=== PATIENT | female | born 1965 | race Caucasian/White ===

== ENCOUNTER 2019-10-20 11:30 | Observation (INO) ==
[2019-10-20 12:18] LABS: Basophils # 0.1 K/mm3 (0-0.2); Basophils % 0.4 % (0.1-2.0); Eosinophils # 0.2 K/mm3 (0.0-0.4); Eosinophils % 1.3 % (0.1-12.0); Hematocrit 29.3 % (37.0-47.0); Hemoglobin 9.2 g/dL (12.2-16.2); Lymphocytes # 2.6 K/mm3 (0.7-4.5); Lymphocytes % 18.7 % (10-50); Mean Corpuscular HGB Conc 31.6 g/dL (31.8-35.4); Mean Corpuscular Volume 86.8 fl (81-99); Mean Platelet Volume 8.1 fl (7.4-10.4); Monocytes # 0.8 K/mm3 (0.1-1.0); Monocytes % 5.7 % (1.7-9.3); Neutrophils # 10.4 K/mm3 (1.8-7.8); Platelet Count 267 K/mm3 (142-424); Red Blood Count 3.37 M/mm3 (4.20-5.40); Red Cell Distribution Width 17.2 % (11.5-17.5); White Blood Count 14.1 K/mm3 (4.8-10.8)
--- NOTE | 2019-10-20 12:25 | Emergency Department Note ---
ED Disposition Clinical Impression: Upper GI bleed Shoulder pain Qualifiers: Chronicity: acute Laterality: bilateral Qualified Code(s): M25.511 - Pain in right shoulder; M25.512 - Pain in left shoulder Disposition: Admitted as Observation Condition on Discharge: Fair Referrals: Jairo Gibson [Primary Care Provider] - - Critical Care Critical Care Time: No Attestation: On 10/20/19, the high probability of a clinically significant, sudden or life threatening deterioration of the following system(s) required my full and direct attention, intervention and personal management. The time I documented below is in addition to time spent performing reported procedures but includes the following listed in this critical care notation. Medical Decision Making - Edwar Inquiry Pt receiving controlled substance: Yes Edwar was queried for this patient: No Reason not queried -: Emergent pt cond-no time Risks and benefits of using a controlled substance: were not discussed with pt by me Vital Signs: 10/20/19 11:47 Pulse Rate [Right] 81 Respiratory Rate 16 Blood Pressure [Right Arm] 106/62 L Blood Pressure Mean [Right Arm] 76 Blood Pressure Source [Right Arm] Automatic Cuff Blood Pressure Position [Right Arm] Sitting 02 Sat by Pulse Oximetry 100 Oxygen Delivery Method Room Air - Lab Data Lab Results 10/20/19 12:06: WBC 14.1 H, RBC 3.37 L, Hgb 9.2 L, Hct 29.3 L, MCV 86.8, MCH 27.4, MCHC 31.6 L, RDW 17.2, Plt Count 267, MPV 8.1, Neut % (Auto) 74.0, Lymph % (Auto) 18.7, [place] % (Auto) 5.7, Eos % (Auto) 1.3, Baso % (Auto) 0.4, Neut # (Auto) 10.4 H, Lymph # (Auto) 2.6, [place] # (Auto) 0.8, Eos # (Auto) 0.2, Baso # (Auto) 0.1 10/20/19 12:06: Sodium 139, Potassium 3.5, Chloride 106, Carbon Dioxide 28, Anion Gap 8.5, BUN 9, Creatinine 0.72, Estimated Creat Clear 86, Estimated GFR 84, Est GFR ( Amer) 102, Glucose 107 H, Calcium 8.6, Total Bilirubin 0.3, AST 26, ALT 27, Alkaline Phosphatase 90, Troponin I < 0.02, Total Protein 7.2, Albumin 2.9 L, Globulin 4.3 H, Albumin/Globulin Ratio 0.7 L, Amylase 21 L, Lipase 62 L 10/20/19 12:35: Stool Occult Blood Positive A 10/20/19 13:30: Urine Color Yellow, Urine Appearance Clear, Urine pH 6.5, Ur Specific [place] 1.015, Urine Protein Negative, Urine Glucose (UA) Negative, Urine Ketones Negative, Urine Blood Negative, Urine Nitrate Negative, Urine Bilirubin Negative, Urine Urobilinogen 0.2, Ur Leukocyte Esterase Negative, Urine RBC 5-10, Urine WBC 3-5, Ur Squamous Epith Cells 5-10, Amorphous Sediment Trace, Urine Mucus 1+ Result diagrams: 10/20/19 12:06 10/20/19 12:06 Orders (Tests/Meds): ED MEDICATIONS Discontinued Medications Generic Name Dose Route Start Last Admin Trade Name Freq PRN Reason Stop Dose Admin Sodium Chloride 1,000 mls @ 999 mls/hr 10/20/19 12:15 10/20/19 12:13 Sod Chlor 0.9% 1000ml Bag IV 10/20/19 13:15 999 mls/hr .Q1H1M JAVIER Administration Ioversol 75 ml 10/20/19 13:11 10/20/19 13:13 Rad-Optiray 350 100ml Vial IV 10/20/19 13:12 75 ml ONCE ONE Administration Protocol Morphine Sulfate 4 mg 10/20/19 12:48 10/20/19 13:27 Morphine 4mg/Ml Syringe IV 10/20/19 12:49 4 mg ONCE ONE Administration Ondansetron HCl 4 mg 10/20/19 12:48 10/20/19 13:26 Zofran 4mg/2ml Vial IV 10/20/19 12:49 4 mg ONCE ONE Administration ORDERS Category Date Time Status Shoulder XR right miminum 2 views [XR shoulder RT min Exams 10/20/19 12:41 Taken 2V] Stat Troponin I Q3H Lab 10/20/19 15:15 Ordered Troponin I Q3H Lab 10/20/19 18:15 Ordered - Radiology Data #1 Image(s): Chest, Shoulder (bilateral) Image Reviewed: Yes I reviewed the patient's radiology image Chest: Minimal atelectasis left base. Right shoulder: Degenerative changes at the AC joint. No acute process. Left shoulder: No significant findings. - CT Data CT Scan: Abdomen, Pelvis Time Received: 13:[address] Reviewed: Yes: I have viewed the radiologist's interpretation Findings Narrative: FINDINGS: LOWER THORAX: Coronary artery calcifications are. There are mild atelectatic changes in the lung bases there is a small nodular opacity noted in the lateral aspect of the right breast. While this could be related to fibroglandular tissue, a small breast nodule is also consideration. Nonemergent mammography and possible ultrasound suggested evaluation. ABDOMEN & PELVIS: Fatty liver. Cholelithiasis. The spleen, pancreas, and right adrenal gland marker below. Left adrenal gland is mildly with low-density changes consistent with an adenoma. There are nonobstructing bilateral renal calculi measuring 3 mm in the mid polar region on right and 3 mm in the upper pole on the left. No hydronephrosis. No ureteral calculi. There is given history of prior appendectomy and hysterectomy. No intestinal obstruction or free air. There are scattered colonic diverticula but no evidence of diverticulitis. No pelvic mass or abnormal fluid collection evident. There are mild degenerative changes in the spine. IMPRESSION: 1. Cholelithiasis with fatty liver. 2. Nonobstructing bilateral renal calculi 3. Diverticulosis of the colon. No evidence of diverticulitis 4. Bibasilar atelectasis. 5. 5 mm nodular opacity right breast. Consider nonemergent mammography and ultrasound for further evaluation. Dictated by: Marquez Horowitz MD 10/20/2019 13:43 Electronically signed by Marquez Horowitz MD in [place] 10/20/2019 13:43 - ECG Data Tracing #1 EKG interpreted by Kishan Prakash MD: Rhythm: sinus Rate: 79 Christopher: normal Ectopy: Unifocal premature ventricular contractions Conduction: QTC [address] Segment Changes: none T Wave Changes: none Q Waves: none No evidence of acute ischemia or injury Baseline artifact and wander present, but I consider the EKG adequate for accu rate interpretation. - Physician Consults Physician Consulted: Minnie Time: 14:05 Reason -: Gastroenterolgy Eval/Care Comment/Response: He is out of town and not available. Nobody is covering. No other gastroenterologists at [facility]. Additional Consult: Anna Time: 14:15 Reason -: Admission Comment/Response: Agrees to admit the patient to the hospital. We discussed the patient's clinical information, including history, exam, laboratory and radiology results and ED course. Per hospital procedure, I will write temporary bridge inpatient orders on the patient. Specific orders requested by the admitting physician: Protonix drip. Serial hemoglobins. General Adult HPI - General Chief complaint: Extremity Injury, Upper Stated complaint: shoulders hurting bleeding from ulcers Time Seen by Provider: 10/20/19 12:24 Mode of Arrival: Ambulatory Limitations: No Limitations Description of Symptoms (Recalled from ER Triage Doc. by RN): Patient come to the ED with complaints of bilateral shoulder pain that started last night. Patient explains that she was discharged from [facility] on wednesday from having bleeding ulcers. Patient reports that she is still having bloody stools as of this morning. - History of Present Illness HPI narrative: Patient complains of bilateral shoulder pain and bloody stool. She says that henrik harper was taken by ambulance to [facility] on Wednesday 4 days ago. She says she has been having abdominal pain for couple of days and then began having vomiting of blood and blood in her stool, both black and red. She had upper endoscopy and says that she was diagnosed with a bleeding ulcer. She was discharged on amoxicillin and Protonix. She went home on Wednesday, 2 days ago. She had not had a bowel movement since discharged until today and noticed that she still was passing black and red blood. She denies current abdominal pain. She says on her way home from the hospital on Wednesday she noticed that her left shoulder was hurting and since then also her right shoulder has begun to her. Both hurt with movement. Left is worse than right. Her primary care doctor is Dr. Maki, she says he works out of [place] in [facility]. She lives in [place]. She says she went to [facility] by ambulance because she did not have a choice of where she went, but d oes not like [facility] and prefers [facility]. She came here by private vehicle today. Review of her paperwork from discharge at [facility] shows that her hemoglobin was 9.4. She says she did not have to receive a blood transfusion. She says that she has called to schedule an appointment with the primer charger, Dr. Hartman, but has not received a return call. - Related Data Home Medications Medication Instructions Recorded Confirmed Amoxicillin [Amoxicillin 500mg Tab] 500 mg PO DAILY 10/20/19 10/20/19 Fluticasone Propionate [Flovent 50 mcg IH DAILY 10/20/19 10/20/19 Diskus] Pantoprazole Sodium [Protonix 40mg 40 mg PO BID 10/20/19 10/20/19 tablet] Ropinirole HCl 0.5 mg PO DAILY 10/20/19 10/20/19 Allergies Allergy/AdvReac Type Severity Reaction Status Date / Time No Known Allergies Allergy Verified 10/20/19 11:56 [facility] History - Hepatitis A Screen Drug use history?: No High risk sexual behaviors?: No History of sexually transmitted infection?: No Currently employed?: No Childcare worker?: No Do you have indoor plumbing?: Yes Do you have electricity?: Yes Attestation statement:: This patient has been screened for Hepatitis A risk factors. I have reviewed the patient's past medical history: Yes - Social History Alcohol Intake: never Occupational Status: disabled ROS Obtained: Yes All systems reviewed & no additional complaints - Constitutional Constitutional: Denies fever(s) - Cardiovascular Cardiovascular: Denies chest pain - Respiratory Respiratory: No dyspnea - Gastrointestinal Gastrointestingal: Reports: bright red blood in stools, black, tarry stools. Denies: abdominal pain - Musculoskeletal Musculoskeletal: Reports as per HPI Physical Exam - General General appearance: alert, in no apparent distress - Head Head exam: atraumatic, normocephalic - Eye Eye exam: Present: normal appearance, EOMI - ENT ENT exam: Present: mucous membranes moist - Neck Neck exam: Present: normal inspection, trachea midline - Chest Chest inspection: Present: normal inspection, symmetric chest wall rise - Respiratory Respiratory exam: Present: normal lung sounds bilaterally. Absent: respiratory distress - Cardiovascular Cardiovascular exam: Present: regular rate, normal rhythm, normal heart sounds - Abdominal Exam Abdominal exam: Present: soft. Absent: distention, tenderness - Rectal Exam comment: Maroon-colored blood/stool present. No masses. - Extremities Exam Extremities exam: Present: normal inspection - Neurological Exam Neurological exam: Present: alert, oriented X3 - Psychiatric Psychiatric exam: Present: normal affect, normal mood - Skin Skin exam: Present: warm, dry
[2019-10-20 12:36] LABS: Alanine Aminotransferase 27 U/L (12-78); Albumin Level 2.9 gm/dL (3.4-5.0); Albumin/Globulin Ratio 0.7 (1.1-1.8); Alkaline Phosphatase 90 U/L (46-116); Amylase 21 U/L (25-115); Anion Gap 8.5 mEq/L (5-15); Aspartate Amino Transferase 26 U/L (15-37); Bilirubin,Total 0.3 mg/dL (0.2-1.0); Blood Urea Nitrogen 9 mg/dL (7-18); Calcium 8.6 mg/dL (8.5-10.1); Carbon Dioxide 28 mmol/L (21.0-32.0); Chloride 106 mmol/L (98-107); Globulin 4.3 gm/dl (1.3-3.2); Glucose 107 mg/dL (74-106); Sodium 139 mmol/L (136-145); Total Protein,Serum 7.2 gm/dL (6.4-8.2)
[2019-10-20 13:37] LABS: Microscopic, Urine URINE MICROSCOPIC (MICROSCOPIC)
[2019-10-20 13:38] LABS: Appearance,Urine CLEAR (Clear); Bilirubin,Urine Negative (Negative); Blood, Urine Negative (Negative); Color,Urine YELLOW (Yellow); Glucose,Urine (UA) Negative (Negative); Ketones,Urine Negative (Negative); Leukocyte Esterase,Urine Negative (Negative); PH,Urine 6.5 (5.0-8.5); Protein,Urine Negative (Negative); Specific Gravity, Urine 1.015 (1.005-1.030); Urobilinogen,Urine 0.2 EU/dl (0.2)
[2019-10-20 13:48] LABS: Amorphous Sediment,Urine Trace /lpf
[2019-10-20 13:49] LABS: Mucus,Urine 1+ /lpf
--- NOTE | 2019-10-20 15:01 | History & Physical Report ---
*Admission Date: 10/20/19 <Pati Farrar 10/20/19 15:26> *Chief complaint: shoulder pain, GI bleed <Pati Farrar 10/20/19 15:26> *History of present illness: Ms. Michelle is a 54-year-old female patient of Dr. Acosta. She states she began having stomach pain on October 13. This continued until October 16. On the morning of October 16, she had an episode of diarrhea with dark black stool. She then had some hematemesis. She presented to [facility] and was admitted. She had an EGD and was diagnosed with a stomach ulcer. She states she was discharged home on 10/18/2019 on Protonix, amoxicillin, and nose spray. She is unsure why she was discharged on the hunter xicillin and nose spray. She had no further vomiting or episodes of diarrhea until this morning. She had another bloody bowel movement this a.m. and began having severe pain in both of her shoulders. She presented to the ER for further evaluation and treatment. X-rays were done of the shoulders. The right shoulder x-ray showed osteoarthritis of the AC joint with some subacromial stenosis and possible calcific tendinitis. The left shoulder x-ray only showed mild hypertrophic changes at the AC joint. Her chest x-ray showed bibasilar atelectasis but nothing acute. She had an abdominal pelvic CT showing cholelithiasis with fatty liver, nonobstructing bilateral renal calculi, diverticulosis of the gland, and a 5 mm nodular opacity in the right breast. She was admitted for a GI bleed and started on a Protonix drip. Her H&H will be monitored. <Pati Farrar - 10/20/19 15:26> [facility] History I have reviewed the patient's past medical history: Yes <Pati Farrar 10/20/19 15:26> Medical History: Reports:: Ulcer Denies:: Diabetes Mellitus Type 2, Hyperlipidemia, Hypertension <Pati Farrar 10/20/19 15:26> *Have you ever received a pneumonia vaccine?: No <Pati Farrar 10/20/19 15:26> *Have you received a flu vaccine this season?: No <Pati Farrar 10/20/19 15:26> Other Surgeries: Yes: Appendectomy, Hysterectomy-Partial <Pati Farrar 10/20/19 15:26> - *Social History Smoking Status: Current every day smoker <Pati Farrar 10/20/19 15:26> # Packs/Day (cigarettes): 2 <Pati Farrar 10/20/19 15:26> Alcohol Intake: never <Pati Farrar 10/20/19 15:26> *Occupational Status:: disabled <Pati Farrar 10/20/19 15:26> *Travel in the last 8 weeks: None <Pati Farrar 10/20/19 15:26> Family Hx:: Cancer, Diabetes, Heart Attack, Hypertension, Stroke <Pati Farrar 10/20/19 15:26> Review of Systems - Constitutional Reports fever(s), Reports weakness, Denies chills <Pati Farrar 10/20/19 15:26> - Eyes Denies blurry vision, Denies double vision <Pati Farrar 10/20/19 15:26> - ENT Denies nasal congestion, Denies sore throat <Pati Farrar 10/20/19 15:26> - *Cardiovascular Reports shortness of breath, Denies chest pain <Pati Farrar 10/20/19 15:26> - *Respiratory Reports cough, Denies shortness of breath <Pati Farrar 10/20/19 15:26> - *Gastrointestinal Reports loose stools, Reports black, tarry stools, Denies abdominal pain, Denies vomiting blood, Denies nausea, Denies vomiting <Pati Farrar 10/20/19 15:26> - *Genitourinary Denies difficulty urinating, Denies painful urination <Pati Farrar 10/20/19 15:26> - *Musculoskeletal Reports joint pain (bilateral shoulders) <Pati Farrar 10/20/19 15:26> - *Neurologic Reports weakness, Denies headache(s), Denies dizziness <Pati Farrar 10/20/19 15:26> Meds Home Medications Medication Instructions Recorded Confirmed Type Amoxicillin [Amoxicillin 500mg Tab] 500 mg PO TID 10/20/19 10/20/19 History Fluticasone Propionate [Flonase 2 spr NS DAILY 10/20/19 10/20/19 History 50mcg nasal spray 16gm] Pantoprazole Sodium [Protonix 40mg 40 mg PO BID 10/20/19 10/20/19 History tablet] Ropinirole HCl 0.5 mg PO HS 10/20/19 10/20/19 History <Asim Castillo - 10/20/19 18:17> Allergies Allergy/AdvReac Type Severity Reaction Status Date / Time No Known Allergies Allergy Verified 10/20/19 11:56 <Asim Castillo - 10/20/19 18:17> Exam Vital signs and Labs for Last 24 Hours: Temp Pulse Resp BP Pulse Ox 97.8 F 87 18 111/57 L 97 10/20/19 16:00 10/20/19 16:00 10/20/19 16:00 10/20/19 16:00 10/20/19 16:53 Laboratory Results - last 24 hr 10/20/19 12:06: WBC 14.1 H, RBC 3.37 L, Hgb 9.2 L, Hct 29.3 L, MCV 86.8, MCH 27.4, MCHC 31.6 L, RDW 17.2, Plt Count 267, MPV 8.1, Neut % (Auto) 74.0, Lymph % (Auto) 18.7, [place] % (Auto) 5.7, Eos % (Auto) 1.3, Baso % (Auto) 0.4, Neut # (Auto) 10.4 H, Lymph # (Auto) 2.6, [place] # (Auto) 0.8, Eos # (Auto) 0.2, Baso # (Auto) 0.1 10/20/19 12:06: Sodium 139, Potassium 3.5, Chloride 106, Carbon Dioxide 28, Anion Gap 8.5, BUN 9, Creatinine 0.72, Estimated Creat Clear 86, Estimated GFR 84, Est GFR ( Amer) 102, Glucose 107 H, Calcium 8.6, Total Bilirubin 0.3, AST 26, ALT 27, Alkaline Phosphatase 90, Troponin I < 0.02, Total Protein 7.2, Albumin 2.9 L, Globulin 4.3 H, Albumin/Globulin Ratio 0.7 L, Amylase 21 L, Lipase 62 L 10/20/19 12:35: Stool Occult Blood Positive A 10/20/19 13:30: Urine Color Yellow, Urine Appearance Clear, Urine pH 6.5, Ur Specific [place] 1.015, Urine Protein Negative, Urine Glucose (UA) Negative, Urine Ketones Negative, Urine Blood Negative, Urine Nitrate Negative, Urine Bilirubin Negative, Urine Urobilinogen 0.2, Ur Leukocyte Esterase Negative, Urine RBC 5-10, Urine WBC 3-5, Ur Squamous Epith Cells 5-10, Amorphous Sediment Trace, Urine Mucus 1+ 10/20/19 15:19: Troponin I < 0.02 <Asim Castillo - 10/20/19 18:17> Pulse Resp BP Pulse Ox 81 16 106/62 L 100 10/20/19 11:47 10/20/19 11:47 10/20/19 11:47 10/20/19 11:47 Laboratory Results - last 24 hr 10/20/19 12:06: WBC 14.1 H, RBC 3.37 L, Hgb 9.2 L, Hct 29.3 L, MCV 86.8, MCH 27.4, MCHC 31.6 L, RDW 17.2, Plt Count 267, MPV 8.1, Neut % (Auto) 74.0, Lymph % (Auto) 18.7, [place] % (Auto) 5.7, Eos % (Auto) 1.3, Baso % (Auto) 0.4, Neut # (Auto) 10.4 H, Lymph # (Auto) 2.6, [place] # (Auto) 0.8, Eos # (Auto) 0.2, Baso # (Auto) 0.1 10/20/19 12:06: Sodium 139, Potassium 3.5, Chloride 106, Carbon Dioxide 28, Anion Gap 8.5, BUN 9, Creatinine 0.72, Estimated Creat Clear 86, Estimated GFR 84, Est GFR ( Amer) 102, Glucose 107 H, Calcium 8.6, Total Bilirubin 0.3, AST 26, ALT 27, Alkaline Phosphatase 90, Troponin I < 0.02, Total Protein 7.2, Albumin 2.9 L, Globulin 4.3 H, Albumin/Globulin Ratio 0.7 L, Amylase 21 L, Lipase 62 L 10/20/19 12:35: Stool Occult Blood Positive A 10/20/19 13:30: Urine Color Yellow, Urine Appearance Clear, Urine pH 6.5, Ur Specific [place] 1.015, Urine Protein Negative, Urine Glucose (UA) Negative, Urine Ketones Negative, Urine Blood Negative, Urine Nitrate Negative, Urine Bilirubin Negative, Urine Urobilinogen 0.2, Ur Leukocyte Esterase Negative, Urine RBC 5-10, Urine WBC 3-5, Ur Squamous Epith Cells 5-10, Amorphous Sediment Trace, Urine Mucus 1+ <Luis ManuelteresitaPati - 10/20/19 15:26> I & O for Last 24 hours: Intake & Output 10/18/19 10/19/19 10/20/19 10/21/19 11:59 11:59 11:59 11:59 Intake Total 360 / 360 Balance 360 / 360 Weight 315 lb 313 lb 5 oz <AnnaAsim Stroud - 10/20/19 18:17> Intake & Output 10/18/19 10/19/19 10/20/19 10/21/19 11:59 11:59 11:59 11:59 Weight 315 lb <CharanPati 10/20/19 15:26> - Constitutional no acute distress <Luis ManuelteresitaPati 10/20/19 15:26> - *Routine HEENT Exam Head: Present: normocephalic <Luis ManuelteresitaPati 10/20/19 15:26> Eye: Present: EOMI, PERRL <Luis ManuelteresitaPati 10/20/19 15:26> ENT: Present: mucous membranes moist <CharanPati 10/20/19 15:26> - *Routine Neck Exam Present: supple. Absent: lymphadenopathy <CharanPati 10/20/19 15:26> - *Routine Respiratory Exam Present: CTA bilaterally <CharanPati 10/20/19 15:26> - *Routine Cardiovascular Exam Present: RRR <CharanPati 10/20/19 15:26> - *Routine Abdominal Exam Present: soft, normoactive bowel sounds. Absent: tenderness <CharanPati 10/20/19 15:26> - *Routine Extremities Exam Present: edema (1+ leg edema bilaterally). Absent: cyanosis, clubbing <Pati Farrar 10/20/19 15:26> - *Routine Skin Exam Present: warm. Absent: rash <Pati Farrar - 10/20/19 15:26> - *Routine Neurological Exam Present: alert, oriented X3 <Pati Farrar 10/20/19 15:26> - Detailed Upper Extremity Exam Shoulder/Upper Arm: Bilateral normal inspection, Bilateral tenderness (over bilateral AC joints), Bilateral decreased ROM <Pati Farrar - 10/20/19 15:26> H&P: Result - Impressions Abd CT 1. Cholelithiasis with fatty liver. 2. Nonobstructing bilateral renal calculi 3. Diverticulosis of the colon. No evidence of diverticulitis 4. Bibasilar atelectasis. 5. 5 mm nodular opacity right breast. Consider nonemergent mammography and ultrasound for further evaluation. CXR - Bibasilar atelectasis otherwise negative X-ray Right Shoulder Osteoarthritic change of the AC joint with bony spurring and subacromial stenosis with possible calcific tendinitis X-ray left shoulder Mild hypertrophic change of the AC joint otherwise negative <Pati Farrar - 10/20/19 15:26> Assessment and Plan (1) Upper GI bleed Current visit: Yes Status: Acute Category: Medical Code(s): K92.2 - Gastrointestinal hemorrhage, unspecified (2) Shoulder pain Current visit: Yes Status: Acute Qualifiers: Chronicity: acute Laterality: bilateral Qualified Code(s): M25.511 - Pain in right shoulder; M25.512 - Pain in left shoulder Category: Medical Code(s): M25.519 - Pain in unspecified shoulder <Pati Farrar - 10/20/19 14:58> (1) Upper GI bleed Current visit: Yes Status: Acute Category: Medical Code(s): K92.2 - Gastrointestinal hemorrhage, unspecified (2) Shoulder pain Current visit: Yes Status: Acute Qualifiers: Chronicity: acute Laterality: bilateral Qualified Code(s): M25.511 - Pain in right shoulder; M25.512 - Pain in left shoulder Category: Medical Code(s): M25.519 - Pain in unspecified shoulder <AnnaAsim Maximus - 10/20/19 18:17> - Assessment and plan all Dx Assessment and Plan for all problems:: Patient seen and examined. Her chief complaint is bilateral shoulder pain which has started since she was discharged from [place] 2 days ago. No other joints are bothering her. She has had no known injuries to the joints. I have reviewed her shoulder x-rays which show only minor arthritic changes not significant enough to account for her pain. She is tender to light palpation all around the shoulder joints bilaterally. In reviewing the side effect profile for Protonix, arthralgia is listed as an adverse reaction. For the time being, we will discontinue her Protonix and place her on IV Pepcid. She has had some relief with the Percocet. I will also give her a dose of Solu-Medrol tonight. In terms of her recent ulcer and GI bleeding, her hemoglobin appears to be stable. We will check serial H&H's tonight. Likely she is experiencing passage of old blood from her recent upper GI bleeding. <Asim Castillo - 10/20/19 18:17> Will admit and start on a protonix drip and check serial H&H's. Will discuss shoulder pain with Dr. Castillo. <Pati Farrar - 10/20/19 15:26>
--- NOTE | 2019-10-20 15:48 | Pharmacy Consult Notes ---
[facility] Pharmacy VTE Monitoring - Patient Demographics Admission date: 10/20/19 Report Date: 10/20/19 Time: 15:55 Allergies/Adverse Reactions: Patient Allergies No Known Allergies Allergy (Verified 10/20/19 11:56) Height: 1.7 m Weight: 142.116 kg Patient Problems: Current Active Problems Upper GI bleed (Acute) Shoulder pain (Acute) - VTE Risk Labs: VTE Related Lab Results Hgb 9.2 g/dL (12.2-16.2) L 10/20/19 12:06 Hct 29.3 % (37.0-47.0) L 10/20/19 12:06 Plt Count 267 K/mm3 (142-424) 10/20/19 12:06 BUN 9 mg/dL (7-18) 10/20/19 12:06 Creatinine 0.72 mg/dL (0.55-1.02) 10/20/19 12:06 Estimated Creat Clear 86 mL/min (50-200) 10/20/19 12:06 - Prophylaxis VTE Prophylaxis Ordered?: Yes Types of VTE Prophylaxis: TEDS Knee High Location of Applied Device: Bilateral Lower Extremeties
[2019-10-20 22:15] LABS: Basophils % 0.2 % (0.1-2.0); Eosinophils % 0.3 % (0.1-12.0); Hemoglobin 8.6 g/dL (12.2-16.2); Lymphocytes # 1.1 K/mm3 (0.7-4.5); Mean Corpuscular HGB Conc 32.1 g/dL (31.8-35.4); Mean Corpuscular Volume 83.8 fl (81-99); Monocytes # 0.3 K/mm3 (0.1-1.0); Monocytes % 2.4 % (1.7-9.3); Neutrophils # 12.1 K/mm3 (1.8-7.8); Neutrophils % 89.1 % (37.0-80.0); Platelet Count 243 K/mm3 (142-424); Red Blood Count 3.21 M/mm3 (4.20-5.40); Red Cell Distribution Width 16.4 % (11.5-17.5); White Blood Count 13.5 K/mm3 (4.8-10.8)
[2019-10-20 22:16] LABS: Hematocrit 26.9 % (37.0-47.0)
[2019-10-20 22:34] LABS: Lymphocytes % 8 % (10-50); Monocytes % 1 % (2-9); Neutrophils % 84 % (42-76); Total Cells Counted 100
[2019-10-20 22:35] LABS: RBC Morphology Normal
[2019-10-21 06:34] LABS: Basophils % 0.1 % (0.1-2.0); Eosinophils % 0.1 % (0.1-12.0); Hematocrit 26.6 % (37.0-47.0); Hemoglobin 8.5 g/dL (12.2-16.2); Lymphocytes # 1.5 K/mm3 (0.7-4.5); Lymphocytes % 10.8 % (10-50); Mean Corpuscular HGB Conc 31.9 g/dL (31.8-35.4); Mean Corpuscular Volume 85.1 fl (81-99); Mean Platelet Volume 8.4 fl (7.4-10.4); Monocytes # 0.6 K/mm3 (0.1-1.0); Monocytes % 3.8 % (1.7-9.3); Neutrophils # 12.2 K/mm3 (1.8-7.8); Neutrophils % 85.3 % (37.0-80.0); Platelet Count 247 K/mm3 (142-424); Red Blood Count 3.12 M/mm3 (4.20-5.40); Red Cell Distribution Width 16.2 % (11.5-17.5); White Blood Count 14.3 K/mm3 (4.8-10.8)
[2019-10-21 07:07] LABS: Hypochromasia 1+; Lymphocytes % 11 % (10-50); Monocytes % 4 % (2-9); Neutrophils % 85 % (42-76); Total Cells Counted 100
--- NOTE | 2019-10-21 08:44 | Progress Note ---
Internal Medicine - PN: Subj *Date: 10/21/19 *Time: 08:25 Interval history: She finally rested some last night after better pain control with the Percocet. Her left shoulder pain has almost completely resolved. She still has significant pain in the right shoulder with decreased range of motion. Denies abdominal pain or nausea. She is tolerating her diet. Exam Vital signs and Labs for Last 24 Hours: Temp Pulse Resp BP Pulse Ox 97.6 F 71 18 107/64 L 98 10/21/19 07:18 10/21/19 07:18 10/21/19 07:18 10/21/19 07:18 10/21/19 07:30 Laboratory Results - last 24 hr 10/20/19 12:06: WBC 14.1 H, RBC 3.37 L, Hgb 9.2 L, Hct 29.3 L, MCV 86.8, MCH 27.4, MCHC 31.6 L, RDW 17.2, Plt Count 267, MPV 8.1, Neut % (Auto) 74.0, Lymph % (Auto) 18.7, [place] % (Auto) 5.7, Eos % (Auto) 1.3, Baso % (Auto) 0.4, Neut # (Auto) 10.4 H, Lymph # (Auto) 2.6, [place] # (Auto) 0.8, Eos # (Auto) 0.2, Baso # (Auto) 0.1 10/20/19 12:06: Sodium 139, Potassium 3.5, Chloride 106, Carbon Dioxide 28, Anion Gap 8.5, BUN 9, Creatinine 0.72, Estimated Creat Clear 86, Estimated GFR 84, Est GFR ( Amer) 102, Glucose 107 H, Calcium 8.6, Total Bilirubin 0.3, AST 26, ALT 27, Alkaline Phosphatase 90, Troponin I < 0.02, Total Protein 7.2, Albumin 2.9 L, Globulin 4.3 H, Albumin/Globulin Ratio 0.7 L, Amylase 21 L, Lipase 62 L 10/20/19 12:06: ESR 121 H 10/20/19 12:06: C-Reactive Protein 6.2 H 10/20/19 12:35: Stool Occult Blood Positive A 10/20/19 13:30: Urine Color Yellow, Urine Appearance Clear, Urine pH 6.5, Ur Specific [place] 1.015, Urine Protein Negative, Urine Glucose (UA) Negative, Urine Ketones Negative, Urine Blood Negative, Urine Nitrate Negative, Urine Bilirubin Negative, Urine Urobilinogen 0.2, Ur Leukocyte Esterase Negative, Urine RBC 5-10, Urine WBC 3-5, Ur Squamous Epith Cells 5-10, Amorphous Sediment Trace, Urine Mucus 1+ 10/20/19 15:19: Troponin I < 0.02 10/20/19 18:13: Troponin I < 0.02 10/20/19 21:08: WBC 13.5 H, RBC 3.21 L, Hgb 8.6 L, Hct 26.9 L, MCV 83.8, MCH 26.9 L, MCHC 32.1, RDW 16.4, Plt Count 243, MPV 8.0, Neut % (Auto) 89.1 H, Lymph % (Auto) 8.0 L, [place] % (Auto) 2.4, Eos % (Auto) 0.3, Baso % (Auto) 0.2, Neut # (Auto) 12.1 H, Lymph # (Auto) 1.1, [place] # (Auto) 0.3, Eos # (Auto) 0.0, Baso # (Auto) 0.0, Total Counted 100, Neutrophils % (Manual) 84 H, Band Neutrophils % 7.0, Lymphocytes % (Manual) 8 L, Monocytes % (Manual) 1 L, Platelet Estimate Normal, RBC Morphology Normal 10/21/19 05:55: WBC 14.3 H, RBC 3.12 L, Hgb 8.5 L, Hct 26.6 L, MCV 85.1, MCH 27.1, MCHC 31.9, RDW 16.2, Plt Count 247, MPV 8.4, Neut % (Auto) 85.3 H, Lymph % (Auto) 10.8, [place] % (Auto) 3.8, Eos % (Auto) 0.1, Baso % (Auto) 0.1, Neut # (Auto) 12.2 H, Lymph # (Auto) 1.5, [place] # (Auto) 0.6, Eos # (Auto) 0.0, Baso # (Auto) 0.0, Total Counted 100, Neutrophils % (Manual) 85 H, Lymphocytes % (Manual) 11, Monocytes % (Manual) 4, Platelet Estimate Normal, Hypochromasia 1+ I & O for Last 24 hours: Intake & Output 10/18/19 10/19/19 10/20/19 10/21/19 11:59 11:59 11:59 11:59 Intake Total 1420 / 1420 Balance 1420 / 1420 Weight 315 lb 318 lb 4 oz Narrative: Is sitting up in bed and appears in no acute distress. Chest with coarse breath sounds. No rales or wheezes. Heart is distant but regular. Abdomen is nondistended with no masses or tenderness. Left shoulder shows minimal AC tenderness. She has full range of motion of the left shoulder. Right shoulder shows no deformity. She has tenderness to palpation over the AC joint and anterior shoulder Assessment and Plan (1) Peptic ulcer disease Current visit: Yes Status: Acute Category: Medical Code(s): K27.9 - Peptic ulcer, site unspecified, unspecified as acute or chronic, without hemorrhage or perforation (2) Blood loss anemia Current visit: Yes Status: Acute Category: Medical Code(s): D50.0 - Iron deficiency anemia secondary to blood loss (chronic) (3) Shoulder pain Current visit: Yes Status: Acute Qualifiers: Chronicity: acute Laterality: bilateral Qualified Code(s): M25.511 - Pain in right shoulder; M25.512 - Pain in left shoulder Category: Medical Code(s): M25.519 - Pain in unspecified shoulder - Assessment and plan all Dx Assessment and Plan for all problems:: She has had a slight drop in her hemoglobin overnight but is hemodynamically stable. Etiology of shoulder pain is still unclear. The left shoulder pain has resolved but the right shoulder pain persists. Sed rate and CRP are elevated consistent with an inflammatory reaction. Literature does list arthralgias as a potential adverse reaction to Protonix. Plan is to repeat her H&H at noon today. If it remains stable, she can likely be discharged later today
[2019-10-21 12:12] LABS: Basophils # 0.1 K/mm3 (0-0.2); Basophils % 0.3 % (0.1-2.0); Eosinophils % 0.2 % (0.1-12.0); Hematocrit 28.9 % (37.0-47.0); Hemoglobin 9.1 g/dL (12.2-16.2); Lymphocytes # 2.3 K/mm3 (0.7-4.5); Lymphocytes % 11.8 % (10-50); Mean Corpuscular HGB Conc 31.5 g/dL (31.8-35.4); Mean Corpuscular Volume 85.5 fl (81-99); Mean Platelet Volume 8.4 fl (7.4-10.4); Monocytes # 1.1 K/mm3 (0.1-1.0); Monocytes % 5.9 % (1.7-9.3); Neutrophils # 15.7 K/mm3 (1.8-7.8); Neutrophils % 81.7 % (37.0-80.0); Platelet Count 320 K/mm3 (142-424); Red Blood Count 3.38 M/mm3 (4.20-5.40); Red Cell Distribution Width 16.1 % (11.5-17.5); White Blood Count 19.2 K/mm3 (4.8-10.8)
[2019-10-21 12:21] LABS: Anion Gap 13.4 mEq/L (5-15); Calcium 8.5 mg/dL (8.5-10.1)
--- NOTE | 2019-10-23 13:19 | Discharge Summary ---
General - General Admission date:: 10/20/19 <Asim Castillo - 11/18/19 08:35> 10/20/19 <GuevaraMarilouMarylin - 10/23/19 13:25> Discharge date: 10/21/19 <WatermanMarylin kong - 10/23/19 13:25> HPI HPI: Ms. Michelle is a 54-year-old female patient of Dr. Acosta. She stated she began having stomach pain on October 13. This continued until October 16. On the morning of October 16, she had an episode of diarrhea with dark black stool. She then had some hematemesis. She presented to [facility] and was admitted. She had an EGD and was diagnosed with a stomach ulcer. She sta rakel she was discharged home on 10/18/2019 on Protonix, amoxicillin, and nose spray. She is unsure why she was discharged on the amoxicillin and nose spray. She had no further vomiting or episodes of diarrhea until the morning of admission. She had another bloody bowel movement as well and began having severe pain in both of her shoulders. She presented to the ER for further evaluation and treatment. X-rays were done of the shoulders. The right shoulder x-ray showed osteoarthritis of the AC joint with some subacromial stenosis and possible calcific tendinitis. The left shoulder x-ray only showed mild hypertrophic changes at the AC joint. Her chest x-ray showed bibasilar atelectasis but nothing acute. She had an abdominal pelvic CT showing cholelithiasis with fatty liver, nonobstructing bilateral renal calculi, diverticulosis of the gland, and a 5 mm nodular opacity in the right breast. She was admitted for a GI bleed and started on a Protonix drip with monitoring of her H&H. <Marylin Waterman - 10/23/19 13:25> Hospital Course Hospital Course: Patient's chief complaint was bilateral shoulder pain which started since discharge from [facility] 2 days prior to the admission to [facility]. No other joints were bothering her. She noted no known injuries to the joints. Review of shoulder x-rays showed only minor arthritic changes not significant enough to account for her pain. She was tender to light palpation all around the shoulder joints bilaterally. In review of the side effect profile for Protonix, arthralgia was listed as an adverse reaction. The Protonix was replaced with IV Pepcid. She was noted to have some relief with the Percocet. She was given a dose of Solu-Medrol. In terms of her recent ulcer and GI bleeding, her hemoglobin remained stable. She was felt to be experiencing passage of old blood from her recent upper GI bleeding accounting for the positive occult blood in the stool. She tolerated her diet well. Sed rate and CRP was noted to be elevated consistent with an inflammatory reaction. On 10/21 she seemed to be better. She was discharged home in stable and satisfactory condition. She was given a small amount of Percocet until follow- up with her PCP, Dr. Gibson, in 3 days. She was to continue with the amoxicillin and omeprazole. <Marylin Waterman - 10/23/19 13:58> Objective Vital signs: Temp Pulse Resp BP Pulse Ox 98.7 F 69 19 107/58 L 96 10/21/19 11:17 10/21/19 11:17 10/21/19 11:17 10/21/19 11:17 10/21/19 11:17 <Asim Castillo - 11/18/19 08:35> Temp Pulse Resp BP Pulse Ox 98.7 F 69 19 107/58 L 96 10/21/19 11:17 10/21/19 11:17 10/21/19 11:17 10/21/19 11:17 10/21/19 11:17 <Marylin Waterman - 10/23/19 13:25> Narrative: Exam Vital signs and Labs for Last 24 Hours: Temp Pulse Resp BP Pulse Ox 97.6 F 71 18 107/64 L 98 10/21/19 07:18 10/21/19 07:18 10/21/19 07:18 10/21/19 07:18 10/21/19 07:30 Laboratory Results - last 24 hr 10/20/19 12:06: WBC 14.1 H, RBC 3.37 L, Hgb 9.2 L, Hct 29.3 L, MCV 86.8, MCH 27.4, MCHC 31.6 L, RDW 17.2, Plt Count 267, MPV 8.1, Neut % (Auto) 74.0, Lymph % (Auto) 18.7, [place] % (Auto) 5.7, Eos % (Auto) 1.3, Baso % (Auto) 0.4, Neut # (Auto) 10.4 H, Lymph # (Auto) 2.6, [place] # (Auto) 0.8, Eos # (Auto) 0.2, Baso # (Auto) 0.1 10/20/19 12:06: Sodium 139, Potassium 3.5, Chloride 106, Carbon Dioxide 28, Anion Gap 8.5, BUN 9, Creatinine 0.72, Estimated Creat Clear 86, Estimated GFR 84, Est GFR ( Amer) 102, Glucose 107 H, Calcium 8.6, Total Bilirubin 0.3, AST 26, ALT 27, Alkaline Phosphatase 90, Troponin I < 0.02, Total Protein 7.2, Albumin 2.9 L, Globulin 4.3 H, Albumin/Globulin Ratio 0.7 L, Amylase 21 L, Lipase 62 L 10/20/19 12:06: ESR 121 H 10/20/19 12:06: C-Reactive Protein 6.2 H 10/20/19 12:35: Stool Occult Blood Positive A 10/20/19 13:30: Urine Color Yellow, Urine Appearance Clear, Urine pH 6.5, Ur Specific [place] 1.015, Urine Protein Negative, Urine Glucose (UA) Negative, Urine Ketones Negative, Urine Blood Negative, Urine Nitrate Negative, Urine Bilirubin Negative, Urine Urobilinogen 0.2, Ur Leukocyte Esterase Negative, Urine RBC 5-10, Urine WBC 3-5, Ur Squamous Epith Cells 5-10, Amorphous Sediment Trace, Urine Mucus 1+ 10/20/19 15:19: Troponin I < 0.02 10/20/19 18:13: Troponin I < 0.02 10/20/19 21:08: WBC 13.5 H, RBC 3.21 L, Hgb 8.6 L, Hct 26.9 L, MCV 83.8, MCH 26.9 L, MCHC 32.1, RDW 16.4, Plt Count 243, MPV 8.0, Neut % (Auto) 89.1 H, Lymph % (Auto) 8.0 L, [place] % (Auto) 2.4, Eos % (Auto) 0.3, Baso % (Auto) 0.2, Neut # (Auto) 12.1 H, Lymph # (Auto) 1.1, [place] # (Auto) 0.3, Eos # (Auto) 0.0, Baso # (Auto) 0.0, Total Counted 100, Neutrophils % (Manual) 84 H, Band Neutrophils % 7.0, Lymphocytes % (Manual) 8 L, Monocytes % (Manual) 1 L, Platelet Estimate Normal, RBC Morphology Normal 10/21/19 05:55: WBC 14.3 H, RBC 3.12 L, Hgb 8.5 L, Hct 26.6 L, MCV 85.1, MCH 27.1, MCHC 31.9, RDW 16.2, Plt Count 247, MPV 8.4, Neut % (Auto) 85.3 H, Lymph % (Auto) 10.8, [place] % (Auto) 3.8, Eos % (Auto) 0.1, Baso % (Auto) 0.1, Neut # (Auto) 12.2 H, Lymph # (Auto) 1.5, [place] # (Auto) 0.6, Eos # (Auto) 0.0, Baso # (Auto) 0.0, Total Counted 100, Neutrophils % (Manual) 85 H, Lymphocytes % (Manual) 11, Monocytes % (Manual) 4, Platelet Estimate Normal, Hypochromasia 1+ I & O for Last 24 hours: Intake & Output 10/18/19 10/19/19 10/20/19 10/21/19 11:59 11:59 11:59 11:59 Intake Total 1420 / 1420 Balance 1420 / 1420 Weight 315 lb 318 lb 4 oz Narrative: Is sitting up in bed and appears in no acute distress. Chest with coarse breath sounds. No rales or wheezes. Heart is distant but regular. Abdomen is nondistended with no masses or tenderness. Left shoulder shows minimal AC tenderness. She has full range of motion of the left shoulder. Right shoulder shows no deformity. She has tenderness to palpation over the AC joint and anterior shoulder <Marylin Waterman - 10/23/19 13:58> Results Completed studies during hospitalization [Text1]: 10/20/2019 CT of abdomen/pelvis IMPRESSION: 1. Cholelithiasis with fatty liver. 2. Nonobstructing bilateral renal calculi 3. Diverticulosis of the colon. No evidence of diverticulitis 4. Bibasilar atelectasis. 5. 5 mm nodular opacity right breast. Consider nonemergent mammography and ultrasound for further evaluation. 10/20/2019 chest x-ray IMPRESSION: Bibasilar atelectasis otherwise negative 10/20/2019 right shoulder x-ray IMPRESSION: Osteoarthritic change of the AC joint with bony spurring and subacromial stenosis with possible calcific tendinitis 10/20/2019 left shoulder x-ray IMPRESSION: Mild hypertrophic change of the AC joint otherwise negative <Marylin Waterman - 10/23/19 13:25> DS: Diagnosis - Discharge Diagnosis (1) Peptic ulcer disease Status: Acute (2) Blood loss anemia Status: Acute (3) Shoulder pain Status: Acute <Asim Castillo - 11/18/19 08:35> (1) Peptic ulcer disease Status: Acute (2) Blood loss anemia Status: Acute (3) Shoulder pain Status: Acute <Marylin Waterman - 10/23/19 13:36> Discharge Plan - Patient Discharge Instructions ACTIVITY: Continue current activity <Marylin Waterman 10/23/19 13:25> DIET: continue same diet <Marylin Waterman 10/23/19 13:25> Patient Instructions: DI for Shoulder Pain, Gastrointestinal Bleeding <Asim Castillo - 11/18/19 08:35> Forms: <Asim Castillo - 11/18/19 08:35> - Follow up Plan Follow up with: Jairo Gibson [Primary Care Provider] - 10/24/19 <Asim Castillo - 11/18/19 08:35> Disposition: Home, Self-Care <Asim Castillo - 11/18/19 08:35> Home Medications: Home Medications Medication Instructions Recorded Confirmed Type Amoxicillin [Amoxicillin 500mg Tab] 500 mg PO TID 10/20/19 10/20/19 History Fluticasone Propionate [Flonase 2 spr NS DAILY 10/20/19 10/20/19 History 50mcg nasal spray 16gm] Ropinirole HCl 0.5 mg PO HS 10/20/19 10/20/19 History Omeprazole [Omeprazole 40mg 40 mg PO BID #60 cap 10/21/19 Rx Capsule] Oxycodone HCl/Acetaminophen 1 tab PO Q6H PRN #20 tab 10/21/19 Rx [Percocet 5/325mg tablet] <Asim Castillo - 11/18/19 08:35> Prescriptions/Medication Reconciliation: New Oxycodone HCl/Acetaminophen [Percocet 5/325mg tablet] 1 tab PO Q6H PRN #20 tab PRN Reason: Moderate To Severe Pain Omeprazole [Omeprazole 40mg Capsule] 40 mg PO BID #60 cap Continued Ropinirole HCl 0.5 mg PO HS Amoxicillin [Amoxicillin 500mg Tab] 500 mg PO TID Fluticasone Propionate [Flonase 50mcg nasal spray 16gm] 2 spr NS DAILY Discontinued Pantoprazole Sodium [Protonix 40mg tablet] 40 mg PO BID <Asim Castillo - 11/18/19 08:35> - Problem Reconciliation Problems Reviewed?: Yes <Asim Castillo - 11/18/19 08:35> Yes <Marylin Waterman - 10/23/19 13:58> - Additional Information Additional Information: Patient seen and examined. Concur with plan for discharge as outlined above. <Asim Castillo - 11/18/19 08:35>
--- NOTE | 2019-10-23 16:57 | Electrocardiograph Report ---
APPROVED REPORT Exam: Resting ECG HR:86 bpm ECG Measurements Heart Rate 86 AXES AL 130 P 46 QRSd 80 QRS 72 QT 362 T49 QTc 433 <Conclusion> Normal sinus rhythm Normal ECG Electronically signed by : Pedro Mares, 10/23/2019 16:56:48
--- NOTE | 2019-10-23 16:58 | Electrocardiograph Report ---
APPROVED REPORT Exam: Resting ECG HR:79 bpm ECG Measurements Heart Rate 79 AXES DE 152 P 41 QRSd 88 QRS 7 QT 434 T13 QTc 497 <Conclusion> Sinus rhythm with frequent premature ventricular complexes Prolonged QT Abnormal ECG Electronically signed by : Pedro Mares, 10/23/2019 16:58:26
== END 2019-10-21 14:56 | disposition home or self-care (01) ==
LOC: ER 11:30 → 2ND 14:21 → INTOOBSV 14:21 → 2ND 15:03
PROVIDERS: ADMIT Family Medicine; ATTEND Family Medicine
CPT/HCPCS: 36415; 71020; 71046; 73030; 74177; 80048; 80053; 81001; 82150; 82272; 83690; 84484; 85007; 85025; 85651; 86140; 93005; 96365; 96367; 96375; 99284; G0328; G0378; J2405; Q9967

== ENCOUNTER → 2020-10-18 14:13 | Outpatient (CLI) | payer MEDICAID, SELFPAY ==
--- NOTE | 2020-10-18 14:13 | CT_ITS ---
PROCEDURE: CT SOFT TISSUE NECK WO CON CLINICAL HISTORY: right parotid mass COMPARISON: No exams were available for comparison TECHNIQUE: Oral Contrast: None IV Contrast: None Axial images obtained with sagittal and coronal reformats. All CT scans at the facility use one or more dose reduction, viz: automated exposure control, ma/kV adjustment per patient size (including targeted exams where dose is matched to indication, i.e. head), or iterative reconstruction technique. FINDINGS: Exam performed without contrast. A marker is placed in the right parotid area denoting the area of palpable concern. Numerous small areas of increased density are present in the right parotid gland which may be due to multiple small vessels with a prominent draining facial vein. Parotid AVM is a consideration. Suggest repeating exam with IV contrast for confirmation. Along the posterior aspect and inferior aspect of the parotid on the right there is a small oval soft tissue density and may be due to a small parotid lymph node or a parotid tumor such is a pleomorphic adenoma or Warthin's tumor. There are 4 small nodular densities along the left parotid gland and could be due to small lymph nodes. The nasopharynx, oropharynx, hypopharynx, and glottic and subglottic region have an unremarkable appearance. There is heterogeneous density of the thyroid gland with some calcifications on the left with possible left thyroid nodule. Lung apices are clear. There is scattered small nodes in the neck. There is mild mucosal thickening of the maxillary sinuses. There are degenerative changes of the cervical spine. IMPRESSION: 1. There is numerous small densities within the right parotid gland with prominence of the facial vein. The densities may be related to multiple prominent vessels. Parotid AVM is a consideration. Recommend repeat exam with IV contrast for confirmation. 2. There is a 9 mm density in the inferior aspect of the right parotid peripherally and could be due to small lymph node versus a small pleomorphic adenoma. Follow-up is suggested 3. Heterogeneous density of the thyroid gland with enlargement of the lower pole on the left with some calcifications at this region. Consider thyroid ultrasound for further evaluation. Dictated by: Marquez Horowitz MD 10/19/2020 09:44 Marquez Horowitz MD in [place] 10/19/2020 09:44
== END ==
PROVIDERS: PCP Family Medicine; Visit Provider Family Medicine
DX: K11.8 Other diseases of salivary glands (principal)
CPT/HCPCS: 70490

== ENCOUNTER → 2021-10-17 06:49 | Outpatient (CLI) | payer MEDICAID, SELFPAY ==
--- NOTE | 2021-10-17 06:50 | CT_ITS ---
PROCEDURE INFORMATION: Exam: CT Abdomen Without Contrast Exam date and time: 10/17/2021 6:50 AM Age: 56 years old Clinical indication: Abdominal pain; Patient HX: Left abd flank pain; Additional info: Left flank pain TECHNIQUE: Imaging protocol: Computed tomography images of the abdomen without contrast. Radiation optimization: All CT scans at this facility use at least one of these dose optimization techniques: automated exposure control; mA and/or kV adjustment per patient size (includes targeted exams where dose is matched to clinical indication); or iterative reconstruction. COMPARISON: CT ABDOMEN PELVIS W CON 10/20/2019 1:06 PM FINDINGS: Lungs: There is a small bulla noted within the medial posterior costophrenic angle of the right lung. There are areas of scarring or atelectasis identified within the lingula. Liver: The liver appears enlarged. There is diminished attenuation noted throughout the substance of the liver, compatible with diffuse hepatocellular disease including hepatic steatosis. There is no evidence of intra hepatic mass. No evidence of intrahepatic biliary dilatation. Gallbladder and bile ducts: There are gallstones present within the lumen of the gallbladder. The gallbladder wall does not appear thickened. No evidence of extrahepatic biliary dilatation. Pancreas: Normal. No ductal dilation. Spleen: Normal. No splenomegaly. Adrenals: There is a 2.1 cm well-circumscribed low-attenuation lesion present within the left adrenal gland. Its appearance is compatible with a small adenoma. The right adrenal gland is felt to be unremarkable. Kidneys and ureters: There are bilateral small nonobstructing nephroliths within each kidney. No evidence of mass. No hydronephrosis. Stomach and bowel: Visualized stomach and bowel are unremarkable. No obstruction. No mucosal thickening. Intraperitoneal space: Unremarkable. No free air. No significant fluid collection. Lymph nodes: Unremarkable. No enlarged lymph nodes. Vasculature: Arterial atheromatous calcifications are noted. No abdominal aortic aneurysm. Bones/joints: There are degenerative changes within the thoracic and lumbar spine. No acute fracture. No dislocation. Soft tissues: Unremarkable. IMPRESSION: 1. Hepatomegaly with changes of diffuse hepatocellular disease including hepatic steatosis. 2. Cholelithiasis. 3. 2.1 cm mass left adrenal gland, compatible with a small adrenal adenoma. 4. Bilateral nonobstructing nephroliths of the kidneys. COMMENTS: Consistent with the [employer]'s Incidental Findings Committee white paper (J Am Nish Radiol 2017): For any incidental adrenal lesion greater than 1 cm but less than 4 cm classified in this report as benign, likely benign, or containing fat (including classification as an adenoma or myelolipoma), no follow-up imaging is recommended per consensus recommendations based on imaging criteria. Further lab evaluation could be pursued if warranted based on clinical findings.
== END ==
PROVIDERS: PCP Family Medicine; Visit Provider Family Medicine
DX: D35.02 Benign neoplasm of left adrenal gland (principal)
CPT/HCPCS: 74150

== ENCOUNTER → 2021-11-05 11:15 | Outpatient (CLI) | payer MEDICAID, SELFPAY | PROVIDERS: Visit Provider Surgery | DX: Z01.812 Encounter for preprocedural laboratory examination (principal); Z11.52 Encounter for screening for COVID-19; L82.1 Other seborrheic keratosis | CPT/HCPCS: C9803; U0003; U0005 ==

== ENCOUNTER 2021-11-07 09:15 | Day surgery (SDC) | payer MEDICAID, SELFPAY ==
[2021-11-03 12:42] VITALS: BMI 49.6
[2021-11-07 09:58] VITALS: BP 126/44; PULSE 62; RESP 18; TEMP 36.3; O2SAT 98
--- NOTE | 2021-11-07 11:36 | [facility].OPNOTE ---
Date of procedure: 11/07/21 Pre-op Diagnosis:: Right arm skin lesions (x2) Note: The lesions are 6 mm and 3 mm respectively Post-op Diagnosis:: Same Procedure performed:: Excision of right arm skin lesions (6 mm and 3 mm) Surgeon:: Micah Valenzuela MD Anesthesia: local Estimated blood loss (mL): 5 Operative findings:: Lesions excised in toto with 1 mm margin Operative note:: After informed consent was obtained the patient was taken to the procedure room. Her right arm was prepped and draped in a sterile fashion. After infiltration local anesthetic an elliptical incision was made around each lesion. Both lesions were excised in toto and passed off for pathologic evaluation. Thermal cautery was utilized to achieve hemostasis. Skin was reapproximated with combination of 4-0 nylon and 3-0 nylon. Dressings were applied and the patient was discharged in stable condition. Condition: stable Disposition: no change Specimens:: Right arm skin lesions Complications:: No immediate
[2021-11-07 11:40] VITALS: BP 109/66; PULSE 66; RESP 16; O2SAT 96
== END 2021-11-07 11:50 | disposition home or self-care (01) ==
LOC: OUTP 09:18
PROVIDERS: PCP Family Medicine; Visit Provider Surgery
PROC: (CPT 11106; principal; 2021-11-07 10:30)
DX: L82.0 Inflamed seborrheic keratosis (principal); F41.9 Anxiety disorder, unspecified; F32.A Depression, unspecified; Z87.19 Personal history of other diseases of the digestive system; Z86.14 Personal history of Methicillin resistant Staphylococcus aureus infection; Z90.49 Acquired absence of other specified parts of digestive tract; Z83.3 Family history of diabetes mellitus; Z82.49 Family history of ischemic heart disease and other diseases of the circulatory system; Z82.3 Family history of stroke; Z80.9 Family history of malignant neoplasm, unspecified
CPT/HCPCS: 11106; 11107

== ENCOUNTER 2022-02-13 19:05 | Emergency (ER) | payer MEDICAID, SELFPAY ==
[2022-02-13 19:21] VITALS: BP 109/46; PULSE 56; O2SAT 94
[2022-02-13 19:26] VITALS: BP 109/46; PULSE 58; RESP 18; TEMP 36.7; O2SAT 99; BMI 49.3
[2022-02-13 19:31] VITALS: BP 92/44; PULSE 54; O2SAT 93
[2022-02-13 19:36] LABS: Microscopic, Urine URINE MICROSCOPIC (MICROSCOPIC)
--- NOTE | 2022-02-13 19:36 | XR_ITS ---
PROCEDURE INFORMATION: Exam: XR Left Hip Exam date and time: 02/13/2022 7:39 PM Age: 56 years old Clinical indication: Hip pain; Left hip; Additional info: Left hip pain no injury TECHNIQUE: Imaging protocol: XR Left hip. Views: 2 or 3 views hip with pelvis when performed. COMPARISON: CT ABDOMEN PELVIS W CON 10/20/2019 1:06 PM FINDINGS: Bones/joints: No acute fracture. Soft tissues: Unremarkable. IMPRESSION: No acute findings.
[2022-02-13 19:53] LABS: Appearance,Urine CLEAR (Clear); Bilirubin,Urine Negative (Negative); Blood, Urine Negative (Negative); Color,Urine YELLOW (Yellow); Glucose,Urine (UA) Negative (Negative); Ketones,Urine TRACE (Negative); Leukocyte Esterase,Urine Negative (Negative); Nitrate,Urine Negative (Negative); Protein,Urine Negative (Negative)
[2022-02-13 19:56] LABS: Squamous Epithelial Cell,Urine 20-50 #/hpf (0-5)
[2022-02-13 20:16] LABS: Basophils # 0.2 K/mm3 (0-0.2); Eosinophils # 0.2 K/mm3 (0.0-0.4); Eosinophils % 1.3 % (0.1-12.0); Hematocrit 50.1 % (37.0-47.0); Hemoglobin 16.7 g/dL (12.2-16.2); Lymphocytes % 13.1 % (10-50); Mean Corpuscular HGB Conc 33.2 g/dL (31.8-35.4); Mean Corpuscular Hemoglobin 28.8 pg (27.0-31.2); Mean Corpuscular Volume 86.7 fl (81-99); Mean Platelet Volume 8.6 fl (7.4-10.4); Monocytes # 0.7 K/mm3 (0.1-1.0); Monocytes % 4.8 % (1.7-9.3); Neutrophils # 12.2 K/mm3 (1.8-7.8); Neutrophils % 79.7 % (37.0-80.0); Platelet Count 284 K/mm3 (142-424); Red Blood Count 5.78 M/mm3 (4.20-5.40); Red Cell Distribution Width 15.4 % (11.5-17.5); White Blood Count 15.3 K/mm3 (4.8-10.8)
[2022-02-13 20:25] LABS: Chloride 105 mmol/L (98-107); Sodium 138 mmol/L (136-145)
[2022-02-13 20:27] LABS: Blood Urea Nitrogen 11 mg/dl (7-17); Creatinine Clearance Estimated 101 mL/min (50-200); Estimated Glomerular Filt Rate 103 ml/min (>60); GFR (African American) 125 ML/MIN (>60)
[2022-02-13 20:28] LABS: Alanine Aminotransferase 30 U/L (12-78); Albumin Level 3.8 g/dl (3.5-5.0); Alkaline Phosphatase 127 U/L (38-126); Aspartate Amino Transferase 39 U/L (14-36); Bilirubin,Total 0.7 mg/dl (0.2-1.3); Calcium 8.2 mg/dl (8.4-10.2); Carbon Dioxide 27 mmol/L (22.0-30.0); Globulin 3.8 g/dL (1.3-3.2); Glucose 101 mg/dl (74-100); Total Protein,Serum 7.6 g/dl (6.3-8.2)
[2022-02-13 20:30] LABS: MANUAL DIFFERENTIAL MANUAL DIFFERENTIAL (MANUAL DIFF)
[2022-02-13 20:49] LABS: Procalcitonin 0.073 ng/mL (0.0-2.0)
[2022-02-13 21:41] LABS: Erythrocyte Sedimentation Rate 13 mm/hr (0-30)
[2022-02-13 21:45] LABS: Lymphocytes % 8 % (10-50); Monocytes % 5 % (2-9); Neutrophils % 84 % (42-76); Nucleated Red Blood Cells 1; Total Cells Counted 100
[2022-02-13 21:46] LABS: Platelet Estimate Normal
--- NOTE | 2022-02-13 21:48 | HMH.EDGENADL ---
ED Disposition Clinical Impression: Lumbar radicular pain, Hip pain, left Disposition: Home, Self-Care Condition on Discharge: Good Instructions: DI for Lumbar Radiculopathy Additional Instructions: use meds and call pcp for follow up Prescriptions: predniSONE [Prednisone 20mg Tab] 20 mg PO BID #10 tab Transmission Status: Pending to [facility]/pharmacy #[id number] Referrals: Mario Gibson MD [Primary Care Provider] - - Critical Care Critical Care Time: No Attestation: On 02/13/22, the high probability of a clinically significant, sudden or life threatening deterioration of the following system(s) required my full and direct attention, intervention and personal management. The time I documented below is in addition to time spent performing reported procedures but includes the following listed in this critical care notation. Medical Decision Making - Medical Records Medical records reviewed: Yes: I reviewed the patient's medical records. - Edwar Inquiry Pt receiving controlled substance: No Vital Signs: 02/13/22 19:21 02/13/22 19:26 02/13/22 19:31 Temperature 98.1 F Temperature Source Oral Pulse Rate 56 L 54 L Pulse Rate [Apical] 58 L Respiratory Rate 18 Blood Pressure 109/46 L 92/44 L Blood Pressure [Right Arm] 109/46 L Blood Pressure Mean [Right Arm] 67 Blood Pressure Source [Right Arm] Automatic Cuff Blood Pressure Position [Right Arm] Sitting 02 Sat by Pulse Oximetry 94 L 99 93 L Oxygen Delivery Method Room Air Room Air Room Air - Lab Data Lab results reviewed: Yes: I reviewed the patient's lab results. Lab Results 02/13/22 19:20: Urine Color Yellow, Urine Appearance Clear, Urine pH 6.0, Ur Specific [place] 1.020, Urine Protein Negative, Urine Glucose (UA) Negative, Urine Ketones Trace, Urine Blood Negative, Urine Nitrate Negative, Urine Bilirubin Negative, Urine Urobilinogen 4.0, Ur Leukocyte Esterase Negative, Ur Squamous Epith Cells 20-50 02/13/22 20:00: WBC 15.3 H, RBC 5.78 H, Hgb 16.7 H, Hct 50.1 H, MCV 86.7, MCH 28.8, MCHC 33.2, RDW 15.4, Plt Count 284, MPV 8.6, Neut % (Auto) 79.7, Lymph % (Auto) 13.1, [place] % (Auto) 4.8, Eos % (Auto) 1.3, Baso % (Auto) 1.0, Neut # (Auto) 12.2 H, Lymph # (Auto) 2.0, [place] # (Auto) 0.7, Eos # (Auto) 0.2, Baso # (Auto) 0.2, Total Counted 100, Neutrophils % (Manual) 84 H, Lymphocytes % (Manual) 8 L, Monocytes % (Manual) 5, Basophils % (Manual) 3.0 H, Nucleated RBCs 1, Platelet Estimate Normal, ESR 13 02/13/22 20:00: Sodium 138, Potassium 4.0, Chloride 105, Carbon Dioxide 27, Anion Gap 10.0, BUN 11, Creatinine 0.60, Estimated Creat Clear 101, Estimated GFR 103, Est GFR ( Amer) 125, Glucose 101 H, Calcium 8.2 L, Total Bilirubin 0.7, AST 39 H, ALT 30, Alkaline Phosphatase 127 H, C-Reactive Protein 31.0 H, Total Protein 7.6, Albumin 3.8, Globulin 3.8 H, Albumin/Globulin Ratio 1.0 L, Procalcitonin 0.073 Result diagrams: 02/13/22 20:00 02/13/22 20:00 Orders (Tests/Meds): ED MEDICATIONS Generic Name Dose Route Start Last Admin Trade Name Freq PRN Reason Stop Dose Admin Sodium Chloride 1,000 mls @ 999 mls/hr 02/13/22 19:45 02/13/22 20:08 Sod Chlor 0.9% 1000ml Bag IV 02/13/22 20:45 Not Given .Q1H1M JAVIER Lactated Ringer's 1,000 mls @ 999 mls/hr 02/13/22 20:15 02/13/22 20:09 Lactated Ringer's 1000 Ml Bag IV 02/13/22 21:15 999 mls/hr .Q1H1M JAVIER Administration Discontinued Medications Generic Name Dose Route Start Last Admin Trade Name Freq PRN Reason Stop Dose Admin Ketorolac Tromethamine 30 mg 02/13/22 19:35 02/13/22 20:08 Ketorolac 30mg/Ml Vial IV 02/13/22 19:36 30 mg ONCE ONE Administration Methylprednisolone Sodium Succinate 125 mg 02/13/22 19:35 02/13/22 20:08 Methylprednisolone Sod Succ 125mg Vial IV 02/13/22 19:36 125 mg ONCE ONE Administration Morphine Sulfate 4 mg 02/13/22 21:55 Morphine 4mg/Ml Syringe IV 02/13/22 21:56 ONCE ONE Ondansetron HCl 4 mg 02/13/22 21:55 Ond
[2022-02-13 22:17] VITALS: BP 92/44; PULSE 55; RESP 18; TEMP 36.8; O2SAT 99
== END 2022-02-13 22:19 | disposition home or self-care (01) ==
PROVIDERS: Emergency Provider Emergency Medicine; PCP Family Medicine
DX: M54.16 Radiculopathy, lumbar region (principal); M25.552 Pain in left hip; G89.29 Other chronic pain; R01.1 Cardiac murmur, unspecified; L98.499 Non-pressure chronic ulcer of skin of other sites with unspecified severity; E66.9 Obesity, unspecified; F32.A Depression, unspecified; F41.9 Anxiety disorder, unspecified; F17.210 Nicotine dependence, cigarettes, uncomplicated; Z79.1 Long term (current) use of non-steroidal anti-inflammatories (NSAID); Z79.899 Other long term (current) drug therapy; Z68.42 Body mass index [BMI] 45.0-49.9, adult; Z82.49 Family history of ischemic heart disease and other diseases of the circulatory system; Z80.9 Family history of malignant neoplasm, unspecified; Z83.3 Family history of diabetes mellitus
CPT/HCPCS: 73502; 80053; 81001; 84145; 85007; 85025; 85651; 86140; 96361; 96365; 96374; 96375; 99285; J2405

== ENCOUNTER 2022-04-24 09:22 | Emergency (ER) | payer MEDICAID, SELFPAY ==
[2022-04-24] VITALS (11 sets, daily range): BP systolic 89–125; BP diastolic 49–73; PULSE 69–84; RESP 16–20; TEMP 37; O2SAT 94–97; BMI 47.9
--- NOTE | 2022-04-24 09:43 | HMH.EDGENADL ---
ED Disposition Clinical Impression: Left leg pain, Left hip pain, Lumbar radicular pain Disposition: Home, Self-Care Condition on Discharge: Good Instructions: DI for Acute Pain -- Adult Prescriptions: Lidocaine [Lidocaine 5% patch] 1 patch TP Q24H PRN #5 patch PRN Reason: Muscle Pain Transmission Status: Pending to [facility]/pharmacy #[id number] Referrals: Mario Gibson MD [Primary Care Provider] - - Critical Care Critical Care Time: No Attestation: On 04/24/22, the high probability of a clinically significant, sudden or life threatening deterioration of the following system(s) required my full and direct attention, intervention and personal management. The time I documented below is in addition to time spent performing reported procedures but includes the following listed in this critical care notation. Medical Decision Making - Edwar Inquiry Pt receiving controlled substance: Yes Edwar was queried for this patient: No Risks and benefits of using a controlled substance: were discussed with pt by me Vital Signs: 04/24/22 09:24 04/24/22 09:30 04/24/22 09:48 Temperature 98.6 F Temperature Source Oral Pulse Rate 83 78 Pulse Rate [Left Radial] 84 Respiratory Rate 18 20 Blood Pressure 121/68 Blood Pressure [Right Arm] 115/73 Blood Pressure Mean 78 Blood Pressure Mean [Right Arm] 87 Blood Pressure Source [Right Arm] Automatic Cuff Blood Pressure Position [Right Arm] Sitting 02 Sat by Pulse Oximetry 95 95 95 Oxygen Delivery Method Room Air 04/24/22 10:18 04/24/22 10:49 04/24/22 11:19 Temperature Temperature Source Pulse Rate 75 79 76 Pulse Rate [Left Radial] Respiratory Rate 16 16 Blood Pressure 125/64 120/68 105/62 L Blood Pressure [Right Arm] Blood Pressure Mean 73 85 76 Blood Pressure Mean [Right Arm] Blood Pressure Source [Right Arm] Blood Pressure Position [Right Arm] 02 Sat by Pulse Oximetry 94 L 95 95 Oxygen Delivery Method 04/24/22 11:48 Temperature Temperature Source Pulse Rate 69 Pulse Rate [Left Radial] Respiratory Rate 16 Blood Pressure 109/62 L Blood Pressure [Right Arm] Blood Pressure Mean 79 Blood Pressure Mean [Right Arm] Blood Pressure Source [Right Arm] Blood Pressure Position [Right Arm] 02 Sat by Pulse Oximetry 96 Oxygen Delivery Method - Lab Data Lab Results 04/24/22 09:55: WBC 14.8 H, RBC 5.30, Hgb 15.6, Hct 46.4, MCV 87.5, MCH 29.4, MCHC 33.6, RDW 15.1, Plt Count 245, MPV 7.7, Neut % (Auto) 78.5, Lymph % (Auto) 13.7, [place] % (Auto) 6.0, Eos % (Auto) 0.5, Baso % (Auto) 1.4, Neut # (Auto) 11.6 H, Lymph # (Auto) 2.0, [place] # (Auto) 0.9, Eos # (Auto) 0.1, Baso # (Auto) 0.2 04/24/22 09:55: D-Dimer 0.80 H 04/24/22 09:55: Sodium 137, Potassium 3.6, Chloride 104, Carbon Dioxide 28, Anion Gap 8.6, BUN 8, Creatinine 0.50 L, Estimated Creat Clear 125, Estimated GFR 127, Est GFR ( Amer) 154, Glucose 175 H, Calcium 8.6, Total Bilirubin 0.6, AST 23, ALT 22, Alkaline Phosphatase 109, Total Protein 7.0, Albumin 3.5, Globulin 3.5 H, Albumin/Globulin Ratio 1.0 L Result diagrams: 04/24/22 09:55 04/24/22 09:55 Orders (Tests/Meds): ED MEDICATIONS Generic Name Dose Route Start Last Admin Trade Name Freq PRN Reason Stop Dose Admin Lidocaine 1 each 04/24/22 09:45 04/24/22 09:58 Lidocaine 5% Transdermal Patch TP 05/24/22 09:44 1 each Q24H JAVIER Administration Morphine Sulfate 4 mg 04/24/22 09:40 04/24/22 09:58 Morphine 10mg/Ml Syringe IV 05/24/22 09:39 4 mg Q6HP PRN Administration Moderate to Severe Pain Discontinued Medications Generic Name Dose Route Start Last Admin Trade Name Freq PRN Reason Stop Dose Admin Acetaminophen 1,000 mg 04/24/22 09:40 04/24/22 09:58 Acetaminophen 500mg Tab PO 04/24/22 09:41 1,000 mg ONCE ONE Administration Ketorolac Tromethamine 15 mg 04/24/22 09:40 04/24/22 09:58 Ketorolac 30mg/Ml Vial IV 04/24/22 09:41 15 mg ONCE ONE Administration
[2022-04-24 10:07] LABS: Basophils # 0.2 K/mm3 (0-0.2); Basophils % 1.4 % (0.1-2.0); Eosinophils # 0.1 K/mm3 (0.0-0.4); Eosinophils % 0.5 % (0.1-12.0); Hematocrit 46.4 % (37.0-47.0); Hemoglobin 15.6 g/dL (12.2-16.2); Lymphocytes % 13.7 % (10-50); Mean Corpuscular HGB Conc 33.6 g/dL (31.8-35.4); Mean Corpuscular Hemoglobin 29.4 pg (27.0-31.2); Mean Corpuscular Volume 87.5 fl (81-99); Mean Platelet Volume 7.7 fl (7.4-10.4); Monocytes # 0.9 K/mm3 (0.1-1.0); Neutrophils # 11.6 K/mm3 (1.8-7.8); Neutrophils % 78.5 % (37.0-80.0); Platelet Count 245 K/mm3 (142-424); Red Cell Distribution Width 15.1 % (11.5-17.5); White Blood Count 14.8 K/mm3 (4.8-10.8)
[2022-04-24 10:16] LABS: Alanine Aminotransferase 22 U/L (12-78); Albumin Level 3.5 g/dl (3.5-5.0); Alkaline Phosphatase 109 U/L (38-126); Anion Gap 8.6 mEq/L (5-15); Aspartate Amino Transferase 23 U/L (14-36); Bilirubin,Total 0.6 mg/dl (0.2-1.3); Blood Urea Nitrogen 8 mg/dl (7-17); Calcium 8.6 mg/dl (8.4-10.2); Carbon Dioxide 28 mmol/L (22.0-30.0); Chloride 104 mmol/L (98-107); Creatinine Clearance Estimated 125 mL/min (50-200); Estimated Glomerular Filt Rate 127 ml/min (>60); GFR (African American) 154 ML/MIN (>60); Globulin 3.5 g/dL (1.3-3.2); Glucose 175 mg/dl (74-100); Potassium 3.6 mmoL/L (3.5-5.1); Sodium 137 mmol/L (136-145)
--- NOTE | 2022-04-24 10:46 | CA_ITS ---
FINAL REPORT CLINICAL HISTORY: LLE PAIN,EDEMA,REDNESS RT ANKLE/FOOT FINDINGS: DUPLEX VENOUS SONOGRAPHY OF THE LEFT LOWER EXTREMITY Multiple transverse and longitudinal scans were performed of the femoropopliteal deep venous system, with augmentation and compression maneuvers. Normal phasic flow was noted in the visualized deep venous system. No intraluminal increased echogenicity is noted to suggest thrombus. There is normal compression and augmentation of the venous structures. No abnormal venous collaterals are seen. IMPRESSION: No evidence of deep venous thrombosis of the left lower extremity. Reviewed, Interpreted and Dictated by Saranya Carmona MD Transcribed by Trisha Sanford Authenticated by Saranya Carmona MD on 04/24/2022 11:37:19 AM [facility]
--- NOTE | 2022-04-24 11:05 | PC.NURSE ---
Radiology in room with Doppler.
--- NOTE | 2022-04-24 11:43 | PC.NURSE ---
aware that venous doppler is negative for pt
--- NOTE | 2022-04-24 12:28 | PC.NURSE ---
pt up to restroom used a chair as a walker
== END 2022-04-24 13:01 | disposition home or self-care (01) ==
PROVIDERS: Emergency Provider Student in an Organized Health Care Education/Training Program; PCP Family Medicine
DX: M25.552 Pain in left hip (principal); M54.16 Radiculopathy, lumbar region; M79.605 Pain in left leg; R26.9 Unspecified abnormalities of gait and mobility; F41.9 Anxiety disorder, unspecified; F32.A Depression, unspecified; Z87.11 Personal history of peptic ulcer disease; Z72.0 Tobacco use; Z80.9 Family history of malignant neoplasm, unspecified; Z82.3 Family history of stroke; Z82.49 Family history of ischemic heart disease and other diseases of the circulatory system
CPT/HCPCS: 80053; 85025; 85378; 93971; 96374; 96375; 99284

== ENCOUNTER → 2023-06-23 23:43 | Outpatient (CLI) | payer MEDICAID, SELFPAY ==
[2023-06-23 18:37] LABS: Alanine Aminotransferase 32 U/L (12-78); Albumin Level 3.6 g/dl (3.5-5.0); Alkaline Phosphatase 122 U/L (38-126); Anion Gap 13.1 mEq/L (5-15); Aspartate Amino Transferase 37 U/L (14-36); Basophils # 0.1 K/mm3 (0-0.2); Basophils % 0.8 % (0.1-2.0); Bilirubin,Total 0.4 mg/dl (0.2-1.3); Blood Urea Nitrogen 10 mg/dl (7-17); Calcium 8.9 mg/dl (8.4-10.2); Carbon Dioxide 27 mmol/L (22.0-30.0); Chloride 107 mmol/L (98-107); Chol/HDL Ratio 5.4 (1-3.5); Cholesterol 178 mg/dl (140-200); Eosinophils # 0.2 K/mm3 (0.0-0.4); Eosinophils % 2.2 % (0.1-12.0); Estimated Glomerular Filt Rate 126 ml/min (>60); GFR (African American) 153 ML/MIN (>60); Globulin 3.6 g/dL (1.3-3.2); Glucose 86 mg/dl (74-100); HDL Cholesterol 33 mg/dl (40-60); Hematocrit 50.6 % (37.0-47.0); Hemoglobin 15.8 g/dL (12.2-16.2); Lymphocytes # 2.4 K/mm3 (0.7-4.5); Mean Corpuscular HGB Conc 31.2 g/dL (31.8-35.4); Mean Corpuscular Hemoglobin 28.3 pg (27.0-31.2); Mean Corpuscular Volume 90.9 fl (81-99); Mean Platelet Volume 10.2 fl (7.4-10.4); Monocytes # 0.9 K/mm3 (0.1-1.0); Monocytes % 7.9 % (1.7-9.3); Neutrophils # 7.3 K/mm3 (1.8-7.8); Neutrophils % 67.1 % (37.0-80.0); Platelet Count 240 K/mm3 (142-424); Potassium 4.1 mmoL/L (3.5-5.1); Red Blood Count 5.56 M/mm3 (4.20-5.40); Red Cell Distribution Width 14.8 % (11.5-17.5); Sodium 143 mmol/L (136-145); Total Protein,Serum 7.2 g/dl (6.3-8.2); Triglycerides 108 mg/dl (30-150); VLDL Cholesterol 22 mg/dL (0-40); White Blood Count 10.9 K/mm3 (4.8-10.8)
[2023-06-23 18:47] LABS: Direct LDL Cholesterol 115.46 mg/dL (100-129)
[2023-06-23 19:05] LABS: Thyroid Stimulating Hormone 0.69 uIU/mL (0.465-4.68)
[2023-06-23 20:13] LABS: Hemoglobin A1C 6.4 % (4.0-6.0)
== END ==
PROVIDERS: PCP Family Medicine; Visit Provider Family Medicine
DX: E11.9 Type 2 diabetes mellitus without complications (principal); Z79.84 Long term (current) use of oral hypoglycemic drugs; Z79.899 Other long term (current) drug therapy
CPT/HCPCS: 80053; 80061; 83036; 84443; 85025

== ENCOUNTER → 2023-07-29 10:43 | Outpatient (CLI) | payer MEDICAID, SELFPAY ==
[2023-07-29 11:54] LABS: Basophils # 0.1 K/mm3 (0-0.2); Basophils % 0.6 % (0.1-2.0); Eosinophils # 0.2 K/mm3 (0.0-0.4); Eosinophils % 1.8 % (0.1-12.0); Hematocrit 50.2 % (37.0-47.0); Hemoglobin 16.4 g/dL (12.2-16.2); Lymphocytes % 26.8 % (10-50); Mean Corpuscular HGB Conc 32.6 g/dL (31.8-35.4); Mean Corpuscular Hemoglobin 29.4 pg (27.0-31.2); Mean Platelet Volume 8.1 fl (7.4-10.4); Monocytes # 0.6 K/mm3 (0.1-1.0); Monocytes % 4.9 % (1.7-9.3); Neutrophils # 7.5 K/mm3 (1.8-7.8); Neutrophils % 65.8 % (37.0-80.0); Platelet Count 211 K/mm3 (142-424); Red Blood Count 5.58 M/mm3 (4.20-5.40); Red Cell Distribution Width 14.4 % (11.5-17.5); White Blood Count 11.4 K/mm3 (4.8-10.8)
[2023-07-29 12:10] LABS: INR 1.04 (0.9-1.1); Prothrombin Time 11.2 seconds (10.1-12.5)
[2023-07-29 13:01] LABS: Alanine Aminotransferase 29 U/L (12-78); Albumin Level 3.6 g/dl (3.5-5.0); Alkaline Phosphatase 99 U/L (38-126); Aspartate Amino Transferase 40 U/L (14-36); Bilirubin,Direct 0.1 mg/dl (0.0-0.4); Bilirubin,Indirect 0.6 mg/dL (0.0-0.9); Bilirubin,Total 0.7 mg/dl (0.2-1.3); Bilirubin,Unconjugated 0.6 mg/dL (0.0-1.1); Blood Urea Nitrogen 9 mg/dl (7-17); Carbon Dioxide 28 mmol/L (22.0-30.0); Chloride 105 mmol/L (98-107); Chol/HDL Ratio 5.6 (1-3.5); Cholesterol 158 mg/dl (140-200); Estimated Glomerular Filt Rate 102 ml/min (>60); GFR (African American) 124 ML/MIN (>60); Glucose 71 mg/dl (74-100); HDL Cholesterol 28 mg/dl (40-60); Sodium 142 mmol/L (136-145); Total Protein,Serum 7.5 g/dl (6.3-8.2); Triglycerides 95 mg/dl (30-150); VLDL Cholesterol 19 mg/dL (0-40)
[2023-07-29 13:09] LABS: NT Pro Brain Natriuretic Pep. 54.4 pg/mL (0-125)
[2023-07-29 13:11] LABS: Direct LDL Cholesterol 108.15 mg/dL (100-129)
[2023-07-29 13:17] LABS: Free T4 (Free Thyroxine) 1.28 ng/dl (0.78-2.19)
[2023-07-29 13:31] LABS: Thyroid Stimulating Hormone 1.41 uIU/mL (0.465-4.68)
== END ==
PROVIDERS: PCP Family Medicine; Visit Provider Internal Medicine
DX: R00.2 Palpitations (principal); R06.00 Dyspnea, unspecified; R07.9 Chest pain, unspecified; R42 Dizziness and giddiness; R60.0 Localized edema; R94.31 Abnormal electrocardiogram [ECG] [EKG]; R79.1 Abnormal coagulation profile
CPT/HCPCS: 36415; 80048; 80061; 80076; 83735; 83880; 84439; 84443; 85025; 85610; 93270

== ENCOUNTER → 2023-08-11 11:04 | Outpatient (CLI) | payer MEDICAID, SELFPAY ==
--- NOTE | 2023-08-11 | CA_ITS ---
APPROVED REPORT Exam: Pharmacologic Technologist: Nena Kumar Ht: 5 ft 7 in Wt: 292 lbs BSA: 2.38 m2 HR: 64 bpm BP: 101/52 mmHg Rhythm: NSR Indications: Chest pain, abnormal ekg, dyspnea Medical History Medications: Lidocaine,,,,, Metformin,,,,, Losartan,,,,, Pantoprazole,,,,, Ibuprofen,,,,, Potassium,,,,, Clobetasol,,,,, SeMaglutide,,,,, Hydrocodone-Acetaminophen,,,,, Furosemide,,,,, Stress Test Details Test: LEXISCAN HR Resting HR: 61 bpm Max Heart Rate (APMHR): 161 bpm Max HR Achieved: 92 bpm Target HR (85% APMHR): 137 bpm % of APMHR: 57 Recovery HR: 79 bpm BP Resting BP: 101.0/52.0 mmHg Max BP: 110.0/51.0 mmHg Recovery BP: 102.0/53.0 mmHg ECG Resting ECG: Sinus arrhythmia Stress ECG: No significant ST changes Arrhythmia: None Clinical Exercise duration: 04:07 min Highest Stage Achieved: Exercise capacity: 1.0 METs Stress ECG Conclusion Symptoms: Mild chest pressure, shortness of air and head discomfort. Arrhythmias/Ectopy: None ST-T Changes: No significant ST changes Conclusion: Unremarkable Lexiscan stress. Myoview images reported separately. Test Summary REST . . . . . . . Resting REST 15:57 . . 61 . 101/ 52 . . Stage 1 . . . . . . . Myoview Injected Stage 1 01:00 . . 81 . . . . Stage 2 01:00 . . 91 . 109/ 46 . . Stage 3 01:00 . . 89 . . . . Stage 4 01:00 . . 87 . 98/ 46 . . Stage 4 01:07 . . 87 . 102/ 52 . Stop exercise at 04:07 RECOVERY 01:00 . . 80 . . . . RECOVERY 02:00 . . 80 . 110/ 51 . . RECOVERY 03:00 . . 77 . 110/ 51 . . RECOVERY 03:18 . . 81 . 102/ 53 . . Electronically signed by : Sona Garcia MD 08/21/2023 19:22:54
--- NOTE | 2023-08-11 11:04 | NM_ITS ---
APPROVED REPORT Exam: Nuclear Stress Test Indication: HTN, DM, HYPERLIPIDEMIA, TOB USE, FM HX, C.P., SOB, PALPITATIONS, FATIGUE, ABN EKG Patient Location: Outpatient Stress Tech: Nena Kumar CO Tech:Emmy Srivastava, ARRT RT(R)(N) Ht: 5 ft 7 in Wt: 292 lbs Bra Size: B HR: 61 bpm BP: 101/52 mmHg BSA: 2.38 m2 TID: 1.24 BMI: 45.7 History: HTN, DM, HYPERLIPIDEMIA, TOB USE, FM HX, C.P., SOB, PALPITATIONS, FATIGUE, ABN EKG Procedure: Patient received 0.4 mg of intravenous Lexiscan, resting heart rate 61 bpm, resting blood pressure 101/52 mmHg, with Lexiscan maximum heart rate achieved was 91 bpm which is % of the maximum predicted heart rate and blood pressure was 109/46 mmHg. With Lexiscan, patient denied any complaint of chest pain. Cardiac Stress and Resting SPECT Images: Cardiac Stress and Resting SPECT images were obtained using technetium 99m Myoview 31.0 mCi stress and 9.85 mCi at rest. Raw imaging demonstrates significant soft tissue overlap with the cardiac borders. This may affect the diagnostic interpretation of the study findings. Resting and stress imaging in both supine and prone positions demonstrate no definite evidence of focal fixed or reversible perfusion defects. There is increased transient ischemic dilatation ratio (TID 1.24), suggestive of possible multivessel disease or balanced ischemia. Gated imaging demonstrates normal global LV systolic function. LVEF is calculated at 58% Conclusion: Soft tissue attenuation is present. No definite evidence of focal fixed or reversible perfusion defects. There is increased transient ischemic dilatation ratio (TID 1.24), suggestive of possible multivessel disease or balanced ischemia. Gated imaging demonstrates normal global LV systolic function. LVEF is calculated at 58% Electronically signed by : Sona Garcia MD 08/21/2023 19:25:24
== END ==
PROVIDERS: PCP Family Medicine; Visit Provider Internal Medicine
DX: R06.00 Dyspnea, unspecified (principal); R07.9 Chest pain, unspecified; R00.2 Palpitations; R42 Dizziness and giddiness; R60.0 Localized edema; R94.31 Abnormal electrocardiogram [ECG] [EKG]
CPT/HCPCS: 78452; 93017; A9502; J2785

== ENCOUNTER 2023-09-08 08:17 | Day surgery (SDC) | payer MEDICAID, SELFPAY ==
[2023-09-08] VITALS (12 sets, daily range): BP systolic 111–156; BP diastolic 62–90; PULSE 66–79; RESP 16–20; TEMP 36.9; O2SAT 91–100; BMI 44.3
--- NOTE | 2023-09-08 07:06 | IR_ITS ---
APPROVED REPORT Patient Location: Outpatient [employer] Assembler: STEVE Watson RT (R) PROCEDURES Left heart catheterization Left ventriculogram Selective coronary gram INDICATION Angina pectoris , Risk factors for coronary disease, Abnormal Myoview, Informed consent was obtained prior to the procedure. COMPLICATIONS NONE Estimated Blood Loss: LESS THAN 10 ML TECHNIQUE One percent lidocaine used to anesthetize the right anterior aspect of the wrist. The right radial artery was accessed via the Seldinger technique. A 6 Micronesian sheath was placed in the right radial artery. 2.5 mg of Verapamil, 800 mcg of nitroglycerin, 1mg Lidocaine and 5000 U Heparin were given through the arterial sheath. The papa catheter was also used to perform left heart catheterization, left ventriculogram and selective coronary angiogram. At the end of the procedure the sheath was removed good hemostasis was achieved using Traclet band, patient was transferred to the postop holding area in stable condition. ANGIOGRAPHIC RESULTS The left main artery Normal The left anterior descending artery Has proximal 10% luminal irregularities with a mid vessel 30% concentric stenosis The circumflex artery Nondominant with 10% diffuse luminal irregularities The right coronary artery Large dominant with diffuse 10 to 20% luminal irregularities The BARBER ventriculogram reveals Hyperdynamic at 75% The left ventricular end-diastolic pressure 10 to 15 mmHg IMPRESSION Mild nonflow limiting coronary disease Hyperdynamic ventricle Normal LVEDP PLAN 1. Medical management with risk factor modification Electronically signed by : Gavin Howe MD 09/08/2023 11:06:25
[2023-09-08 08:57] LABS: Basophils # 0.1 K/mm3 (0-0.2); Basophils % 0.6 % (0.1-2.0); Eosinophils # 0.2 K/mm3 (0.0-0.4); Eosinophils % 0.9 % (0.1-12.0); Hematocrit 47.8 % (37.0-47.0); Hemoglobin 16.3 g/dL (12.2-16.2); Lymphocytes # 2.4 K/mm3 (0.7-4.5); Lymphocytes % 14.2 % (10-50); Mean Corpuscular HGB Conc 34.2 g/dL (31.8-35.4); Mean Corpuscular Hemoglobin 30.7 pg (27.0-31.2); Mean Corpuscular Volume 89.8 fl (81-99); Mean Platelet Volume 8.1 fl (7.4-10.4); Monocytes # 0.9 K/mm3 (0.1-1.0); Monocytes % 5.2 % (1.7-9.3); Neutrophils % 79.1 % (37.0-80.0); Platelet Count 192 K/mm3 (142-424); Red Blood Count 5.32 M/mm3 (4.20-5.40); Red Cell Distribution Width 14.5 % (11.5-17.5); White Blood Count 16.5 K/mm3 (4.8-10.8)
[2023-09-08 08:58] LABS: MANUAL DIFFERENTIAL MANUAL DIFFERENTIAL (MANUAL DIFF)
[2023-09-08 09:11] LABS: Anion Gap 8.9 mEq/L (5-15); Blood Urea Nitrogen 9 mg/dl (7-17); Calcium 8.6 mg/dl (8.4-10.2); Carbon Dioxide 29 mmol/L (22.0-30.0); Chloride 104 mmol/L (98-107); Creatinine Clearance Estimated 98 mL/min (50-200); Estimated Glomerular Filt Rate 102 ml/min (>60); GFR (African American) 124 ML/MIN (>60); Glucose 105 mg/dl (74-100); Potassium 3.9 mmoL/L (3.5-5.1); Sodium 138 mmol/L (136-145)
[2023-09-08 09:20] LABS: Lymphocytes % 22 % (10-50); Monocytes % 5 % (2-9); Neutrophils % 73 % (42-76); Platelet Estimate Normal; RBC Morphology Normal; Total Cells Counted 100
== END 2023-09-08 13:56 | disposition home or self-care (01) ==
PROVIDERS: PCP Family Medicine; Visit Provider Internal Medicine
DX: I25.118 Atherosclerotic heart disease of native coronary artery with other forms of angina pectoris (principal); F17.210 Nicotine dependence, cigarettes, uncomplicated; Z79.899 Other long term (current) drug therapy; Z79.84 Long term (current) use of oral hypoglycemic drugs; E11.9 Type 2 diabetes mellitus without complications; I10 Essential (primary) hypertension; K75.81 Nonalcoholic steatohepatitis (NASH)
CPT/HCPCS: 80048; 85007; 85025; 93458; 99152; C1725; C1769; J1644; Q9967

== ENCOUNTER → 2023-10-05 15:15 | Outpatient (CLI) | payer MEDICAID, SELFPAY ==
--- NOTE | 2023-10-05 15:18 | MM_ITS ---
PROCEDURE INFORMATION: Exam: MG Bilateral Screening 3D Mammography Exam date and time: 10/05/2023 3:18 PM Age: 58 years old Clinical indication: Screening examination; Family history of breast cancer in aunt TECHNIQUE: Imaging protocol: Bilateral Screening tomosynthesis and 2D mammography including computer-aided detection (CAD) when performed. COMPARISON: No relevant prior studies available. FINDINGS: MAMMOGRAPHY: Breast composition: There are scattered areas of fibroglandular density. Mass: None. Architectural distortion: None. Calcifications: No suspicious calcifications. Asymmetric density: None. Skin thickening: None. Axillary adenopathy: None. IMPRESSION: No mammographic evidence of malignancy. Annual screening is recommended unless otherwise clinically indicated. ASSESSMENT: BI-RADS Category 1: Negative
== END ==
PROVIDERS: PCP Family Medicine; Visit Provider Family Medicine
DX: Z12.31 Encounter for screening mammogram for malignant neoplasm of breast (principal)
CPT/HCPCS: 77063; 77067

== ENCOUNTER 2023-12-06 23:18 | Outpatient (CLI) | payer MEDICARE, MEDICAID, SELFPAY ==
[2023-12-06 19:07] LABS: Amphetamine/Metha Screen,Urine Negative ng/ml (<1000); Barbiturates Screen,Urine Negative ng/ml (<200); Benzodiazepines Screen,Urine Negative ng/ml (<200); Cannabinoid Screen,Urine Negative ng/ml (<50); Cocaine Screen,Urine Negative ng/ml (<300); Methadone Screen,Urine Negative ng/ml (<300); Opiate Screen,Urine Positive ng/ml (<300); Phencyclidine Screen,Urine Negative ng/ml (<25)
== END 2023-12-06 23:59 ==
PROVIDERS: PCP Family Medicine; Visit Provider Family Medicine
DX: Z79.899 Other long term (current) drug therapy (principal)
CPT/HCPCS: 80307

== ENCOUNTER 2024-04-03 10:38 | Outpatient (CLI) | payer MEDICARE, MEDICAID, SELFPAY ==
--- NOTE | 2024-04-03 10:46 | XR_ITS ---
FINAL REPORT CLINICAL HISTORY: Low back pain FINDINGS: LEFT HIP 2 views of the left hip are obtained. There is no acute fracture or dislocation. There are mild degenerative changes. Visualized joint spaces are normally aligned. There is no acute soft tissue abnormality. IMPRESSION: No acute bony abnormality. Reviewed, Interpreted and Dictated by Ranjeet Ahumada III, MD Transcribed by Janna King Authenticated and [facility]
--- NOTE | 2024-04-03 10:46 | XR_ITS ---
FINAL REPORT CLINICAL HISTORY: hand pain FINDINGS: RIGHT HAND 2 views were obtained. There is no acute fracture or dislocation. There are mild degenerative changes. Visualized joint spaces are normally aligned. Soft tissues are unremarkable. IMPRESSION: No acute bony abnormality. Reviewed, Interpreted and Dictated by Ranjeet Ahumada III, MD Transcribed by Janna King Authenticated and . [facility]
--- NOTE | 2024-04-03 10:46 | XR_ITS ---
FINAL REPORT CLINICAL HISTORY: evaluation..hand pain FINDINGS: LEFT HAND 2 views were obtained. There is no acute fracture or dislocation. There are mild degenerative changes. Visualized joint spaces are normally aligned. Soft tissues are unremarkable. IMPRESSION: No acute bony abnormality. Reviewed, Interpreted and Dictated by Ranjeet Ahumada III, MD Transcribed by Janna King Authenticated and [facility]
--- NOTE | 2024-04-03 10:46 | XR_ITS ---
FINAL REPORT CLINICAL HISTORY: Low back pain FINDINGS: LUMBAR SPINE AP and lateral views were obtained. There is no acute fracture or malalignment. Vertebrae are normal height. There are mild and moderate degenerative changes. Gallstones are noted. IMPRESSION: No acute bony abnormality. Cholelithiasis. Reviewed, Interpreted and Dictated by Ranjeet Ahumada III, MD Transcribed by Janna King Authenticated and [facility]
== END 2024-04-03 23:59 | disposition home or self-care (01) ==
LOC: RAD 10:44
PROVIDERS: PCP Family Medicine; Visit Provider Family Medicine
DX: M79.605 Pain in left leg (principal); M25.552 Pain in left hip; M54.16 Radiculopathy, lumbar region; L40.50 Arthropathic psoriasis, unspecified; M79.641 Pain in right hand; M79.642 Pain in left hand
CPT/HCPCS: 72100; 73120; 73502

== ENCOUNTER 2024-07-16 15:54 | Emergency (ER) | payer MEDICARE, SELFPAY ==
[2024-07-16] VITALS (9 sets, daily range): BP systolic 107–128; BP diastolic 58–70; PULSE 48–74; RESP 18–20; TEMP 36.6–36.7; O2SAT 91–96; BMI 39.4
--- NOTE | 2024-07-16 16:06 | HMH.EDGENADL ---
Discharge Plan Prescriptions Prescriptions: No Action ibuprofen 200 mg tablet 200 mg PO Q6H PRN (Reason: .) lisinopril 20 mg tablet 20 mg PO DAILY Qty: 90 3RF hydrocodone-acetaminophen 5-325 mg tablet 1 tab PO BID PRN (Reason: pain) Qty: 60 0RF metformin 1,000 mg tablet 1,000 mg PO BID Qty: 180 3RF clobetasol 0.05 % cream 1 applic topical BID Qty: 30 3RF furosemide [Lasix] 40 mg tablet 40 mg PO .prn Rx Instructions: Decrease to MWF only. potassium chloride 20 mEq tablet extended release 20 meq PO .prn Ozempic 2 mg/dose (8 mg/3 mL) pen injector 2 mg SQ WEEKLY Qty: 3 5RF Otezla Starter 10 mg (4)-20 mg (4)-30 mg (47) tablets,dose pack See Rx Instructions PO PER PKG DIR Qty: 55 0RF Rx Instructions: PO PER PKG DIR Otezla 30 mg tablet 30 mg PO BID Qty: 60 10RF pantoprazole 20 mg tablet,delayed release (DR/EC) 20 mg PO DAILY Qty: 90 3RF diltiazem HCl [Cardizem CD] 120 mg Capsule,Extended Release 24hr 120 mg PO DAILY Qty: 30 3RF Referrals Follow up/Referrals: Mario Gibson MD [Primary Care Provider] - See instructions Print Language Print Language: Citizen Of [place] Discharge ED Provider: Baron Denny General Adult HPI General Stated complaint: headache, stage four liver , blood in stool Time Seen by Provider: 07/16/24 15:59 Related Data Home Medications ?Medication ?Instructions ?Recorded ?Confirmed ibuprofen 200 mg tablet 200 mg PO Q6H PRN . 02/01/23 07/12/24 furosemide 40 mg tablet (Lasix) 40 mg PO .prn edema 09/15/23 07/12/24 potassium chloride 20 mEq 20 meq PO .prn 09/15/23 07/12/24 tablet,extended release Previous Rx's ?Medication ?Instructions ?Recorded clobetasol 0.05 % topical cream 1 applic topical BID #30 grams 05/24/23 metformin 1,000 mg tablet 1,000 mg PO BID #180 tabs 05/24/23 diltiazem HCl 120 mg 120 mg PO DAILY #30 caps 09/08/23 capsule,extended release 24 hr (Cardizem CD) apremilast 10 mg (4)-20 mg (4)-30 See Rx Instructions PO PER PKG DIR 02/02/24 mg (47) tablets in a dose pack #55 tabs (Otezla Starter) semaglutide 2 mg/dose (8 mg/3 mL) 2 mg (0.75 mL) SQ WEEKLY #3 mL 02/02/24 subcutaneous pen injector (Ozempic) lisinopril 20 mg tablet 20 mg PO DAILY #90 tabs 02/14/24 apremilast 30 mg tablet (Otezla) 30 mg PO BID #60 tabs 03/08/24 pantoprazole 20 mg tablet,delayed 20 mg PO DAILY #90 tabs 06/02/24 release hydrocodone 5 mg-acetaminophen 325 1 tab PO BID PRN pain #60 tabs 07/12/24 mg tablet Allergies Allergy/AdvReac Type Severity Reaction Status Date / Time No Known Allergies Allergy Verified 07/12/24 11:40 [facility] Disclaimer: The information contained in this section may have been updated after the patient was seen, as this information can be updated by other users. Medical History Medication management CAD (coronary artery disease) Cirrhosis of liver Abnormal result of cardiovascular function study Abnormal electrocardiogram [ECG] [EKG] Surgical History History of partial hysterectomy Hx of appendectomy Family History Other Cancer Coronary artery disease Dementia Diabetes Heart attack Hyperlipidemia Hypertension Social History Smoking Status: Current every day smoker tobacco type: cigarettes packs per day: 2 second hand exposure: No alcohol intake: current alcohol intake frequency: holidays/special occasions only substance use type: denies use current occupational status: disabled Travel in the last 8 weeks: None household members: spouse and children housing: house current occupational exposures/hazards: No caffeine: No ROS Obtained: Yes Systems reviewed as appropriate & no additional complaints except as documented Physical Exam General General appearance: alert and in no apparent distress Head Head exam: atraumatic and normal inspection Eye Eye exam: Present normal appearance, PERRL and EOMI ENT ENT exam: Present normal exam, normal oropharynx and mucous membranes moist Neck Neck exam: Present normal inspection, full ROM and trachea midline; Absent lymphadenopathy Chest Chest inspection: Present normal inspection and symmetric chest wall rise Respiratory Respiratory exam: Present normal lung sounds bilaterally; Absent accessory muscle use Cardiovascular Cardiovascular exam: Present regular rate, normal rhythm, normal heart sounds, +S1 and +S2 Abdominal Exam Abdominal exam: Present soft and normal bowel sounds; Absent tenderness, guarding or rebound Extremities Exam Extremities exam: Present normal inspection and full ROM Neurological Exam Neurological exam: Present alert, oriented X3 and CN II-XII intact Psychiatric Psychiatric exam: Present normal affect and normal mood Skin Skin exam: Present warm, dry and normal color Lymphatic Lymphatic Findings: no adenopathy Medical Decision Making Orders (Tests/Meds): ED MEDICATIONS Generic Name Dose Route Start Last Admin Trade Name Freq PRN Reason Stop Dose Admin Diphenhydramine HCl 25 mg 07/16/24 16:00 Diphenhydramine 50mg/Ml Vial IV 07/16/24 16:01 ONCE ONE Ceftriaxone Sodium 2 gm/ 100 mls @ 200 mls/hr 07/16/24 16:00 Sodium Chloride IV 07/16/24 16:29 ONCE ONE Sodium Chloride 1,000 mls @ 999 mls/hr 07/16/24 16:00 Sod Chlor 0.9% 1000ml Bag IV 07/16/24 17:00 .Q1H1M ONE Magnesium Sulfate 2 gm in 50 mls @ 50 mls/hr 07/16/24 16:00 Magnesium Sulfate 2gm/50ml Premix IV 07/16/24 16:59 ONCE ONE Pantoprazole Sodium 40 mg 07/16/24 16:00 Pantoprazole 40mg Vial IV 07/16/24 16:01 ONCE ONE Prochlorperazine Edisylate 10 mg 07/16/24 16:00 Prochlorperazine 10mg/2ml Vial IV 07/16/24 16:01 ONCE ONE Sodium Chloride 10 ml 07/16/24 16:00 Sodium Chloride 0.9% 10ml Vial IV 08/15/24 15:59 NEEDED PRN dilute protonix ORDERS Category Date Time Status Ammonia Stat Lab 07/16/24 16:00 Ordered CBC w/Auto Diff [Complete Blood Count Auto Diff] Stat Lab 07/16/24 16:00 Ordered CMP [Comprehensive Metabolic Panel] Stat Lab 07/16/24 16:00 Ordered Lactic Acid Stat Lab 07/16/24 16:00 Ordered Lipase Stat Lab 07/16/24 16:00 Ordered Magnesium Stat Lab 07/16/24 16:00 Ordered PT INR [Prothrombin Time INR] Stat Lab 07/16/24 16:00 Ordered PTT [Activated Partial Thrombo Time] Stat Lab 07/16/24 16:00 Ordered UA [Urinalysis and Microscopic] Stat Lab 07/16/24 16:00 Ordered Medical Decision Narrative: In summary patient is a [age, sex] who presents to the emergency department for evaluation of [complaint]. Patient is [hemodynamically stable/unstable] upon arrival, [febrile/afebrile]. [Unremarkable physical exam, nonfocal exam versus focal remarkable exam]. Differential diagnosis includes [DDx]. Initial workup will be conducted with [hematologic labs, imaging, respiratory swab, describe workup]. Initial interventions include [crystalloid bolus, medications, p.o. challenge, etc.] initial workup reviewed by me [hematologic labs are remarkable for... Imaging remarkable for... Urinalysis remarkable for]. Upon repeat evaluation [patient had acceptable resolution of symptoms, had persistent pain for which additional interventions were conducted (describe interventions), tolerated p.o., was ambulatory, etc.]. Given this [patient is appropriate for discharge at this time and will be discharged with a prescription for... The case was discussed with hospital medicine regarding management and they will admit the patient their service for continued evaluation at this time... Etc.] Places where you can increase complexity: I informally interpreted the patient's chest x-ray or CT read and is remarkable for... Documenting what the surveillance system monitor shows with rate and rhythm Consideration of test but deferring. Ex: I considered chest x-ray on this patient however given that they have no oxygen requirement and are clear to auscultation all lung barron will be deferred. Social determinants of health: Given that patient is undomiciled increases complexity. Given that patient has polysubstance abuse compounds all aspects of care
[2024-07-16 16:12] LABS: Microscopic, Urine URINE MICROSCOPIC (MICROSCOPIC)
[2024-07-16 16:13] LABS: Appearance,Urine CLEAR (Clear); Bilirubin,Urine Negative (Negative); Blood, Urine Negative (Negative); Color,Urine YELLOW (Yellow); Glucose,Urine (UA) Negative (Negative); Ketones,Urine Negative (Negative); Leukocyte Esterase,Urine Negative (Negative); Nitrate,Urine Negative (Negative); PH,Urine 6.5 (5.0-8.5); Protein,Urine Negative (Negative); Specific Gravity, Urine <= 1.005 (1.005-1.030); Urobilinogen,Urine 0.2 EU/dl (0.2)
--- NOTE | 2024-07-16 16:16 | ECG_ITS ---
APPROVED REPORT Exam: Resting ECG HR:58 bpm ECG Measurements Heart Rate 58 AXES IN 161 P 58 QRSd 84 QRS 41 QT 450 T 36 QTc 447 Conclusion Sinus bradycardia Electronically signed by : AYAD BARBER, 07/16/2024 23:26:59
--- NOTE | 2024-07-16 16:19 | CT_ITS ---
PROCEDURE INFORMATION: Exam: CTA Abdomen and Pelvis With Contrast Exam date and time: 07/16/2024 5:41 PM Age: 59 years old Clinical indication: Abdominal pain; Epigastric; Additional info: Rectal bleeding bright red, epigastric abd pain TECHNIQUE: Imaging protocol: Computed tomographic angiography of the abdomen and pelvis with contrast. Exam focused on the arteries. 3D rendering (Not supervised by radiologist): MIP and/or 3D reconstructed images were created by the technologist. Radiation optimization: All CT scans at this facility use at least one of these dose optimization techniques: automated exposure control; mA and/or kV adjustment per patient size (includes targeted exams where dose is matched to clinical indication); or iterative reconstruction. Contrast material: ISO 370; Contrast volume: 80 ml; Contrast route: INTRAVENOUS (IV); COMPARISON: CT ABDOMEN WO CON 10/17/2021 6:59 AM FINDINGS: Aorta: No aortic aneurysm. No aortic dissection. Celiac trunk and mesenteric arteries: No occlusion or significant stenosis. Renal arteries: No occlusion or significant stenosis. Right iliac arteries: No occlusion or significant stenosis. Left iliac arteries: No occlusion or significant stenosis. Liver: The liver appears within normal limits. Gallbladder and biliary ducts: There are a few gallstones identified. Subcentimeter. Otherwise gallbladder normal. Pancreas: The pancreas is normal. Spleen: The spleen is normal. Adrenal glands: Left adrenal adenoma noted measures 1.2 cm. Kidneys and ureters: Mild cortical scar within the left kidney upper pole. Otherwise kidneys unremarkable. Stomach and bowel: Unremarkable. No obstruction. No mucosal thickening. Appendix: No evidence of appendicitis. Intraperitoneal space: Unremarkable. No free air. No significant fluid collection. Lymph nodes: Unremarkable. No enlarged lymph nodes. Urinary bladder: The bladder appears within normal limits. No wall thickening. Reproductive: There has been a hysterectomy. Bones/joints: No acute fracture. Soft tissues: The visualize subcutaneous soft tissues and abdominal wall and flank wall appear unremarkable. IMPRESSION: No CT evidence for active GI bleed.
--- NOTE | 2024-07-16 16:19 | CT_ITS ---
PROCEDURE INFORMATION: Exam: CTA Neck With Contrast Exam date and time: 07/16/2024 5:36 PM Age: 59 years old Clinical indication: Dizziness and giddiness and headache; Additional info: Acute MARTÍNEZ and dizziness TECHNIQUE: Imaging protocol: Computed tomographic angiography of the neck with contrast. Exam focused on the cervical segments of the vasculature. 3D rendering (Not supervised by radiologist): MIP and/or 3D reconstructed images were created by the technologist. Radiation optimization: All CT scans at this facility use at least one of these dose optimization techniques: automated exposure control; mA and/or kV adjustment per patient size (includes targeted exams where dose is matched to clinical indication); or iterative reconstruction. Contrast material: ISO 370; Contrast volume: 80 ml; Contrast route: INTRAVENOUS (IV); COMPARISON: CT SOFT TISSUE NECK WO CON 10/18/2020 2:24 PM FINDINGS: Right common carotid artery: No stenosis. No dissection or occlusion. Right internal carotid artery: Mild stenosis of the proximal cervical segment. No dissection or occlusion. Right external carotid artery: No occlusion or stenosis of the origin. Left common carotid artery: Mild atherosclerotic narrowing near the origin and at the carotid bulb without flow-limiting stenosis. No dissection or occlusion. Left internal carotid artery: Mild stenosis of the proximal cervical segment. No dissection or occlusion. Left external carotid artery: No occlusion or stenosis of the origin. Right vertebral artery: No stenosis. No dissection or occlusion. Left vertebral artery: No stenosis. No dissection or occlusion. Soft tissues: Normal. No significant soft tissue swelling. Bones/joints: No acute fracture. Cervical spondylosis. IMPRESSION: Mild bilateral internal carotid artery proximal cervical segment stenosis. REFERENCES: NASCET CRITERIA. The degree of stenosis in the cervical segment of the internal carotid artery is based on NASCET criteria. Normal is no stenosis. Mild is less than 50% stenosis. Moderate is 50-69% stenosis. Severe is 70% to 99% stenosis. Total occlusion is no detectable patent lumen.
--- NOTE | 2024-07-16 16:19 | CT_ITS ---
PROCEDURE INFORMATION: Exam: CT Head Without Contrast Exam date and time: 07/16/2024 5:36 PM Age: 59 years old Clinical indication: Dizziness; Additional info: Acute MARTÍNEZ and dizziness TECHNIQUE: Imaging protocol: Computed tomography of the head without contrast. Radiation optimization: All CT scans at this facility use at least one of these dose optimization techniques: automated exposure control; mA and/or kV adjustment per patient size (includes targeted exams where dose is matched to clinical indication); or iterative reconstruction. COMPARISON: CT ANGIO HEAD 07/16/2024 5:36 PM FINDINGS: Brain: No acute intracranial hemorrhage, midline shift or mass effect. Mild diffuse brain parenchymal volume loss. Maintained butler-white matter differentiation. Cerebral ventricles: No ventriculomegaly. Paranasal sinuses: [id number] mucosal thickening most prevalent within the maxillary and right posterior sphenoid sinuses. Bubbly opacities within a right posterior sphenoid air cell may suggest acute sinusitis. Mastoid air cells: Visualized mastoid air cells are well aerated. Bones: Unremarkable. No acute fracture. Soft tissues: Unremarkable. IMPRESSION: 1. No acute intracranial findings. 2. Paranasal sinus disease.
--- NOTE | 2024-07-16 16:19 | CT_ITS ---
PROCEDURE INFORMATION: Exam: CTA Head With Contrast, Arteriography Exam date and time: 07/16/2024 5:36 PM Age: 59 years old Clinical indication: Headache; Additional info: Acute MARTÍNEZ and dizziness TECHNIQUE: Imaging protocol: Computed tomographic angiography of the head with contrast. Exam focused on the arteries. 3D rendering (Not supervised by radiologist): MIP and/or 3D reconstructed images were created by the technologist. Radiation optimization: All CT scans at this facility use at least one of these dose optimization techniques: automated exposure control; mA and/or kV adjustment per patient size (includes targeted exams where dose is matched to clinical indication); or iterative reconstruction. Contrast material: ISO 370; Contrast volume: 80 ml; Contrast route: INTRAVENOUS (IV); COMPARISON: CT HEAD/BRAIN WO CON 07/16/2024 5:36 PM FINDINGS: ANTERIOR CIRCULATION: Right internal carotid artery: Minimal atherosclerotic narrowing of the intracranial segment without flow-limiting stenosis. No aneurysm. Right middle cerebral artery: No occlusion or significant stenosis. No aneurysm. Right anterior cerebral artery: No occlusion or significant stenosis. No aneurysm. Left internal carotid artery: Macro intracranial mild Left middle cerebral artery: No occlusion or significant stenosis. No aneurysm. Left anterior cerebral artery: No occlusion or significant stenosis. No aneurysm. POSTERIOR CIRCULATION: Right vertebral artery: No occlusion or significant stenosis. No aneurysm. Left vertebral artery: No occlusion or significant stenosis. No aneurysm. Basilar artery: No occlusion or significant stenosis. No aneurysm. Right posterior cerebral artery: No occlusion or significant stenosis. No aneurysm. Left posterior cerebral artery: No occlusion or significant stenosis. No aneurysm. Brain: No definite mass, mass effect, or midline shift. Cerebral ventricles: No ventriculomegaly. Bones/joints: Unremarkable. No acute fracture. Soft tissues: Unremarkable. IMPRESSION: No large vessel stenosis or occlusion.
--- NOTE | 2024-07-16 16:26 | ED_ITS ---
Discharge Plan Disposition Patient Disposition: Home, Self-Care Prescriptions Prescriptions: No Action ibuprofen 200 mg tablet 200 mg PO Q6H PRN (Reason: .) lisinopril 20 mg tablet 20 mg PO DAILY Qty: 90 3RF hydrocodone-acetaminophen 5-325 mg tablet 1 tab PO BID PRN (Reason: pain) Qty: 60 0RF metformin 1,000 mg tablet 1,000 mg PO BID Qty: 180 3RF clobetasol 0.05 % cream 1 applic topical BID Qty: 30 3RF furosemide [Lasix] 40 mg tablet 40 mg PO .prn Rx Instructions: Decrease to MWF only. potassium chloride 20 mEq tablet extended release 20 meq PO .prn Ozempic 2 mg/dose (8 mg/3 mL) pen injector 2 mg SQ WEEKLY Qty: 3 5RF Otezla Starter 10 mg (4)-20 mg (4)-30 mg (47) tablets,dose pack See Rx Instructions PO PER PKG DIR Qty: 55 0RF Rx Instructions: PO PER PKG DIR Otezla 30 mg tablet 30 mg PO BID Qty: 60 10RF pantoprazole 20 mg tablet,delayed release (DR/EC) 20 mg PO DAILY Qty: 90 3RF diltiazem HCl [Cardizem CD] 120 mg Capsule,Extended Release 24hr 120 mg PO DAILY Qty: 30 3RF Referrals Follow up/Referrals: Mario Gibson MD [Primary Care Provider] - See instructions Activity Restrictions/Add. Instructions Additional Instructions/Restrictions: Call your family doctor to establish care for this visit to the emergency department and schedule follow-up within 48 hours to ensure improvement. Also talk to them about GI referral and/or general surgery referral for colonoscopy. If you have any worsening of your condition or any other concerning signs or symptoms, return to the emergency department or your primary care doctor for further evaluation. Take Tylenol 1000 mg every 6 hours (4 times daily) and ibuprofen 400 mg every 6 hours (4 times daily) as needed with food and water to prevent GI upset and kidney damage. Clinical Impressions Clinical Impression: Headache, Rectal bleeding Print Language Print Language: Peruvian Discharge ED Provider: Baron Denny General Adult [facility] General Chief complaint: Dizziness Stated complaint: headache, stage four liver , blood in stool Time Seen by Provider: 07/16/24 15:59 Mode of Arrival: Ambulatory Source of Information: Patient Limitations: No Limitations Description of Symptoms (Recalled from ER Triage Doc. by RN): c/o sitting at her table when suddenly she felt dizzy, lightheaded and MARTÍNEZ. History of Present Illness HPI narrative: Please note that above description of symptoms, in this electronic medical record under categorization of recalled from ER triage doctor by RN are reflective of an initial nursing assessment, however, is not reflective of my full history and physical exam that was personally taken and clarified. Consequentially, this preceding description of symptoms, which may include the patient's categorized chief complaint in the EMR, do not reflect my personal clinical impression, and the ultimate description of history of present illness and patient stated complaints should be deferred to this section of the note. Unless stated otherwise or congruent with this section of the note, additional signs, symptoms, or incongruence should be interpreted as inaccurate with my clinical impression. Related Data Home Medications ?Medication ?Instructions ?Recorded ?Confirmed ibuprofen 200 mg tablet 200 mg PO Q6H PRN . 02/01/23 07/12/24 furosemide 40 mg tablet (Lasix) 40 mg PO .prn edema 09/15/23 07/12/24 potassium chloride 20 mEq 20 meq PO .prn 09/15/23 07/12/24 tablet,extended release Previous Rx's ?Medication ?Instructions ?Recorded clobetasol 0.05 % topical cream 1 applic topical BID #30 grams 05/24/23 metformin 1,000 mg tablet 1,000 mg PO BID #180 tabs 05/24/23 diltiazem HCl 120 mg 120 mg PO DAILY #30 caps 09/08/23 capsule,extended release 24 hr (Cardizem CD) apremilast 10 mg (4)-20 mg (4)-30 See Rx Instructions PO PER PKG DIR 02/02/24 mg (47) tablets in a dose pack #55 tabs (Otezla Starter) semaglutide 2 mg/dose (8 mg/3 mL) 2 mg (0.75 mL) SQ WEEKLY #3 mL 02/02/24 subcutaneous pen injector (Ozempic) lisinopril 20 mg tablet 20 mg PO DAILY #90 tabs 02/14/24 apremilast 30 mg tablet (Otezla) 30 mg PO BID #60 tabs 03/08/24 pantoprazole 20 mg tablet,delayed 20 mg PO DAILY #90 tabs 06/02/24 release hydrocodone 5 mg-acetaminophen 325 1 tab PO BID PRN pain #60 tabs 07/12/24 mg tablet Allergies Allergy/AdvReac Type Severity Reaction Status Date / Time No Known Allergies Allergy Verified 07/12/24 11:40 [facility] Disclaimer: The information contained in this section may have been updated after the patient was seen, as this information can be updated by other users. Medical History Medication management CAD (coronary artery disease) Cirrhosis of liver Abnormal result of cardiovascular function study Abnormal electrocardiogram [ECG] [EKG] Surgical History History of partial hysterectomy Hx of appendectomy Family History Other Cancer Coronary artery disease Dementia Diabetes Heart attack Hyperlipidemia Hypertension Social History Smoking Status: Current every day smoker tobacco type: cigarettes packs per day: 2 second hand exposure: No alcohol intake: current alcohol intake frequency: holidays/special occasions only substance use type: denies use current occupational status: disabled Travel in the last 8 weeks: None household members: spouse and children housing: house current occupational exposures/hazards: No caffeine: No ROS Obtained: Yes All systems reviewed & no additional complaints except as documented Physical Exam General General appearance: alert, in no apparent distress and obese Head Head exam: atraumatic and normocephalic Eye Eye exam: Present normal appearance, PERRL, EOMI and other (Photophobic); Absent scleral icterus, conjunctival redness, jaundice or nystagmus ENT ENT exam: Present mucous membranes moist Neck Neck exam: Present normal inspection, full ROM and trachea midline; Absent meningismus Respiratory Respiratory exam: Present normal lung sounds bilaterally; Absent respiratory distress, wheezes, stridor, accessory muscle use or prolonged expiratory phase Cardiovascular Cardiovascular exam: Present regular rate, normal rhythm and other (Pulses equal symmetric in upper and lower extremities) Abdominal Exam Abdominal exam: Present soft; Absent distention, tenderness or pulsatile mass Extremities Exam Extremities exam: Present full ROM; Absent edema Neurological Exam Neurological exam: Present alert, oriented X3 and CN II-XII intact; Absent motor sensory deficit Skin Skin exam: Present warm and dry; Absent diaphoresis or erythema Medical Decision Making Medical Records Medical records reviewed: Yes I reviewed the patient's medical records. Edwar Inquiry Pt receiving controlled substance: No Edwar was queried for this patient: No Vital Signs: 07/16/24 15:56 07/16/24 16:11 07/16/24 16:41 Temperature 98.0 F Temperature Source Oral Pulse Rate 62 61 Pulse Rate [Left Radial] 68 Respiratory Rate 18 Blood Pressure 109/69 L Blood Pressure [Right Arm] 125/70 Blood Pressure Mean [Right Arm] 88 Blood Pressure Source Blood Pressure Source [Right Arm] Automatic Cuff Blood Pressure Position Blood Pressure Position [Right Arm] Sitting 02 Sat by Pulse Oximetry 96 96 95 Oxygen Delivery Method Room Air 07/16/24 17:00 07/16/24 17:54 07/16/24 18:00 Temperature Temperature Source Pulse Rate 48 L 57 L 61 Pulse Rate [Left Radial] Respiratory Rate Blood Pressure 107/58 L 118/69 118/68 Blood Pressure [Right Arm] Blood Pressure Mean [Right Arm] Blood Pressure Source Blood Pressure Source [Right Arm] Blood Pressure Position Blood Pressure Position [Right Arm] 02 Sat by Pulse Oximetry 91 L 96 95 Oxygen Delivery Method 07/16/24 18:30 07/16/24 19:24 Temperature Temperature Source Pulse Rate 56 L 61 Pulse Rate [Left Radial] Respiratory Rate 20 Blood Pressure 123/65 128/65 Blood Pressure [Right Arm] Blood Pressure Mean [Right Arm] Blood Pressure Source Automatic Cuff Blood Pressure Source [Right Arm] Blood Pressure Position Supine Blood Pressure Position [Right Arm] 02 Sat by Pulse Oximetry 94 L 95 Oxygen Delivery Method Room Air Room Air Lab Data Lab Results 07/16/24 16:07: Urine Color Yellow, Urine Appearance Clear, Urine pH 6.5, Ur Specific [place] <= 1.005, Urine Protein Negative, Urine Glucose (UA) Negative, Urine Ketones Negative, Urine Blood Negative, Urine Nitrate Negative, Urine Bilirubin Negative, Urine Urobilinogen 0.2, Ur Leukocyte Esterase Negative, Urine RBC None, Urine WBC None, Ur Squamous Epith Cells 3-5 07/16/24 16:25: WBC 10.4, RBC 5.39, Hgb 15.7, Hct 49.7 H, MCV 92.1, MCH 29.2, M CHC 31.7 L, RDW 14.7, Plt Count 219, MPV 8.0, Neut % (Auto) 53.9, Lymph % (Auto) 37.1, Mill[place] % (Auto) 5.9, Eos % (Auto) 1.9, Baso % (Auto) 1.2, Neut # (Auto) 5.6, Lymph # (Auto) 3.9, Millard # (Auto) 0.6, Eos # (Auto) 0.2, Baso # (Auto) 0.1, PT 11.0, INR 0.98, APTT 27.1, Sodium 139, Potassium 4.1, Chloride 108 H, Carbon Dioxide 29, Anion Gap 6.1, BUN 11, Creatinine 0.70, Estimated Creat Clear 154, Estimated GFR 85, Est GFR ( Amer) 103, Glucose 69 L, Lactate 0.8, Calcium 8.7, Magnesium 2.1, Total Bilirubin 0.6, AST 23, ALT 15, Alkaline Phosphatase 98, Ammonia < 9 L, Troponin I < 0.01, NT-Pro-B Natriuret Pep 103, Total Protein 7.2, Albumin 3.7, Globulin 3.5 H, Albumin/Globulin Ratio 1.1, Lipase 52 07/16/24 19:55: Troponin I < 0.01 07/16/24 16:25 07/16/24 16:25 Orders (Tests/Meds): ED MEDICATIONS Generic Name Dose Route Start Last Admin Trade Name Freq PRN Reason Stop Dose Admin Sodium Chloride 10 ml 07/16/24 16:00 Sodium Chloride 0.9% 10ml Vial IV 08/15/24 15:59 NEEDED PRN dilute protonix Sodium Chloride 10 ml 07/16/24 17:41 07/16/24 17:42 Sodium Chloride 0.9% 10ml Syr (Rad Only) IV 08/15/24 17:40 10 ml NEEDED PRN Administration Maintain IV Site Discontinued Medications Generic Name Dose Route Start Last Admin Trade Name Freq PRN Reason Stop Dose Admin Acetaminophen 1,000 mg 07/16/24 16:24 07/16/24 16:34 Acetaminophen 500mg Tab PO 07/16/24 16:25 1,000 mg ONCE ONE Administration Diphenhydramine HCl 25 mg 07/16/24 16:00 07/16/24 16:33 Diphenhydramine 50mg/Ml Vial IV 07/16/24 16:01 25 mg ONCE ONE Administration Ceftriaxone Sodium 2 gm/ 100 mls @ 200 mls/hr 07/16/24 16:00 07/16/24 16:33 Sodium Chloride IV 07/16/24 16:29 200 mls/hr ONCE ONE Administration Sodium Chloride 1,000 mls @ 999 mls/hr 07/16/24 16:00 07/16/24 16:34 Sod Chlor 0.9% 1000ml Bag IV 07/16/24 17:00 999 mls/hr .Q1H1M ONE Administration Magnesium Sulfate 2 gm in 50 mls @ 50 mls/hr 07/16/24 16:00 07/16/24 16:31 Magnesium Sulfate 2gm/50ml Premix IV 07/16/24 16:59 50 mls/hr ONCE ONE Administration Iopamidol 160 ml 07/16/24 17:41 07/16/24 17:42 Iopamidol-370 (76%);100ml Bottle IV 07/16/24 17:42 160 ml ONCE ONE Administration Ketorolac Tromethamine 15 mg 07/16/24 16:24 07/16/24 16:33 Ketorolac 30mg/Ml Vial IV 07/16/24 16:25 15 mg ONCE ONE Administration Pantoprazole Sodium 40 mg 07/16/24 16:00 07/16/24 16:33 Pantoprazole 40mg Vial IV 07/16/24 16:01 40 mg ONCE ONE Administration Prochlorperazine Edisylate 10 mg 07/16/24 16:00 07/16/24 16:33 Prochlorperazine 10mg/2ml Vial IV 07/16/24 16:01 10 mg ONCE ONE Administration Sodium Chloride 100 ml 07/16/24 17:41 07/16/24 17:42 0.9 % Sodium Chloride 50 Ml Vial IV 07/16/24 17:42 100 ml ONCE ONE Administration ORDERS Category Date Time Status CT angio abdomen pelvis Stat Cat Scan 07/16/24 16:[address] angio head Stat Cat Scan 07/16/24 16:[address] angio neck Stat Cat Scan 07/16/24 16:[address] head/brain wo con Stat Cat Scan 07/16/24 16:19 Completed Ammonia Stat Lab 07/16/24 16:25 Completed CBC w/Auto Diff [Complete Blood Count Auto Diff] Stat Lab 07/16/24 16:25 Completed CMP [Comprehensive Metabolic Panel] Stat Lab 07/16/24 16:25 Completed Lactic Acid Stat Lab 07/16/24 16:25 Completed Lipase Stat Lab 07/16/24 16:25 Completed Magnesium Stat Lab 07/16/24 16:25 Completed NT Pro Brain Natriuretic Pep. Stat Lab 07/16/24 16:25 Completed PT INR [Prothrombin Time INR] Stat Lab 07/16/24 16:25 Completed PTT [Activated Partial Thrombo Time] Stat Lab 07/16/24 16:25 Completed Trop I [Troponin I] Stat Lab 07/16/24 16:25 Completed Troponin I Q3H Lab 07/16/24 19:55 Completed Troponin I Q3H Lab 07/16/24 22:30 Ordered UA [Urinalysis and Microscopic] Stat Lab 07/16/24 16:07 Completed HEART Score History (anamnesis): Slightly suspicious ECG: Normal Age: 45-65 years Risk factors: Atherosclerosis history Troponin: </= normal limit HEART Score: 3 Medical Decision Narrative: 59-year-old female history of hypertension, hyperlipidemia, diabetes, [place] cirrhosis, peptic ulcer disease presenting with multiple complaints. Patient states that she was sitting at lunch just before this when she had an acute onset headache and started feeling dizzy. No nausea or vomiting. Patient states that she has been photophobic since that time. Did not syncopized. Pain was severe in intensity at onset, but unsure if it was maximally intense at onset or if it is worse now. Does not radiate. Made worse by lights, made better with closing eyes. Has not taken any meds for this. Denies any trauma, confusion, neurologic deficits, weakness, history of headaches, vision changes, or any other concerns. History was obtained via conversation with patient and son. On arrival, patient hemodynamically stable, alert, oriented x4, appropriate, GCS 15, moving all extremities spontaneously, pupils equal and reactive to light. Full physical exam performed and significant for uncomfortable appearing woman who is in no acute distress. Has a towel over her eyes. Neurologic exam intact including cranial nerves, cerebellar, motor and sensory exams. She has no evidence of nystagmus, but does state that she is currently feeling mildly dizzy/lightheaded. Not made worse with changes in head position or changes in body position. Cardiac exam within normal limits, no murmurs, gallops, rubs, pulses are equal and symmetric in upper and lower extremities, lungs are clear to auscultation bilaterally. Belly soft, nondistended, unremarkable. Differential includes intracranial hemorrhage, sentinel bleed, aneurysm, migraine headache, complex migraine, tension headache, among others. Patient placed on continuous cardiac monitoring and continuous pulse ox with initial blood pressure 125/70, heart rate 68, saturation 96% on room air. Independent interpretation of EKG shows sinus bradycardia 58 beats minute with no ST or T wave changes concerning for acute ischemia. MS 161, QRS 84, QTc 447. Patient was given acetaminophen, Toradol, Compazine, Benadryl, magnesium, fluid bolus, Protonix, Rocephin 2 g for symptomatic management and correction of underlying abnormalities. Patient was placed in observation beginning at 4 PM in order to rule out evolving [place] with delta troponins, give migraine cocktail monitor for improvement and determine need for admission versus home-going. The patient was provided serial exams, monitoring, p.o. challenge while awaiting results. On reevaluation, patient without headache, feeling much better, tired, but upon being woken up, not dizzy, no current symptoms. Workup independently interpreted and significant for nonactionable CBC, chemistry, ammonia, troponin, or any other abnormalities that are actionable. On independent interpretation of imaging, no acute intracranial hemorrhage. CTA of the head neck no acute intracranial thrombosis or embolism, no obvious aneurysm. CTA of the abdomen and pelvis demonstrated no acute evidence of GI bleed. See radiology read for full review of final results. Heart score 3. At this time, I feel patient is appropriate for discharge. Total observation time 3.5 hours. On reevaluation, patient still without symptoms. Given patient presentation, workup, history, this most likely represents acute migraine headache. Less likely cardiac primary given negative workup, less likely to be CVA or intracranial bleed given negative workup in terms of imaging as well and negative NIHSS. Because patient at baseline without signs or symptoms of clinical decompensation, deemed appropriate for discharge. Results were relayed to patient who voiced understanding and were agreeable to outpatient management and follow up. I discussed my clinical impression with patient and answered all questions. At this time, the evidence for any other entities in the differential is insufficient to warrant any further testing or ED observation. This was explained as well. Advisory was given that persistent or worsening symptoms require further evaluation. I confirmed the understanding of this discussion. Service Secretary disclaimer Much of this encounter note is an electronic online content editor spoken language to printed text. Electronic online content editor of the spoken language may permit errors. Although I have reviewed the note, some errors may still exist. Critical Care Critical Care Time Critical Care Time: No
[2024-07-16] MEDS: MAGNESIUM SULFATE IN WATER 2 GM/50 ML PIGGYBACK IV (16:31)
[2024-07-16] MEDS: PANTOPRAZOLE 40MG VIAL 40 MG IV (16:33)
[2024-07-16] MEDS: PROCHLORPERAZINE 10MG/2ML VIAL 10 MG IV (16:33)
[2024-07-16] MEDS: CEFTRIAXONE SODIUM 2 GM in 0.9 % SODIUM CHLORIDE 100 ML IV (16:33)
[2024-07-16] MEDS: diphenhydrAMINE 50MG/ML VIAL 25 MG IV (16:33)
[2024-07-16] MEDS: KETOROLAC 30MG/ML VIAL 15 MG IV (16:33)
[2024-07-16] MEDS: ACETAMINOPHEN 500MG TAB 1000 MG PO (16:34)
[2024-07-16] MEDS: 0.9 % SODIUM CHLORIDE 1000ML 1,000 ML 999 ML IV (16:34)
[2024-07-16 16:51] LABS: Albumin Level 3.7 g/dl (3.5-5.0); Chloride 108 mmol/L (98-107)
[2024-07-16 16:52] LABS: Potassium 4.1 mmoL/L (3.5-5.1); Sodium 139 mmol/L (136-145)
[2024-07-16 16:53] LABS: Activated Partial Thrombo Time 27.1 seconds (22.8-30.6); INR 0.98 (0.9-1.1)
[2024-07-16 16:54] LABS: Alanine Aminotransferase 15 U/L (12-78); Albumin/Globulin Ratio 1.1 (1.1-1.8); Alkaline Phosphatase 98 U/L (38-126); Anion Gap 6.1 mEq/L (5-15); Aspartate Amino Transferase 23 U/L (14-36); Bilirubin,Total 0.6 mg/dl (0.2-1.3); Blood Urea Nitrogen 11 mg/dl (7-17); Carbon Dioxide 29 mmol/L (22.0-30.0); Creatinine Clearance Estimated 154 mL/min (50-200); Estimated Glomerular Filt Rate 85 ml/min (>60); GFR (African American) 103 ML/MIN (>60); Globulin 3.5 g/dL (1.3-3.2); Total Protein,Serum 7.2 g/dl (6.3-8.2)
[2024-07-16 16:55] LABS: Calcium 8.7 mg/dl (8.4-10.2); Glucose 69 mg/dl (74-100); Lactic Acid 0.8 mmol/L (0.7-2.1); Lipase 52 U/L (23-300); Magnesium 2.1 mg/dl (1.6-2.3)
[2024-07-16 16:56] LABS: Ammonia < 9 umol/L (9-30)
[2024-07-16 17:04] LABS: NT Pro Brain Natriuretic Pep. 103 pg/mL (0-125)
[2024-07-16 17:08] LABS: Troponin I < 0.01 ng/ml (0.00-0.034)
--- NOTE | 2024-07-16 17:17 | PC.NURSE ---
calling [facility] at this time for transfer back to the [facility].
[2024-07-16 17:22] LABS: Basophils # 0.1 K/mm3 (0-0.2); Basophils % 1.2 % (0.1-2.0); Eosinophils # 0.2 K/mm3 (0.0-0.4); Eosinophils % 1.9 % (0.1-12.0); Hematocrit 49.7 % (37.0-47.0); Hemoglobin 15.7 g/dL (12.2-16.2); Lymphocytes # 3.9 K/mm3 (0.7-4.5); Lymphocytes % 37.1 % (10-50); Mean Corpuscular HGB Conc 31.7 g/dL (31.8-35.4); Mean Corpuscular Hemoglobin 29.2 pg (27.0-31.2); Mean Corpuscular Volume 92.1 fl (81-99); Monocytes # 0.6 K/mm3 (0.1-1.0); Monocytes % 5.9 % (1.7-9.3); Neutrophils # 5.6 K/mm3 (1.8-7.8); Neutrophils % 53.9 % (37.0-80.0); Platelet Count 219 K/mm3 (142-424); Red Blood Count 5.39 M/mm3 (4.20-5.40); Red Cell Distribution Width 14.7 % (11.5-17.5); White Blood Count 10.4 K/mm3 (4.8-10.8)
--- NOTE | 2024-07-16 17:28 | PC.NURSE ---
Pt gone to RAD via stretcher
[2024-07-16] MEDS: IOPAMIDOL-370 (76%);100ML BOTTLE 160 ML IV (17:42)
[2024-07-16] MEDS: 0.9 % SODIUM CHLORIDE 50 ML VIAL 100 ML IV (17:42)
[2024-07-16] MEDS: SODIUM CHLORIDE 0.9% 10ML SYR (RAD ONLY) 10 ML IV (17:42)
--- NOTE | 2024-07-16 17:46 | PC.NURSE ---
Pt returned from RAD
--- NOTE | 2024-07-16 17:55 | PC.NURSE ---
Rounded on pt. Warm blanket provided. No other needs voiced. Call light remains within reach.
--- NOTE | 2024-07-16 19:22 | PC.NURSE ---
pt assisted to bathroom
--- NOTE | 2024-07-16 19:25 | PC.NURSE ---
Pt. up to bathroom to void. Ambulated to bathroom and back to room.
--- NOTE | 2024-07-16 19:56 | PC.NURSE ---
Second Trop. level drawn and sent to lab.
[2024-07-16 20:26] LABS: Troponin I < 0.01 ng/ml (0.00-0.034)
== END 2024-07-16 20:35 | disposition home or self-care (01) ==
PROVIDERS: Emergency Provider Emergency Medicine; PCP Family Medicine
DX: K62.5 Hemorrhage of anus and rectum (principal); R51.9 Headache, unspecified; R42 Dizziness and giddiness; E11.9 Type 2 diabetes mellitus without complications; I10 Essential (primary) hypertension; E78.5 Hyperlipidemia, unspecified; K74.60 Unspecified cirrhosis of liver; K27.9 Peptic ulcer, site unspecified, unspecified as acute or chronic, without hemorrhage or perforation; R00.1 Bradycardia, unspecified; Z79.84 Long term (current) use of oral hypoglycemic drugs; Z79.85 Long-term (current) use of injectable non-insulin antidiabetic drugs
CPT/HCPCS: 70450; 70496; 70498; 74174; 80053; 81001; 82140; 83605; 83690; 83735; 83880; 84484; 85025; 85610; 85730; 93005; 96365; 96375; 99285; J0696; J0780; J1200; J1885; J3475; J7030; Q9967

== ENCOUNTER 2025-02-21 07:50 | Outpatient (CLI) | payer MEDICARE, SELFPAY ==
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
[2025-02-21 08:19] LABS: Blood Urea Nitrogen 12 mg/dl (7-17); Estimated Glomerular Filt Rate 85 ml/min (>60); GFR (African American) 103 ML/MIN (>60)
[2025-02-21] MEDS: SODIUM CHLORIDE 0.9% 10ML SYR (RAD ONLY) 10 ML IV (08:56)
[2025-02-21] MEDS: GADOTERIDOL INJ 20ML SYRINGE 20 ML IV (08:57)
[2025-02-21] MEDS: GADOTERIDOL INJ 10ML SYRINGE 6 ML IV (08:57)
== END 2025-02-21 23:59 | disposition home or self-care (01) ==
LOC: RAD 07:52
PROVIDERS: PCP Family Medicine; Visit Provider Family Medicine
DX: M54.16 Radiculopathy, lumbar region (principal); M79.605 Pain in left leg; M25.552 Pain in left hip; M54.9 Dorsalgia, unspecified; G89.29 Other chronic pain
CPT/HCPCS: 36415; 72158; 82565; 84520; A9576

== ENCOUNTER 2025-04-18 09:38 | Outpatient (CLI) | payer MEDICARE, MEDICAID, SELFPAY ==
[2025-04-18 18:08] LABS: Basophils # 0.1 K/mm3 (0-0.2); Basophils % 0.8 % (0.1-2.0); Eosinophils # 0.2 Kmm3 (0.0-0.4); Eosinophils % 1.8 % (0.1-12.0); Hematocrit 47.8 % (37.0-47.0); Hemoglobin 15.3 g/dL (12.2-16.2); Immature Granulocytes # 0.03 10^3uL; Immature Granulocytes % 0.3 %; Lymphocytes # 2.6 K/mm3 (0.7-4.5); Lymphocytes % 24.2 % (10-50); Mean Corpuscular Hemoglobin 28.4 pg (27.0-31.2); Mean Corpuscular Volume 88.8 fl (81-99); Mean Platelet Volume 10.4 fl (7.4-10.4); Monocytes # 0.7 K/mm3 (0.1-1.0); Monocytes % 6.8 % (1.7-9.3); Neutrophils # 7.1 K/mm3 (1.8-7.8); Neutrophils % 66.1 % (37.0-80.0); Nucleated Red Blood Cells # 0 10^3/uL; Nucleated Red Blood Cells % 0 %; Platelet Count 198 K/mm3 (142-424); Red Blood Count 5.38 M/mm3 (4.20-5.40); Red Cell Distribution Width 14.6 % (11.5-17.5); Red Cell Distribution Width-SD 47.6 fL; White Blood Count 10.7 K/mm3 (4.8-10.8)
[2025-04-18 19:13] LABS: Alanine Aminotransferase 19 U/L (12-78); Albumin Level 3.7 g/dl (3.5-5.0); Albumin/Globulin Ratio 1.2 (1.1-1.8); Alkaline Phosphatase 110 U/L (38-126); Anion Gap 8.8 mEq/L (5-15); Aspartate Amino Transferase 21 U/L (14-36); Bilirubin,Total 0.5 mg/dl (0.2-1.3); Blood Urea Nitrogen 11 mg/dl (7-17); Calcium 8.7 mg/dl (8.4-10.2); Carbon Dioxide 25 mmol/L (22.0-30.0); Chloride 109 mmol/L (98-107); Chol/HDL Ratio 4.1 (1-3.5); Cholesterol 156 mg/dl (140-200); Estimated Glomerular Filt Rate 126 ml/min (>60); GFR (African American) 152 ML/MIN (>60); Globulin 3.2 g/dL (1.3-3.2); Glucose 80 mg/dl (74-100); HDL Cholesterol 38 mg/dl (40-60); Potassium 3.8 mmoL/L (3.5-5.1); Sodium 139 mmol/L (136-145); Total Protein,Serum 6.9 g/dl (6.3-8.2); Triglycerides 78 mg/dl (30-150); VLDL Cholesterol 16 mg/dL (0-40)
[2025-04-18 19:42] LABS: Thyroid Stimulating Hormone 0.75 uIU/mL (0.465-4.68)
[2025-04-18 20:04] LABS: HIV Combo NEGATIVE (Negative)
[2025-04-18 20:11] LABS: Hepatitis C Ab Qual. W/ RFX NEGATIVE (Negative)
== END 2025-04-18 23:59 | disposition home or self-care (01) ==
LOC: LAB.DROPOF 04-20 09:40
PROVIDERS: PCP Family Medicine; Visit Provider Family Medicine
DX: E11.9 Type 2 diabetes mellitus without complications (principal)
CPT/HCPCS: 80053; 80061; 84443; 85025; 86803; 87389

== ENCOUNTER 2025-06-26 06:50 | Outpatient (CLI) | payer MEDICARE, MEDICAID, SELFPAY ==
--- OUTSIDE RECORDS SUMMARY | 2025-06-26 06:53 | XMS_ITS | Clinical Summary ---
Author Organization [facility] Address [address] [place] [address] Phone Care Team Providers Care Bolter Helper Name Role Phone Mario Gibson MD Primary Care Provider [phone] Allergies No known active allergies Medications No known medications Active Problems No known active problems Social History Tobacco Use Types Packs/Day Years Used Date Smoking Tobacco: Every Day Cigarettes 2 33 Smokeless Tobacco: Never Tobacco Cessation:Ready to Q uit: No Alcohol Use Standard Drinks/Week Comments Not Asked 0 (1 standard drink = 0.6 oz pur e alcohol) Comments Unknown Sex and Gender Information Value Date Recorded Sex Assigned at Not on file Legal Sex Female 7:24 AM EDT Gender Identity Not on file Sexual Orientation Not on file Obstetrics History Last Filed Vital Signs Vital Sign Reading Time Taken Comments Blood Pressure 130/80 12/18/2013 9:33 AM EST Pulse 72 12/18/2013 9:33 AM EST Temperature 37.1 C (98.7 F) 12/18/2013 9:33 AM EST Respiratory Rate 12 12/18/2013 9:33 AM EST Oxygen Saturation - - Inhaled Oxygen Concentration - - Weight 139.7 kg (308 lb) 12/18/2013 9:33 AM EST Height 172.7 cm (5' 8 ) 12/18/2013 9:33 AM EST Body Mass Index 46.83 12/18/2013 9:33 AM EST Plan of Treatment Health Maintenance Due Date Last Done Comments Annual Wellness Exam 1967 Hepatitis C Screening 1982 DTaP/TDaP/Td (1 - Tdap) 1983 Cologuard 2009 FIT 2009 Sigmoidoscopy 2009 Virtual Colonography 2009 Pneumococcal Vaccine 50+ (1 of 1 - PCV) 2014 Zoster (1 of 2) 2014 Colon Cancer Screening 06/25/2019 Colonoscopy 06/25/2019 06/25/2014 COVID-19 Vaccine ( - 2023-2 5 season) 2024 Influenza Vaccine (#1) 2025 Hepatitis B Vaccine Aged Out No longe r eligible based on patient's age to complete this topic Meningococcal B Vaccine Aged Out No l onger eligible based on patient's age to complete this topic Care Teams Bolter Helper Relationship Specialty Start Date End Date Mario Gibson MD PCP - General Family Medicine 12/06/13
--- OUTSIDE RECORDS SUMMARY | 2025-06-26 06:53 | XMS_ITS | Data Portability ---
Author Organization [place] - [facility] Address [address] [place] [address] Care Team Providers Care Energy Conservation Director Name Role Phone MARIO NUÑEZ Primary Care Provider Assessment Encounter Date Assessment Date Assessment LastModified by Organization Details LastModified Time 01/22/2017 01/22/2017 crackles noted at right base coarse rhinchi ant l=r cxr=underaera rakel at left base levaquin [id number] tussionex [id number] 60cc rtc prn sneus Not available 01/22/2017 12:11:02 11/17/2018 11/17/2018 discussed results in office today. discussed importance of setting weight loss goal with high fiber, low carb, low calorie diet. f/u 1 year. [email or web address] Not available 12/07/2018 21:22:31 Plan of Treatment Reminders Order Date Submit Date Provider Last Modified By Organization Details Last Modified Time Details Appointments None recorded. Lab glucose, fingerstick , blood 2017 018 [facility], [address] [place], [address], 8 16:51:40 glucose, fingerstick , blood 2016 017 [email or web address] [facility], [address] [place], [address], 7 16:58:01 lipid panel, serum 2016 017 KELLEY [facility], [address], [address], [place], [address], 7 07:37:12 rapid flu (A+B) 2016 017 sneus [facility], [address] [place], [address], 7 13:27:00 Referral None recorded. Procedures None recorded. Surgeries None recorded. Imaging XR, chest, 2 view 2016 017 sneus Not available 7 13:27:00 Medication Orders Depo-Medrol 80 mg/mL suspension for injection 2016 017 [email or web address] Not available 7 09:46:56 ceftriaxone 1 gram solution for injection 2016 017 [email or web address] Not available 7 09:47:00 Patient TargetsNo targets recorded. Patient Instructions Encounter Date Encounter Id Patient Instructions Last Modified By Organization Details Last Modified Time 10/20/2017 [id number] smoking cessatio n counseling, greater than 3 minutes up to 10 minutes* [email or web address] Not available 10/27/2017 08:34:11 Quitting Tobacco : Care Instructions Not available 10/20/2017 16:58:01 A healthy lifestyle: care instructions Not available 10/20/2017 16:58:01 11/17/2018 [id number] A healthy lifestyle: care instructions [email or web address] Not available 12/07/2018 21:20:57 cholesterol assessment* SARAH Not available 11/28/2018 16:51:23 Reason for Referral None Reported. Results Created Date Observation Date Name Description Value Unit Range Abnormal Flag Note LastModifiedBy Organization Detail LastModifiedTime 10/20/20 17 10/20/2017 gluco se, finge rstic k, blood Blood Glucose: mg/dl 100 Not Available [facility] [address] [place], [address], 10/20/2017 09:43:40 01/22/20 17 01/22/2017 rapid flu (A+B) Flu negati ve Not Available [facility] [address] [place], [address], 01/22/2017 11:56:55 01/22/20 17 01/22/2017 rapid flu (A+B) Type Both A & B Not Available [facility] [address] [place], [address], 01/22/2017 11:56:55 10/20/20 17 10/21/2017 lipid panel , serum cholesterol, total 143 mg/dL 100-19 9 Not Available [facility] ([facility]) [address] [place], [address], 10/21/2017 07:37:12 10/20/20 17 10/21/2017 lipid panel , serum triglyceride s 50 mg/dL 0-149 Not Available [facility] ([facility]) [address] [place], [address], 10/21/2017 07:37:12 10/20/20 17 10/21/2017 lipid panel , serum HDL cholesterol 37 mg/dL >39 below low normal Not Available [facility] ([facility]) [address] [place], [address], 10/21/2017 07:37:12 10/20/20 17 10/21/2017 lipid panel , serum VLDL cholesterol london 10 mg/dL 5-40 Not Available [facility] ([facility]) [address] [place], [address], 10/21/2017 07:37:12 10/20/20 17 10/21/2017 lipid panel , serum LDL cholesterol calc 96 mg/dL 0-99 Not Available [facility] ([facility]) [address] [place], [address], 10/21/2017 07:37:12 10/20/20 17 10/21/2017 lipid panel , serum 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 Not Available [facility] ([facility]) [address] [place], [address], 10/21/2017 07:37:12 11/28/20 18 11/28/2018 bill stero l asses sment * Cholesterol, HDL 031 Not Available [address] [place], [address], 11/17/2018 20:05:11 11/28/20 18 11/28/2018 bill stero l asses sment * Cholesterol, LDL 95 Not Available [address] [place], [address], 11/17/2018 20:05:11 11/28/20 18 11/28/2018 bill stero l asses sment * Cholesterol, Total 140 Not Available [address] [place], [address], 11/17/2018 20:05:11 11/28/20 18 11/28/2018 bill stero l asses sment * Triglyceride s 64 Not Available [address] [place], [address], 11/17/2018 20:05:11 11/28/20 18 11/28/2018 gluco se, finge rstic k, blood Blood Glucose: mg/dl 102 Not Available [address] [place], [address], 11/17/2018 20:04:22 11/28/20 18 11/28/2018 gluco se, finge rstic k, blood Reference Range (60-100) normal Not Available [address] [place], [address], 11/17/2018 20:04:22 01/22/20 17 01/22/2017 XR, chest , 2 view No observ ation record ed. sneus Not Available 2016 11:02:40 Result Notes None recorded. Problems No Known Problems Procedures Surgical History Date Name Laterality Status Provider Name and Address Organization Details Recorded Time Partial hysterectomy completed Marylin HAYNES - [facility] 01/22/2017 11:40:47 Appendectomy completed Marylin HAYNES - [facility] 01/22/2017 11:40:54 Imaging Results None recorded. Procedure Notes None recorded. Medical Equipment None Reported. Allergies No known drug allergies Medications Name Sig Start Date Stop Date Status Note LastModified by Organization Details LastModified Time Carafate 1 gram tablet take 1 tablet (1 gram) by oral route 4 times per day on an empty stomach 1 hour before meals and at bedtime for 30 days 09/13 completed Carafate 1 gram oral tablet;R ecorded Status: Recorded on: 05/14/20 14 10:20AM; Disconti nued Status: Disconti nued on: 09/13/20 15 9:51AM;U ser: neuss;Es t. Completi on: 11/10/20 14;Indic ation: Gastric Ulcer - (09.5319 00) Not Available Not Available Not Available Lotrisone 1 %-0.05 % topical cream apply bid to elbow 11/30 completed lotrison e cream;Re corded Status: Recorded on: 05/26/20 12 3:24PM;D iscontin ued Status: Disconti nued on: 11/30/19 14 11:55AM; User: glenn batesEstJessica Completshayy on: 06/05/20 12;Indic ation: - (-5);Marlen nted: 05/26/20 12 Not Available Not Available Not Available Tamiflu 75 mg capsule Take 1 capsule every day by oral route. 10/20 completed Not Available Not Available Not Available omeprazol e 40 mg capsule,d elayed release take 1 capsule by oral route daily 09/13 completed omeprazo le 40 mg oral capsule, delayed release( /JEAN CARLOS);R ecorded Status: Recorded on: 07/04/20 14 12:24PM; Disconti nued Status: Disconti nued on: 09/13/20 15 9:51AM;U ser: neuss;Es t. Completi on: 08/03/20 14;Indic ation: Gastric Ulcer - (6696 ) Not Available Not Available Not Available Depo-Medr ol 80 mg/mL suspensio n for injection Take 1.5 mL by injectio n route. 10/20 completed Not Available Not Available Not Available ceftriaxo ne 1 gram solution for injection Take 1 g by injectio n route. 10/20 completed Not Available Not Available Not Available fluoxetin e 10 mg capsule qam 11/04 completed fluoxeti ne 10 mg oral capsule; Recorded Status: Recorded on: 09/13/20 15 10:01AM; Disconti nued Status: Disconti nued on: 11/04/20 15 2:20PM;U ser: neuss;In dication : Major Depressi ve Disorder - (780) Not Available Not Available Not Available Bentyl 10 mg capsule take 1 capsule (10 mg) by oral route 3 times per day for 21 days 08/27 completed Bentyl 10 mg oral capsule; Recorded Status: Recorded on: 11/30/19 14 1:23PM;D iscontin ued Status: Disconti nued on: 08/27/20 15 3:31PM;U ser: grayn;Es t. Completi on: 12/21/19 14;Indic ation: Irritabl e Bowel Syndrome - (56);Prin rakel: 11/30/19 14 Not Available Not Available Not Available hydrochlo rothiazid e 25 mg tablet take 1 tablet (25 mg) by oral route once daily 10/20 completed hydrochl orothiaz kadie 25 mg oral tablet;R ecorded Status: Recorded on: 02/28/20 16 10:30AM; User: neuss;Es t. Completi on: 08/26/20 16;Indic ation: Edema - (2862 ) Not Available Not Available Not Available levofloxa alli 500 mg tablet take 1 tablet by oral route daily for 10 days 09/13 completed levoflox acin 500 mg oral tablet;R ecorded Status: Recorded on: 07/12/20 15 3:26PM;D iscontin ued Status: Disconti nued on: 09/13/20 15 9:51AM;U ser: neuss;Es t. Completi on: 07/22/20 15;Indic ation: Complica rakel [employer] e Infectio n - (12.6869 32) Not Available Not Available Not Available fluoxetin e 20 mg capsule qam 12/04 completed fluoxeti ne 20 mg oral capsule; Prescrib e Status: Prescrib ed on: 11/04/20 15 2:21PM;U ser: neuss;Es t. Completi on: 12/04/19 16;Indic ation: Major Depressi ve Disorder - (05.2962 00);Phar Nery fied: 11/04/20 15 2:21PM Not Available Not Available Not Available Bactrim DS 800 mg-160 mg tablet take 1 tablet by oral route every 12 hours for 5 days 05/14 completed Bactrim DS 800-160 mg oral tablet;R ecorded Status: Recorded on: 11/30/19 14 1:23PM;D iscontin ued Status: Disconti nued on: 05/14/20 14 9:33AM;U ser: grayn;Es t. Completi on: 12/05/19 14;Indic ation: Bacteria l Urinary Tract Infectio n - (10.5990 04);Prin rakel: 11/30/19 14 Not Available Not Available Not Available hydrochlo rothiazid e qd 02/27 completed hctz 25;Recor ded Status: Recorded on: 02/28/20 16 9:44AM;D iscontin ued Status: Disconti nued on: 02/28/20 16 10:30AM; User: neuss;Es t. Completi on: 08/26/20 16;Indic ation: - (-5) Not Available Not Available Not Available Parafon Forte DSC one tid 11/30 completed parafon dsc 500 mg;Recor ded Status: Recorded on: 11/08/20 13 9:27PM;D iscontin ued Status: Disconti nued on: 11/30/19 14 11:55AM; User: anabel Est. Completi on: 11/18/20 13;Indic ation: pain - (-5) Not Available Not Available Not Available Septra DS 1 bid 11/30 completed septra ds;Recor ded Status: Recorded on: 06/02/20 12 1:19PM;D iscontin ued Status: Disconti nued on: 11/30/19 14 11:55AM; User: lita;Jody st. Completi on: 06/12/20 12;Print ed: 06/02/20 12 Not Available Not Available Not Available Mobic one daqily 11/30 completed mobic 15 mg.;Zeus rded Status: Recorded on: 11/08/20 13 9:27PM;D iscontin ued Status: Disconti nued on: 11/30/19 14 11:55AM; User: anabel EstJessica Completi on: 11/28/20 13;Indic ation: pain - (-5) Not Available Not Available Not Available Vitals Date Recorded Body weight Body temperature Heart rate Oxygen saturation Oxygen saturation in Arterial blood by Pulse oximetry Body height Body mass index (BMI) Respiratory rate Systolic And Diastolic Provider Name and Address Organization Details Last Updated DateTime 7 460190. 79 g 98.3 [degF] 60 /min 97 % 97 % 170.18 cm 41.2 kg/m2 18 /min 112/60 mm[Hg] Marylin Ramos [place] - [facility] 7 11:36:00 Date Recorded Body height Body mass index (BMI) Body weight Body temperature Respiratory rate Heart rate Oxygen saturation Oxygen saturation in Arterial blood by Pulse oximetry Systolic And Diastolic Provider Name and Address Organization Details Last Updated DateTime 7 170.18 cm 45.7 kg/m2 634881. 97 g 97.9 [degF] 18 /min 68 /min 96 % 96 % 120/70 mm[Hg] Shahida Kaylah [place] - [facility] 7 09:46:48 Date Recorded Body weight Body mass index (BMI) Body height Body temperature Heart rate Oxygen saturation Oxygen saturation in Arterial blood by Pulse oximetry Systolic And Diastolic Provider Name and Address Organization Details Last Updated DateTime 8 422068. 93 g 46.5 kg/m2 170.18 cm 98.3 [degF] 80 /min 95 % 95 % 128/78 mm[Hg] Lino Hooker [place] - [facility] 8 09:36:01 Social History Question Answer Notes LastModified by Organizat ion Details LastModified Time Tobacco Smoking Status Former Smoker Not Available [facility] 09/13/2020 03:13:30 What Type Of Diet Are You Following? REGULAR [id number] Information not available 09/13/2020 Which Illicit Or Recreational Drugs Have You Used? Never [id number] Information not available 09/13/2020 Hard Of Hearing Or Deaf In One Or Both Ears? No [email or web address] Information not available 01/22/2017 Legally Blind In One Or Both Eyes? No [email or web address] Information no t available 01/22/2017 Live Alone Or With Others? With Others [email or web address] Information not available 10/20/2017 What Was The Date Of Your Most Recent Tobacco Screening? 11/17/2018 [id number] Information not available 09/13/2020 What Is Your Relationship Status? [id number] Information not available 09/13/2020 Smoke Alarm In Home Yes [email or web address] Information not available 01/22/2017 Sex: Unknown Functional Status Question Answer Note LastModified by Organization D etails LastModified Time Are you currently employed? No [id number] Information not available 09/13/2020 Are you able to care for yourself independently? Yes [id number] Information not available 09/13/2020 What is your occupation? [employer] [email or web address] Information not available 10/20/2017 What is your exercise level? None [id number] Information not available 09/13/2020 Mental Status None recorded. Family History Relationship Description Onset Age of this Age Resolved Age Notes LastModified by Organization Details LastModified Time Mother Alzheimer's disease [email or web address] Not available 2016 11:38:25 Mother Diabetes mellitus [email or web address] Not available 2016 11:38:43 Mother Hypertensive disorder [email or web address] Not available 2016 11:39:00 Mother Coronary artery bypass graft [email or web address] Not available 11:39:21 Maternal Grandmother Diabetes mellitus [email or web address] Not available 2016 11:38:43 Father Hypertensive disorder Not available 2016 11:39:00 Father Myocardial infarction [email or web address] Not available 01/22 11:39:43 Maternal Uncle Parkinson's disease [email or web address] Not available 2016 11:39:33 Medical History No medical history recorded. Gynecological History Statement/Question Response Menses Monthly N Date of Last Pap Smear Most Recent Mammogram Obstetrics History GPAL:G 0 P 0 0 0 0 Immunizations Vaccine Type Date Status Note Provider Name and Address Organization Details Recorded Time Influenza, split virus, quadrivalent, preservative 10/20/20 17 cancelled patient objection Not Available [facility] 12/16/2019 03:54:47 Past Encounters Encounter ID Performer Location Encounter Start Date Encounter Closed Date Diagnosis/Indication Diagnosis SNOMED-CT Code Diagnosis ICD10 Code Diagnosis Note [id number] [facility] [address] [place] [address] 05/26/2012 00:00:00 [id number] [facility] [address] [place] [address] 11/30/2013 00:00:00 [id number] [facility] [address] [place] [address] 05/14/2014 00:00:00 [id number] [facility] [address] [place] [address] 01/30/2015 00:00:00 [id number] [facility] [address] [place] [address] 07/12/2015 00:00:00 [id number] [facility] [address] [place] [address] 07/19/2015 00:00:00 [id number] [facility] [address] [place] [address] 08/27/2015 00:00:00 [id number] [facility] [address] [place] [address] 09/13/2015 00:00:00 [id number] [facility] [address] [place] [address] 11/11/2015 00:00:00 [id number] [facility] [address] [place] [address] 02/28/2016 00:00:00 [id number] Mario Nuñez MD [address] [place] [address] 01/22/2017 10:46:23 01/22/2017 13:05:11 Cough 25155532 R05 Influenza- like illness 51744724 B34.9 Acute uppe r respiratory infection 03920250 J06.9 [id number] Emily Alejo [address] [place] [address] 10/20/2017 09:28:55 10/20/2017 11:09:53 General examination of patient 461373012 Z00.00 Active or passive immunization 643596566 Z23 Nicotine dependence 5629 4008 F17.200 Body mass index 40+ - severely obese 285134846 Z68.42 Hyperlipid emia screening 695619897 Z13.682 [id number] Katherine Rangel [address] [place] [address] 11/17/2018 09:23:48 11/17/2018 13:51:15 General examination of patient 341815724 Z00.00 Exercises education, guidance, and counseling 014082069 Z71.82 Dietary ma nagement surveillance 464309519 Z71.3 Body mass index 40+ - severely obese 491145502 Z68.42 Hyperlipid emia screening 425159199 Z13.220 Health Concerns Section Related Observation LastModified by Organization Detai ls LastModified Time None Recorded Concern Status LastModified by Organization Details LastModified Time None Recorded Advance Directives Directive None Recorded Payers Insurance Date Sequence Insurance Name Policy Number Policy Fiore Covered Member ID Fiore Member ID Guarantor Name 11/26/2018 1 [employer] [id number] Ruth Michelle [id number] Ruth Michelle 11/17/2018 1 [facility] [id number] Ruth Michelle [id number] Ruth Michelle OBGyn Episode No OBEpisode recorded.
--- OUTSIDE RECORDS SUMMARY | 2025-06-26 06:53 | XMS_ITS | Data Portability ---
Author Organization [place] - [facility], [facility] Address [address] [place] [address] Care Team Providers Care Flight Attendant Name Role Phone FREDTONIE Restrepo Primary Care Provider Assessment No assessment recorded. Plan of Treatment Reminders Order Date Submit Date Provider Last Modified By Organization Details Last Modified Time Details Appointments OV EST 10 2024 10:30A M Haja Hartman MD Not available Not available Not available Lab afp (alpha-fe toprotein ) tumor marker, serum or plasma [address] (Registration ), [address], [place], [address], 04/17/2025 12:40:34 PT/INR 2024 025 [facility] (Registration ), [place], [address], 04/04/2025 10:59:54 CBC w/ auto diff 2024 025 [facility] (Registration ), [place], [address], 04/04/2025 10:48:11 hepatic function panel, serum 2024 025 [facility] (Registration ), [place], [address], 04/11/2025 04:11:28 BMP, serum or plasma 2024 025 [email or web address] [facility] (Registration ), [address], [place], [address], 04/17/2025 12:40:54 afp (alpha-fe toprotein ) tumor marker, serum or plasma 2023 024 [email or web address] [facility] (Registration ), [address], [place], [address], 08/03/2024 08:37:01 CMP, serum or plasma 2023 024 [facility] (Registration ), [address], [place], [address], 07/28/2024 05:29:30 PT/INR [email or web address] [place] [address] (Registration ), [address], [place], [address], 08/10/2024 14:33:48 afp (alpha-fe toprotein ) tumor marker, serum or plasma 2023 [email or web address] [place] [address] (Registration ), [address], [place], [address], 02/21/2024 15:52:22 CMP, serum or plasma 2023 024 [facility] (Registration ), [address], [place], [address], 01/16/2024 10:37:17 afp (alpha-fe toprotein ) tumor marker, serum or plasma 2023 [email or web address] [place] [address] (Registration ), [address], [place], [address], 02/21/2024 15:52:22 PT/INR 2023 024 SARAH [facility] (Registration ), [address], [place], [address], 01/14/2024 15:38:18 CBC 2023 024 [email or web address] [facility] (Registration ), [address], [place], [address], 02/21/2024 15:52:22 afp (alpha-fe toprotein ) tumor marker, serum or plasma 2022 023 [email or web address] [facility] (Registration ), [address], [place], [address], 07/08/2023 14:00:57 Referral speech therapy referral 2023 024 [email or web address] [facility], [address] [place] [address] , Located On The Lower Level Of [facility], [place], [address], 11/17/2024 10:42:00 Procedures colonosco py procedure (PROC) - PHYSICIAN ORDERS 1. Ensure patient is NPO and bowel prep complete. 0.9% normal saline @kvo preferabl y in right arm; IV patent to gravity. 3. Verify consent. Colonosco py with possible biopsy with possible polypecto my. 4. On-Call to Endoscopy . 5. If prep not clear, give large volume enema and report results. 6. Draw pt/inr if patient on Coumadin Hold 2023 024 [email or web address] [facility]), [address], [place], [address], 08/10/2024 14:33:36 esophagog astroduod enoscopy with biopsy (PROC) - PHYSICIAN ORDERS 1. Ensure patient is NPO. 0.9% normal saline @kvo preferabl y in right arm; IV patent to gravity. 3. verify consent. EGD with possible biopsy with possible dilation. 4. On-Call to Endoscopy . 5. Draw pt/inr if patient on Coumadin Hold 2023 024 [email or web address] [facility] (Outpatient Surgery), [address], [place], [address], 02/21/2024 15:36:51 esophagog astroduod enoscopy with biopsy (PROC) - PHYSICIAN ORDERS 1. Ensure patient is NPO. 0.9% normal saline @kvo preferabl y in right arm; IV patent to gravity. 3. verify consent. EGD with possible biopsy with possible dilation. 4. On-Call to Endoscopy . 5. Draw pt/inr if patient on Coumadin Hold 2022 023 ryland [facility] (Outpatient Surgery), [address], [place], [address], 08/09/2023 11:52:52 Surgeries None recorded. Imaging US, liver 2024 025 SARAH [facility] (Centralized Scheduling), [address], [place], [address], 04/06/2025 12:55:39 US, liver 2023 024 [facility]AH [facility] (Centralized Scheduling), [address], [place], [address], 07/19/2024 10:46:12 US, liver 2023 024 SARAH [facility] (Centralized Scheduling), [address], [place], [address], 01/21/2024 10:13:06 US, liver 2022 023 SARAH [facility] (Centralized Scheduling), [address], [place], [address], 07/20/2023 14:16:19 Medication Orders Golytely 236 gram-22.7 4 gram-6.74 gram-5.86 gram oral solution 2023 024 [email or web address], [address], [address], [place], [address], 04/04/2025 09:43:37 Patient TargetsNo targets recorded. Patient Instructions Encounter Date Encounter Id Patient Instructions Last Modified By Organization Details Last Modified Time 07/10/2024 [id number] The indications, technique, alternatives, and potential risks and complications of planned procedure were discussed with the patient including, but not limited to bleeding, perforation, missed lesions, and anesthesia complications. The patient understands and wishes to proceed and has given informed consent. Written information provided to the patient. [email or web address] Not available 07/10/2024 13:22:30 Reason for Referral Referring Physician: Haja Hartman, Gastroenterology, Encounter Date: 07/10/2024 Results Created Date Observation Date Name Description Value Unit Range Abnormal Flag Note LastModifiedBy Organization Detail LastModifiedTime 06/29/2006/29/2023 GAMMA GLUTA MYL TRANS PEPTI DASE note SEE NOTE Order ing Provi thais: Froilan luque MD Not Available [address] , [place], [address], 06/29/2023 11:53:28 06/29/20 23 06/29/2023 GAMMA GLUTA MYL TRANS PEPTI DASE gamma glutamyl transpeptida se 50 U/L 5-55 normal Not Available [address] , [place], [address], 06/29/2023 11:53:28 06/29/20 23 06/29/2023 GAMMA GLUTA MYL TRANS PEPTI DASE performing lab SEE NOTE ML - [facility] [address] [address] Not Available [address] , [place], [address], 06/29/2023 11:53:28 07/06/20 23 07/06/2023 ALPHA FETOP ROTEI N TUMOR MARKE R note See Note Order ing Provi thais: Froilan luque MD Not Available [address] , [place], [address], 07/07/2023 09:15:29 07/06/20 23 07/06/2023 ALPHA FETOP ROTEI N TUMOR MARKE R alpha fetoprotein tumor marker 3.3 NG/mL 0.0-9. 2 Keo Diagn ostic s Elect keo milum inesc ence Immun oassa y (ECLI A) . Value s obtai kalli with diffe rent assay metho ds or kits canno t be used inter storey eably . Resul ts canno t be inter prete d as absol [place] evide nce of the prese nce or absen ce of jeanine botello se. . This test is not inter preta ble in pregn ant femal es. Perfo rmed At: CB, [facility] [address] [place], [address] [place] [address] Kaye santamaria, PhD, Phone : [phone] Not Available [address] , [place], [address], 07/07/2023 09:15:29 07/06/20 23 07/06/2023 ALPHA FETOP ROTEI N TUMOR MARKE R performing lab see note LC2 - LAB[facility] RP CLIEN T# [id number] [place] [address] Not Available [address] , [place], [address], 07/07/2023 09:15:29 01/14/20 24 01/14/2024 CBC W/AUT O DIFFE RENTI AL note See Note Order ing Provi thais: Froilan luque MD Not Available [address] , [place], [address], 01/14/2024 15:28:41 01/14/20 24 01/14/2024 CBC W/AUT O DIFFE RENTI AL white blood cell 10.9 10e3/ uL 4.5-13 .0 normal Not Available [address], [place], [address], 01/14/2024 15:28:41 01/14/20 24 01/14/2024 CBC W/AUT O DIFFE RENTI AL red blood cell 5.45 10e6/ uL 3.80-5 .10 high Not Available [address], [place], [address], 01/14/2024 15:28:41 01/14/20 24 01/14/2024 CBC W/AUT O DIFFE RENTI AL hemoglobin 15.8 g/dL 11.5-1 5.3 high Not Available [address], [place], [address], 01/14/2024 15:28:41 01/14/20 24 01/14/2024 CBC W/AUT O DIFFE RENTI AL hematocrit 46.4 % 34.0-4 6.0 high Not Available [place] [address], [place], [address], 01/14/2024 15:28:41 01/14/20 24 01/14/2024 CBC W/AUT O DIFFE RENTI AL mean cell volume 85 fL 78.0-9 8.0 normal Not Available [place] [address], [place], [address], 01/14/2024 15:28:41 01/14/20 24 01/14/2024 CBC W/AUT O DIFFE RENTI AL mean cell HGB 29.0 pg 25.0-3 5.0 normal Not Available [address], [place], [address], 01/14/2024 15:28:41 01/14/20 24 01/14/2024 CBC W/AUT O DIFFE RENTI AL mean cell HGB concentratio n 34.1 g/dL 31.0-3 6.0 normal Not Available [address], [place], [address], 01/14/2024 15:28:41 01/14/20 24 01/14/2024 CBC W/AUT O DIFFE RENTI AL red cell distribution width 14.1 % 11.0-1 5.0 normal Not Available [address] Shawn[address] [place], [place], [address], 01/14/2024 15:28:41 01/14/20 24 01/14/2024 CBC W/AUT O DIFFE RENTI AL platelet count 225 10e3/ uL 150-40 0 normal Not Available [address] [place], [place], [address], 01/14/2024 15:28:41 01/14/20 24 01/14/2024 CBC W/AUT O DIFFE RENTI AL immature granulocyte % 0 0-1 normal Not Available [address] [place], [place], [address], 01/14/2024 15:28:41 01/14/20 24 01/14/2024 CBC W/AUT O DIFFE RENTI AL neutrophil % 60 % 35-75 normal Not Available [place] [address], [place], [address], 01/14/2024 15:28:41 01/14/20 24 01/14/2024 CBC W/AUT O DIFFE RENTI AL lymphocyte % 31 % 10-50 normal Not Available [address], [place], [address], 01/14/2024 15:28:41 01/14/20 24 01/14/2024 CBC W/AUT O DIFFE RENTI AL monocyte % 6 % 0-15 normal Not Available [address] [place], [place], [address], 01/14/2024 15:28:41 01/14/20 24 01/14/2024 CBC W/AUT O DIFFE RENTI AL eosinophil % 2 % 0-5 normal Not Available [address], [place], [address], 01/14/2024 15:28:41 01/14/20 24 01/14/2024 CBC W/AUT O DIFFE RENTI AL basophil % 1 % 0-5 normal Not Available [place] [address], [place], [address], 01/14/2024 15:28:41 01/14/20 24 01/14/2024 CBC W/AUT O DIFFE RENTI AL immature granulocyte # 0.04 x1000 /uL 0-0.05 normal Not Available [address], [place], [address], 01/14/2024 15:28:41 01/14/20 24 01/14/2024 CBC W/AUT O DIFFE RENTI AL neutrophil # 6.57 x1000 /uL 1.50-8 .00 normal Not Available [place] [address], [place], [address], 01/14/2024 15:28:41 01/14/20 24 01/14/2024 CBC W/AUT O DIFFE RENTI AL lymphocyte # 3.34 x1000 /uL 1.20-5 .20 normal Not Available [address], [place], [address], 01/14/2024 15:28:41 01/14/20 24 01/14/2024 CBC W/AUT O DIFFE RENTI AL monocyte # 0.66 x1000 /uL 0.40-0 .90 normal Not Available [address], [place], [address], 01/14/2024 15:28:41 01/14/20 24 01/14/2024 CBC W/AUT O DIFFE RENTI AL eosinophil # 0.21 x1000 /uL 0.00-0 .50 normal Not Available [address], [place], [address], 01/14/2024 15:28:41 01/14/20 24 01/14/2024 CBC W/AUT O DIFFE RENTI AL basophil # 0.07 x1000 /uL 0.00-0 .30 normal Not Available [address], [place], [address], 01/14/2024 15:28:41 01/14/20 24 01/14/2024 CBC W/AUT O DIFFE RENTI AL NRBC automated 0.0 /100_ WBC Not Available [address], [place], [address], 01/14/2024 15:28:41 01/14/20 24 01/14/2024 CBC W/AUT O DIFFE RENTI AL performing lab see note - [facility] R [address] [place] [address] DRIVE [facility] [address] Not Available [address], [place], [address], 01/14/2024 15:28:41 01/14/20 24 01/14/2024 PROTH ROMBI N TIME note SEE NOTE Order ing Provi thais: Froilan luque MD Not Available [address] [place], [place], [address], 01/14/2024 15:38:18 01/14/20 24 01/14/2024 PROTH ROMBI N TIME prothrombin time patient 11.1 secon ds 9.4-11 .6 normal Not Available [address] [address], [place], [address], 01/14/2024 15:38:18 01/14/20 24 01/14/2024 HOUSTON Moody TIME internationa l normal ratio 1.0 0.9-1. 1 normal Recom bryanna d Thera peuti c Guide lines : INR Proph ylaxi s/krishna atmen t of Venou s Throm bosis , Pulmo nary Embol ism ..... ..... ..... ..... 2.0-3 .0 Preve ntion of Syste josé miguel Embol ism ..... ..... . 2.0-3 .0 Tissu e Heart Valve , Valvu lar Heart Disea se. 2.0-3 .0 Atria l Fibri llati on ..... ..... ..... ..... ... 2.0-3 .0 Bilea flet mecha nical valve in aorti c posit ion 2.0-3 .0 Acute myoca rdial infar ction (to preve nt Syste josé miguel Embol ism). ..... ..... ..... ..... 2.5-3 .5 Mecha nical prost hetic valve s (high risk) ... 2.5-3 .5 Certa in patie nts with throm bosis and the antip hosph olipi d syndr ome ..... ..... ... >2.0- 3.0 Not Available [address] , [place], [address], 01/14/2024 15:38:18 01/14/20 24 01/14/2024 HOUSTON Moody TIME performing lab SEE NOTE CIPRIANO - [facility] MED [facility] R [address] [facility] [address] Not Available [address] [address], [place], [address], 01/14/2024 15:38:18 01/14/20 24 01/14/2024 COMP METAB OLIC PANEL note SEE NOTE Order ing Provi thais: Froilan luque MD Not Available [address] [address], [place], [address], 01/16/2024 10:37:17 01/14/20 24 01/14/2024 COMP METAB OLIC PANEL sodium 142 mmol/ L 136-14 5 normal Not Available [address] [address], [place], [address], 01/16/2024 10:37:17 01/14/20 24 01/14/2024 COMP METAB OLIC PANEL potassium 3.9 mmol/ L 3.5-5. 1 normal Not Available [address] [address], [place], [address], 01/16/2024 10:37:17 01/14/20 24 01/14/2024 COMP METAB OLIC PANEL chloride 106 mmol/ L 98-107 normal Not Available [address], [place], [address], 01/16/2024 10:37:17 01/14/20 24 01/14/2024 COMP METAB OLIC PANEL carbon dioxide 25 mmol/ L 24-33 normal Not Available [address], [place], [address], 01/16/2024 10:37:17 01/14/20 24 01/14/2024 COMP METAB OLIC PANEL anion gap 14.9 mmol/ L 10-20 normal Not Available [address] [address], [place], [address], 01/16/2024 10:37:17 01/14/20 24 01/14/2024 COMP METAB OLIC PANEL glucose 83 mg/dL 70-99 normal Not Available [address] [address], [place], [address], 01/16/2024 10:37:17 01/14/20 24 01/14/2024 COMP METAB OLIC PANEL blood urea nitrogen 10 mg/dL 7-18 normal Not Available [address] , [place], [address], 01/16/2024 10:37:17 01/14/20 24 01/14/2024 COMP METAB OLIC PANEL creatinine 0.73 mg/dL 0.55-1 .02 normal Not Available [address] [place], [address], 01/16/2024 10:37:17 01/14/20 24 01/14/2024 COMP METAB OLIC PANEL GFR (estimated) 95 mL/mi n >60 normal [IM ARIEL NT]: The 2020 CKD-E PI equat ion is now the recom bryanna d stand osmany. This versi on does not inclu de race, as do the 2008 and 2011 CKD-E PI creat inine and creat inine -cyst atin C equat ions. Plelucinda e note that the eGFR now repor rakel is gener ated by the new 2020 CKD-E PI equat ion, which decre ases the eGFR for black s by up to 10% and incre ases the eGFR for non-b lacks by up to 10% in steve rison to the old equat ion. To steve re a legac y eGFR to a curre nt value , a 2008 CKD-E PI calcu lator is easil y searc hable on the inter net. Calcu lated GFR: This calcu lated GFR is advoc ated by the Natio nal Kidne y Found ation to be used as an indic ator of Chron ic Kidne y Disea se (CKD) . 5 Stage s of Chron ic Kidne y Disea se. Stage 1 90 mL/mi n or more Healt hy kidne ys or Kidne y damag e with terry l or high GFR detai ls Stage 2 60 to 89 mL/mi n Kidne y damag e and mild decre ase in GFR detai ls Stage 3 30 to 59 mL/mi n Moder ate decre ase in GFR detai ls Stage 4 15 to 29 mL/mi n Sever e decre ase in GFR detai ls Stage 5 Less than 15 mL/mi n On dialy sis or Kidne y failu re Patie nt's clini london statu s must be consi dered for the care of your patie nt. Not Available [address] , [place], [address], 01/16/2024 10:37:17 01/14/20 24 01/14/2024 COMP METAB OLIC PANEL BUN/creatini ne ratio 13 12-20 normal Not Available [address] , [place], [address], 01/16/2024 10:37:17 01/14/20 24 01/14/2024 COMP METAB OLIC PANEL total protein 7.3 g/dL 6.4-8. 2 normal Not Available [address] , [place], [address], 01/16/2024 10:37:17 01/14/20 24 01/14/2024 COMP METAB OLIC PANEL albumin 3.0 g/dL 3.4-5. 0 low Not Available [address] [address], [place], [address], 01/16/2024 10:37:17 01/14/20 24 01/14/2024 COMP METAB OLIC PANEL globulin 4.3 g/dL 1.5-4. 0 high Not Available [address] [place], [address], 01/16/2024 10:37:17 01/14/20 24 01/14/2024 COMP METAB OLIC PANEL albumin/glob ulin ratio 0.7 0.5-2. 0 normal Not Available [address] [place], [address], 01/16/2024 10:37:17 01/14/20 24 01/14/2024 COMP METAB OLIC PANEL calcium 8.5 mg/dL 8.5-10 .1 normal Not Available [address] , [place], [address], 01/16/2024 10:37:17 01/14/20 24 01/14/2024 COMP METAB OLIC PANEL osmolality serum calculated 280 mOsm/ kg 272-28 8 normal Not Available [address] , [place], [address], 01/16/2024 10:37:17 01/14/20 24 01/14/2024 COMP METAB OLIC PANEL bilirubin total 0.5 mg/dL 0.2-1. 0 normal Use of this assay is not recom bryanna d for patie nts under going treat ment with Eltro mbopa g due to the poten tial for false ly eleva rakel resul ts. Not Available [address] , [place], [address], 01/16/2024 10:37:17 01/14/20 24 01/14/2024 COMP METAB OLIC PANEL SGOT/AST 15 U/L 15-37 normal Not Available [address], [place], [address], 01/16/2024 10:37:17 01/14/20 24 01/14/2024 COMP METAB OLIC PANEL SGPT/ALT 22 U/L 14-59 normal Not Available [address] , [place], [address], 01/16/2024 10:37:17 01/14/20 24 01/14/2024 COMP METAB OLIC PANEL alkaline phosphatase total 110 U/L 46-116 normal Not Available [address] , [place], [address], 01/16/2024 10:37:17 01/14/20 24 01/14/2024 COMP METAB OLIC PANEL performing lab SEE NOTE ML - [facility] [address] [place] [address] Not Available [address] , [place], [address], 01/16/2024 10:37:17 01/14/20 24 01/14/2024 ALPHA FETOP ROTEI N TUMOR MARKE R note See Note Order ing Provi thais: Froilan luque MD Not Available [address] , [place], [address], 01/16/2024 10:37:18 01/14/20 24 01/14/2024 ALPHA FETOP ROTEI N TUMOR MARKE R alpha fetoprotein tumor marker 3.3 NG/mL 0.0-9. 2 Keo Diagn ostic s Elect keo milum inesc ence Immun oassa y (ECLI A) . Value s obtai kalli with diffe rent assay metho ds or kits canno t be used inter storey eably . Resul ts canno t be inter prete d as absol [place] evide nce of the prese nce or absen ce of jeanine botello se. . This test is not inter preta ble in pregn ant femal es. Perfo rmed At: CB, [facility] [address] [facility], [place], [address] Darien santamaria, PhD, Phone : [phone] Not Available [address] , [place], [address], 01/16/2024 10:37:18 01/14/20 24 01/14/2024 ALPHA FETOP ROTEI N TUMOR MARKE R performing lab see note LC2 - [facility] CLIEN T# [id number] [place] [address] Not Available [address] , [place], [address], 01/16/2024 10:37:18 01/18/20 24 01/18/2024 GLUCO SE POINT OF CARE note See Note Order ing Provi thais: Froilan luque MD Not Available [address] , [place], [address], 01/18/2024 12:22:21 01/18/20 24 01/18/2024 GLUCO SE POINT OF CARE glucose point of care 79 mg/dL 70-99 normal Not Available [address] , [place], [address], 01/18/2024 12:22:21 01/18/20 24 01/18/2024 GLUCO SE POINT OF CARE performing lab see note [place] [address] [place] [address] Not Available [address] , [place], [address], 01/18/2024 12:22:21 01/18/20 24 01/18/2024 GLUCO SE POINT OF CARE note See Note Order ing Provi thais: Froilan luque MD Not Available [address] , [place], [address], 01/18/2024 13:03:31 01/18/20 24 01/18/2024 GLUCO SE POINT OF CARE glucose point of care 62 mg/dL 70-99 low Not Available [address] , [place], [address], 01/18/2024 13:03:31 01/18/20 24 01/18/2024 GLUCO SE POINT OF CARE performing lab see note [place] [address] [place] [address] Not Available [address] , [place], [address], 01/18/2024 13:03:31 01/18/20 24 01/18/2024 GLUCO SE POINT OF CARE note See Note Order ing Provi thais: Froilan luque MD Not Available [address] , [place], [address], 01/18/2024 13:09:13 01/18/20 24 01/18/2024 GLUCO SE POINT OF CARE glucose point of care 90 mg/dL 70-99 normal Not Available [address] , [place], [address], 01/18/2024 13:09:13 01/18/20 24 01/18/2024 GLUCO SE POINT OF CARE performing lab see note MWPO - [address] [facility] [address] Not Available [address] [place], [address], 01/18/2024 13:09:13 07/10/20 24 07/10/2024 COMP METAB OLIC PANEL note SEE NOTE Order ing Provi thais: Froilan luque MD Not Available [address] , [place], [address], 07/28/2024 05:29:30 07/10/20 24 07/10/2024 COMP METAB OLIC PANEL sodium 142 mmol/ L 136-14 5 normal Not Available [address] [place], [address], 07/28/2024 05:29:30 07/10/20 24 07/10/2024 COMP METAB OLIC PANEL potassium 4.3 mmol/ L 3.5-5. 1 normal Not Available [address] [place], [address], 07/28/2024 05:29:30 07/10/20 24 07/10/2024 COMP METAB OLIC PANEL chloride 105 mmol/ L 98-107 normal Not Available [address] [place], [address], 07/28/2024 05:29:30 07/10/20 24 07/10/2024 COMP METAB OLIC PANEL carbon dioxide 29 mmol/ L 24-33 normal Not Available [address] , [place], [address], 07/28/2024 05:29:30 07/10/20 24 07/10/2024 COMP METAB OLIC PANEL anion gap 12.3 mmol/ L 10-20 normal Not Available [address] , [place], [address], 07/28/2024 05:29:30 07/10/20 24 07/10/2024 COMP METAB OLIC PANEL glucose 88 mg/dL 70-99 normal Not Available [address] , [place], [address], 07/28/2024 05:29:30 07/10/20 24 07/10/2024 COMP METAB OLIC PANEL blood urea nitrogen 16 mg/dL 7-18 normal Not Available [address] , [place], [address], 07/28/2024 05:29:30 07/10/20 24 07/10/2024 COMP METAB OLIC PANEL creatinine 0.78 mg/dL 0.55-1 .02 normal Not Available [address] , [place], [address], 07/28/2024 05:29:30 07/10/20 24 07/10/2024 COMP METAB OLIC PANEL GFR (estimated) 87 mL/mi n >60 normal [IM ARIEL NT]: The 2020 CKD-E PI equat ion is now the recom bryanna d stand osmany. This versi on does not inclu de race, as do the 2008 and 2011 CKD-E PI creat inine and creat inine -cyst atin C equat ions. Pleas e note that the eGFR now repor rakel is gener ated by the new 2020 CKD-E PI equat ion, which decre ases the eGFR for black s by up to 10% and incre ases the eGFR for non-b lacks by up to 10% in steve rison to the old equat ion. To steve re a legac y eGFR to a curre nt value , a 2008 CKD-E PI calcu lator is easil y searc hable on the inter net. Calcu lated GFR: This calcu lated GFR is advoc ated by the Natio nal Kidne y Found ation to be used as an indic ator of Chron ic Kidne y Disea se (CKD) . 5 Stage s of Chron ic Kidne y Disea se. Stage 1 90 mL/mi n or more Healt hy kidne ys or Kidne y damag e with terry l or high GFR detai ls Stage 2 60 to 89 mL/mi n Kidne y damag e and mild decre ase in GFR detai ls Stage 3 30 to 59 mL/mi n Moder ate decre ase in GFR detai ls Stage 4 15 to 29 mL/mi n Sever e decre ase in GFR detai ls Stage 5 Less than 15 mL/mi n On dialy sis or Kidne y failu re Patie nt's clini london statu s must be consi dered for the care of your patie nt. Not Available [address] [place], [address], 07/28/2024 05:29:30 07/10/20 24 07/10/2024 COMP METAB OLIC PANEL BUN/creatini ne ratio 20 12-20 normal Not Available [address] [place], [address], 07/28/2024 05:29:30 07/10/20 24 07/10/2024 COMP METAB OLIC PANEL total protein 6.8 g/dL 6.4-8. 2 normal Not Available [address] [place], [address], 07/28/2024 05:29:30 07/10/20 24 07/10/2024 COMP METAB OLIC PANEL albumin 3.1 g/dL 3.4-5. 0 low Not Available [address] , [place], [address], 07/28/2024 05:29:30 07/10/20 24 07/10/2024 COMP METAB OLIC PANEL globulin 3.7 g/dL 1.5-4. 0 normal Not Available [address] , [place], [address], 07/28/2024 05:29:30 07/10/20 24 07/10/2024 COMP METAB OLIC PANEL albumin/glob ulin ratio 0.8 0.5-2. 0 normal Not Available [address] , [place], [address], 07/28/2024 05:29:30 07/10/20 24 07/10/2024 COMP METAB OLIC PANEL calcium 8.6 mg/dL 8.5-10 .1 normal Not Available [address] , [place], [address], 07/28/2024 05:29:30 07/10/20 24 07/10/2024 COMP METAB OLIC PANEL osmolality serum calculated 282 mOsm/ kg 272-28 8 normal Not Available [address] , [place], [address], 07/28/2024 05:29:30 07/10/20 24 07/10/2024 COMP METAB OLIC PANEL bilirubin total 0.5 mg/dL 0.2-1. 0 normal Use of this assay is not recom bryanna d for patie nts under going treat ment with Eltro mbopa g due to the poten tial for false ly eleva rakel resul ts. Not Available [address] [place], [address], 07/28/2024 05:29:30 07/10/20 24 07/10/2024 COMP METAB OLIC PANEL SGOT/AST 14 U/L 15-37 low Not Available [address] , [place], [address], 07/28/2024 05:29:30 07/10/20 24 07/10/2024 COMP METAB OLIC PANEL SGPT/ALT 17 U/L 14-59 normal Not Available [address] , [place], [address], 07/28/2024 05:29:30 07/10/20 24 07/10/2024 COMP METAB OLIC PANEL alkaline phosphatase total 111 U/L 46-116 normal Not Available [address] , [place], [address], 07/28/2024 05:29:30 07/10/20 24 07/10/2024 COMP METAB OLIC PANEL performing lab SEE NOTE - [address] [facility] [address] Not Available [address] , [place], [address], 07/28/2024 05:29:30 07/10/20 24 07/10/2024 ALPHA FETOP ROTEI N TUMOR MARKE R note See Note Order ing Provi thais: Froilan luque MD Not Available [address] , [place], [address], 07/28/2024 05:29:30 07/10/20 24 07/10/2024 ALPHA FETOP ROTEI N TUMOR MARKE R alpha fetoprotein tumor marker 3.1 PREVI OUS RESUL T: 3.3ng /mL ON 2023 AGE MALE FEMAL E 0-7 DAYS 0.0-7 5265. 8 0.0-7 5265. 8 8-30 DAYS 0.0-3 2556. 4 0.0-3 2556. 4 1 MONTH 0.0-1 747.8 0.0-1 600.3 2 MONTH S 0.0-3 91.1 0.0-5 50.0 3 MONTH S 0.0-2 25.8 0.0-3 39.9 4 MONTH S 0.0-2 30.6 0.0-2 30.6 5 MONTH S 0.0-1 18.0 0.0-2 34.0 6 MONTH S 0.0-9 7.2 0.0-9 7.2 7-11 MONTH S 0.0-6 0.3 0.0-6 0.3 1 YEAR 0.0-2 1.4 0.0-2 1.4 2 YEARS 0.0-9 .4 0.0-1 0.1 3-4 YEARS 0.0-5 .5 0.0-5 .5 5 YEARS 0.0-3 .6 0.0-4 .2 6-12 YEARS 0.0-3 .9 0.0-3 .9 13-17 YEARS 0.0-4 .3 0.0-4 .3 18-30 YEARS 0.0-5 .7 0.0-4 .7 31-50 YEARS 0.0-6 .9 0.0-6 .4 51-80 YEARS 0.0-8 .4 0.0-9 .2 >80 YEARS 0.0-6 .4 0.0-8 .7 KEO DIAGN OSTIC S ELECT KEO MILUM INESC ENCE IMMUN ASSAY (ECLI A) VALUE S OBTAI KALLI WITH DIFFE RENT ASSAY METHO DS OR KITS CANNO T BE USED INTER STOREY EABLY . RESUL TS CANNO T BE INTER PRETE D ABSOL CAPITAN GRANDE BAND EVIDE NCE OF THE PRESE NCE OR ABSEN CE OF JEANINE MARKSA SE. THIS TEST IS NOT INTER PRETA BLE IN PREGN ANT FEMAL ES. Not Available [address] , [place], [address], 07/28/2024 05:29:30 07/10/20 24 07/10/2024 ALPHA FETOP ROTEI N TUMOR MARKE R performing lab see note LC2 - LABCO RP CLIEN T# [id number] Lelia HAYNES [address] Not Available [address] , [place], [address], 07/28/2024 05:29:30 08/09/20 24 08/09/2024 GLUCO SE POINT OF CARE note See Note Order ing Provi thais: Froilan luque MD Not Available [address] , [place], [address], 08/09/2024 08:16:45 08/09/20 24 08/09/2024 GLUCO SE POINT OF CARE glucose point of care 85 mg/dL 70-99 normal Not Available [address] , [place], [address], 08/09/2024 08:16:45 08/09/20 24 08/09/2024 GLUCO SE POINT OF CARE performing lab see note [facility] [address] [place] [address] Not Available [address] , [place], [address], 08/09/2024 08:16:45 08/09/20 24 08/09/2024 GLUCO SE POINT OF CARE note See Note Order ing Provi thais: Froilan luque MD Not Available [address] , [place], [address], 08/09/2024 10:49:27 08/09/20 24 08/09/2024 GLUCO SE POINT OF CARE glucose point of care 81 mg/dL 70-99 normal Not Available [address] [place], [address], 08/09/2024 10:49:27 08/09/20 24 08/09/2024 GLUCO SE POINT OF CARE performing lab see note [facility] [address] [place] [address] Not Available [address] , [place], [address], 08/09/2024 10:49:27 04/04/2004/04/2025 CBC W/AUT O DIFFE RENTI AL note SEE NOTE Order ing Provi thais: Froilan luque MD Not Available [address] , [place], [address], 04/04/2025 10:48:11 04/04/20 25 04/04/2025 CBC W/AUT O DIFFE RENTI AL white blood cell 11.3 10e3/ uL 4.5-13 .0 normal Not Available [address] , [place], [address], 04/04/2025 10:48:11 04/04/20 25 04/04/2025 CBC W/AUT O DIFFE RENTI AL red blood cell 5.35 10e6/ uL 3.80-5 .10 high Not Available [address] , [place], [address], 04/04/2025 10:48:11 04/04/20 25 04/04/2025 CBC W/AUT O DIFFE RENTI AL hemoglobin 15.4 g/dL 11.5-1 5.3 high Not Available [address] , [place], [address], 04/04/2025 10:48:11 04/04/20 25 04/04/2025 CBC W/AUT O DIFFE RENTI AL hematocrit 45.5 % 34.0-4 6.0 normal Not Available [address] Shawna Foster, [place], [address], 04/04/2025 10:48:11 04/04/20 25 04/04/2025 CBC W/AUT O DIFFE RENTI AL mean cell volume 85 fL 78.0-9 8.0 normal Not Available [address] Shawna Foster, [place], [address], 04/04/2025 10:48:11 04/04/20 25 04/04/2025 CBC W/AUT O DIFFE RENTI AL mean cell HGB 28.8 pg 25.0-3 5.0 normal Not Available [address] Shawn[place] Foster, [place], [address], 04/04/2025 10:48:11 04/04/20 25 04/04/2025 CBC W/AUT O DIFFE RENTI AL mean cell HGB concentratio n 33.8 g/dL 31.0-3 6.0 normal Not Available [address] Shawna Foster, [place], [address], 04/04/2025 10:48:11 04/04/20 25 04/04/2025 CBC W/AUT O DIFFE RENTI AL red cell distribution width 14.4 % 11.0-1 5.0 normal Not Available [address] Shawn[place] Foster, [place], [address], 04/04/2025 10:48:11 04/04/20 25 04/04/2025 CBC W/AUT O DIFFE RENTI AL platelet count 180 10e3/ uL 150-40 0 normal Not Available [address] Shawna Foster, [place], [address], 04/04/2025 10:48:11 04/04/20 25 04/04/2025 CBC W/AUT O DIFFE RENTI AL immature granulocyte % 1 0-1 normal Not Available [address] Shawn[place] Foster, [place], [address], 04/04/2025 10:48:11 04/04/20 25 04/04/2025 CBC W/AUT O DIFFE RENTI AL neutrophil % 62 % 35-75 normal Not Available [address] Shawn[place] Foster, [place], [address], 04/04/2025 10:48:11 04/04/20 25 04/04/2025 CBC W/AUT O DIFFE RENTI AL lymphocyte % 29 % 10-50 normal Not Available [address] [place] Foster, [place], [address], 04/04/2025 10:48:11 04/04/20 25 04/04/2025 CBC W/AUT O DIFFE RENTI AL monocyte % 7 % 0-15 normal Not Available [address] [place] Foster, [place], [address], 04/04/2025 10:48:11 04/04/20 25 04/04/2025 CBC W/AUT O DIFFE RENTI AL eosinophil % 2 % 0-5 normal Not Available [address] [place] Foster, [place], [address], 04/04/2025 10:48:11 04/04/20 25 04/04/2025 CBC W/AUT O DIFFE RENTI AL basophil % 1 % 0-5 normal Not Available [address] [place] Foster, [place], [address], 04/04/2025 10:48:11 04/04/20 25 04/04/2025 CBC W/AUT O DIFFE RENTI AL immature granulocyte # 0.06 x1000 /uL 0-0.05 high Not Available [address] Shawn[place] Foster, [place], [address], 04/04/2025 10:48:11 04/04/2004/04/2025 CBC W/AUT O DIFFE RENTI AL neutrophil # 6.99 x1000 /uL 1.50-8 .00 normal Not Available [address] Shawna Foster, [place], [address], 04/04/2025 10:48:11 04/04/20 25 04/04/2025 CBC W/AUT O DIFFE RENTI AL lymphocyte # 3.24 x1000 /uL 1.20-5 .20 normal Not Available [address] Shawn[place] Foster, [place], [address], 04/04/2025 10:48:11 04/04/20 25 04/04/2025 CBC W/AUT O DIFFE RENTI AL monocyte # 0.74 x1000 /uL 0.40-0 .90 normal Not Available [address] , [place], [address], 04/04/2025 10:48:11 04/04/2004/04/2025 CBC W/AUT O DIFFE RENTI AL eosinophil # 0.17 x1000 /uL 0.00-0 .50 normal Not Available [address] , [place], [address], 04/04/2025 10:48:11 04/04/20 25 04/04/2025 CBC W/AUT O DIFFE RENTI AL basophil # 0.06 x1000 /uL 0.00-0 .30 normal Not Available [address] Shawn[place] Foster, [place], [address], 04/04/2025 10:48:11 04/04/20 25 04/04/2025 CBC W/AUT O DIFFE RENTI AL NRBC automated 0.0 /100_ WBC Not Available [address] Shawn[place] Foster, [place], [address], 04/04/2025 10:48:11 04/04/20 25 04/04/2025 CBC W/AUT O DIFFE RENTI AL performing lab SEE NOTE ML - [facility] R [address] [place] [address] DRIVE [facility] [address] Not Available [address] Shawna Foster, [place], [address], 04/04/2025 10:48:11 04/04/20 25 04/04/2025 PROTH ROMBI N TIME note SEE NOTE Order ing Provi thais: Froilan luque MD Not Available [address] , [place], [address], 04/04/2025 10:59:54 04/04/20 25 04/04/2025 PROTH ROMBI N TIME prothrombin time patient 11.0 secon ds 9.9-12 .1 normal Not Available [address] , [place], [address], 04/04/2025 10:59:54 04/04/20 25 04/04/2025 PROTH ROMBI N TIME internationa l normal ratio 1.0 0.9-1. 1 normal Recom bryanna d Thera peuti c Guide lines : INR Proph ylaxi s/krishna atmen t of Venou s Throm bosis , Pulmo nary Embol ism ..... ..... ..... ..... 2.0-3 .0 Preve ntion of Syste josé miguel Embol ism ..... ..... . 2.0-3 .0 Tissu e Heart Valve , Valvu lar Heart Disea se. 2.0-3 .0 Atria l Fibri llati on ..... ..... ..... ..... ... 2.0-3 .0 Bilea flet mecha nical valve in aorti c posit ion 2.0-3 .0 Acute myoca rdial infar ction (to preve nt Syste josé miguel Embol ism). ..... ..... ..... ..... 2.5-3 .5 Mecha nical prost hetic valve s (high risk) ... 2.5-3 .5 Certa in patie nts with throm bosis and the antip hosph olipi d syndr ome ..... ..... ... >2.0- 3.0 Not Available [address] , [place], [address], 04/04/2025 10:59:54 04/04/20 25 04/04/2025 [place] Moody TIME performing lab SEE NOTE - [facility] [address] [facility] [address] Not Available [address] , [place], [address], 04/04/2025 10:59:54 04/04/20 25 04/04/2025 COMP METAB OLIC PANEL note See Note Order ing Provi thais: Froilan luque MD Not Available [address] , [place], [address], 04/05/2025 14:11:59 04/04/20 25 04/04/2025 COMP METAB OLIC PANEL sodium 141 mmol/ L 136-14 5 normal Not Available [address] , [place], [address], 04/05/2025 14:11:59 04/04/20 25 04/04/2025 COMP METAB OLIC PANEL potassium 4.2 mmol/ L 3.5-5. 1 normal Not Available [address] , [place], [address], 04/05/2025 14:11:59 04/04/20 25 04/04/2025 COMP METAB OLIC PANEL chloride 105 mmol/ L 98-107 normal Not Available [address] , [place], [address], 04/05/2025 14:11:59 04/04/20 25 04/04/2025 COMP METAB OLIC PANEL carbon dioxide 28 mmol/ L 24-33 normal Not Available [address] , [place], [address], 04/05/2025 14:11:59 04/04/20 25 04/04/2025 COMP METAB OLIC PANEL anion gap 12.2 mmol/ L 10-20 normal Not Available [address] , [place], [address], 04/05/2025 14:11:59 04/04/20 25 04/04/2025 COMP METAB OLIC PANEL glucose 104 mg/dL 70-99 high Not Available [address] , [place], [address], 04/05/2025 14:11:59 04/04/20 25 04/04/2025 COMP METAB OLIC PANEL blood urea nitrogen 9 mg/dL 7-18 normal Not Available [address] [place], [address], 04/05/2025 14:11:59 04/04/20 25 04/04/2025 COMP METAB OLIC PANEL creatinine 0.72 mg/dL 0.55-1 .02 normal Not Available [address] , [place], [address], 04/05/2025 14:11:59 04/04/20 25 04/04/2025 COMP METAB OLIC PANEL GFR (estimated) 96 mL/mi n >60 normal [IM AIREL NT]: The 2020 CKD-E PI equat ion is now the recom bryanna d stand osmany. This versi on does not inclu de race, as do the 2008 and 2011 CKD-E PI creat inine and creat inine -cyst atin C equat ions. Pleas e note that the eGFR now repor rakel is gener ated by the new 2020 CKD-E PI equat ion, which decre ases the eGFR for black s by up to 10% and incre ases the eGFR for non-b lacks by up to 10% in steve rison to the old equat ion. To steve re a legac y eGFR to a curre nt value , a 2009 CKD-E PI calcu lator is easil y searc hable on the inter net. Calcu lated GFR: This calcu lated GFR is advoc ated by the [place] [employer] at[employer] to be used as an indic ator of Chron ic Kidne y Disea se (CKD) . 5 Stage s of Chron ic Kidne y Disea se. Stage 1 90 mL/mi n or more Healt hy kidne ys or Kidne y damag e with terry l or high GFR detai ls Stage 2 60 to 89 mL/mi n Kidne y damag e and mild decre ase in GFR detai ls Stage 3 30 to 59 mL/mi n Moder ate decre ase in GFR detai ls Stage 4 15 to 29 mL/mi n Sever e decre ase in GFR detai ls Stage 5 Less than 15 mL/mi n On dialy sis or Kidne y failu re Patie nt's clini london statu s must be consi dered for the care of your patie nt. Not Available [address] , [place], [address], 04/05/2025 14:11:59 04/04/20 25 04/04/2025 COMP METAB OLIC PANEL BUN/creatini ne ratio 12 12-20 normal Not Available [address] , [place], [address], 04/05/2025 14:11:59 04/04/20 25 04/04/2025 COMP METAB OLIC PANEL total protein 7.1 g/dL 6.4-8. 2 normal Not Available [address] , [place], [address], 04/05/2025 14:11:59 04/04/20 25 04/04/2025 COMP METAB OLIC PANEL albumin 3.2 g/dL 3.4-5. 0 low Not Available [address] , [place], [address], 04/05/2025 14:11:59 04/04/20 25 04/04/2025 COMP METAB OLIC PANEL globulin 3.9 g/dL 1.5-4. 0 normal Not Available [address] , [place], [address], 04/05/2025 14:11:59 04/04/20 25 04/04/2025 COMP METAB OLIC PANEL albumin/glob ulin ratio 0.8 0.5-2. 0 normal Not Available [address] , [place], [address], 04/05/2025 14:11:59 04/04/20 25 04/04/2025 COMP METAB OLIC PANEL calcium 8.8 mg/dL 8.5-10 .1 normal Not Available [address] , [place], [address], 04/05/2025 14:11:59 04/04/20 25 04/04/2025 COMP METAB OLIC PANEL osmolality serum calculated 279 mOsm/ kg 272-28 8 normal Not Available [address] , [place], [address], 04/05/2025 14:11:59 04/04/20 25 04/04/2025 COMP METAB OLIC PANEL bilirubin total 0.4 mg/dL 0.2-1. 0 normal Use of this assay is not recom bryanna d for patie nts under going treat ment with Eltro mbopa g due to the poten tial for false ly eleva rakel resul ts. Not Available [address] , [place], [address], 04/05/2025 14:11:59 04/04/20 25 04/04/2025 COMP METAB OLIC PANEL SGOT/AST 15 U/L 15-37 normal Not Available [address] , [place], [address], 04/05/2025 14:11:59 04/04/20 25 04/04/2025 COMP METAB OLIC PANEL SGPT/ALT 22 U/L 14-59 normal Not Available [address] , [place], [address], 04/05/2025 14:11:59 04/04/20 25 04/04/2025 COMP METAB OLIC PANEL alkaline phosphatase total 118 U/L 46-116 high Not Available [address] , [place], [address], 04/05/2025 14:11:59 04/04/20 25 04/04/2025 COMP METAB OLIC PANEL performing lab see note ML [facility] [address] [facility] [address] Not Available [address] , [place], [address], 04/05/2025 14:11:59 04/04/20 25 04/04/2025 BILIR UBIN DIREC T note SEE NOTE Order ing Provi thais: Froilan luque MD Not Available [address] , [place], [address], 04/05/2025 14:11:59 04/04/20 25 04/04/2025 BILIR UBIN DIREC T bilirubin direct 0.1 mg/dL 0.0-0. 3 normal Not Available [address] , [place], [address], 04/05/2025 14:11:59 04/04/20 25 04/04/2025 BILIR UBIN DIREC T performing lab SEE NOTE ML - [facility] [address] [place] [address] Not Available [address] , [place], [address], 04/05/2025 14:11:59 04/04/20 25 04/04/2025 ALPHA FETOP ROTEI N TUMOR MARKE R note SEE NOTE Order ing Provi thais: Froilan luque MD Not Available [address] , [place], [address], 04/05/2025 14:12:00 04/04/20 25 04/04/2025 ALPHA FETOP ROTEI N TUMOR MARKE R alpha fetoprotein tumor marker 3.2 NG/mL 0.0-9. 2 Keo Diagn ostic s Elect keo milum inesc ence Immun oassa y (ECLI A) . Value s obtai kalli with diffe rent assay metho ds or kits canno t be used inter storey eably . Resul ts canno t be inter prete d as absol [place] evide nce of the prese nce or absen ce of jeanine botello se. . This test is not inter preta ble in pregn ant femal es. Perfo rmed At: CB, [facility], [place] [address] [place], [address] [facility] rich santamaria, PhD, Phone : [phone] Not Available [address] , [place], [address], 04/05/2025 14:12:00 04/04/20 25 04/04/2025 ALPHA FETOP ROTEI N TUMOR MARKE R performing lab SEE NOTE LC2 - LAB[facility] RP CLIEN T# [id number] [place] [address] Not Available [address] , [place], [address], 04/05/2025 14:12:00 07/20/20 23 07/20/2023 US, liver [facility] Medica l Ce Name: EMILIANO MICHELLE [facility] [employer] Phys: Minnie [address], [place] [address] : 1964 Age: 58 Sex: F Acct: [id number] Loc: G.US PHONE #: Exam Date: 2022 Status : REG CLI FAX #: Rad# [id number] Unit# [id number] Admit Date: 2022 EXAMS: CPT CODE: [id number] [place] LIVER [id number] CLINIC AL INFORM ATION: Nonalc oholic cirrho sis COMPAR BRITTNY: Ultras ound right upper quadra nt 2021 FINDIN GS: Pancre as partia lly visual ized. It is unrema rkable Liver echoge nicity is elevat ed and coarse kalli. Liver enlarg ed to 22 cm long axis. No focal liver lesion s or eviden ce of intrah epatic biliar y duct dilata tion. Hepato pedal portal vein flow. The common bile duct measur es 0.5 cm. There are multip le stones and sludge within the gallbl adder lumen. No wall thicke sara or free fluid. Right kidney promin ent in size at 15 cm long axis. Suspec t probab le nonobs tructi ng stone in the lower pole. IMPRES AUNG: 1. Hepato megaly to 22 cm with coarse sara and elevat ion of the echote xture compat ible with the given histor y of nonalc oholic cirrho sis and/or steato sis 2. Cholel ithias is withou t eviden ce of cholec ystiti s 3. Nonobs tructi ng stone lower pole right kidney COMMUN ICATIO N: Per this writte n report This report is genera rakel using voice recogn ition comput er softwa re. Inadve rtent errors may have occurr ed while dictat ing report . Common sense approa ch is apprec iated and do not hesita te to call for clarif icatio n when necess chay. PAGE 1 Signed Report (TERRELL NUED) [facility] Ce Name: EMILIANO MICHELLE [facility] Phys: Minnie GOOD, [place] [address] : 1964 Age: 58 Sex: F Acct: [id number] Loc: G. PHONE #: Exam Date: 08/22/ 2023 Status : REG CLI FAX #: Rad# [id number] Unit# [id number] Admit Date: 2022 EXAMS: CPT CODE: [id number] [place] LIVER [id number] Electr onical ly Signed by Lorelei Moody on 2022 at 1354 Report ed and signed by: VINCE Moody M.D. CC: Tonie Gibson MD; [place] Hartman Dictat ed Date/T mimi: 2022 (4354) Techno logist : LINDSA Y HINA Transc ribed Date/T mimi: 2022 (4854) Transc riptio nist: DR.HAR ELROY Matos onic Signat ure Date/T mimi: 2022 (0684) Printe d Date/T mimi: 2022 (9735) BATCH NO: N/A PAGE 2 Signed Report CC'ed Logic: Orderi ng Provid er: MINNIE ZHANG Attend ing Provid er: MINNIE ZHANG Referr ing Provid er: MINNIE ZHANG Consul ting Provid er: JOAQUIN SCHILLING [email or web address] [place], [address], 07/21/2023 13:11:18 01/21/20 24 01/21/2024 US, liver [facility] Ce Name: RAFAELJody EMILIANO [address] [place], [place] [address]a [facility] Phys: Minnie GOOD, [place] [address] : 1964 Age: 58 Sex: F Acct: [id number] Loc: G.US PHONE #: Exam Date: 2023 Status : REG CLI FAX #: [phone] Rad# [id number] Unit# [id number] Admit Date: 2023 EXAMS: CPT CODE: [id number] [place] LIVER [id number] CLINIC AL INFORM ATION: PIZANO COMPAR BRITTNY: 8/22/2 023 FINDIN GS: Pancre as: Partia lly obscur ed by bowel gas. Visual ized pancre as unrema rkable Liver: Liver echoge nicity coarse kalli and elevat ed. Liver enlarg ed at 19 cm long axis. No focal hepati c lesion s or biliar y ductal dilata tion. Hepato pedal portal vein flow. Portal vein mildly enlarg ed at 1.6 cm. Gallbl adder: Cholel ithias is withou t wall thicke sara or perich olecys tic inflam mation Common bile duct : 0.6 cm Right kidney : Normal size and morpho logy. No hydron ephros is. Additi onal findin gs: None. IMPRES AUNG: 1. Hepato megaly with coarse sara and elevat ion of the liver echote xture compat ible with the given histor y of [place]. Mild portal vein enlarg ement with hepato pedal flow. 2. Cholel ithias is. This report is genera rakel using voice recogn ition comput er softwa re. Inadve rtent errors may have occurr ed while dictat ing report . Common sense approa ch is apprec iated and do not hesita te to call for clarif icatio n when necess chay. Electr onical ly Signed by Lorelei Moody on 2023 at 1009 Report ed and signed by: VINCE Moody M.D. PAGE 1 Signed Report (TERRELL NUED) [facility] Ce Name: EMILIANO MICHELLE [facility] [employer] [facility] Phys: Minnie GOOD, [place] [address] : 1964 Age: 58 Sex: F Acct: [id number] Loc: G.US PHONE #: Exam Date: 2023 Status : REG CLI FAX #: Rad# [id number] Unit# [id number] Admit Date: 2023 EXAMS: CPT CODE: [id number] [place] LIVER [id number] CC: Tonie Gibson MD; [place] Hartman Dictat ed Date/T mimi: 2023 (1009) Techno logist : Mayra BARRY Transc ribed Date/T mimi: 2023 (1009) Transc riptio nist: DR.HAR ELROY vegaic Signat ure Date/T mimi: 2023 (1009) Printe d Date/T mimi: 2023 (1012) BATCH NO: N/A PAGE 2 Signed Report CC'ed Logic: Orderi ng Provid er: MINNIE ZHANG Attend ing Provid er: MINNIE ZHANG Referr ing Provid er: MINNIE ZHANG Consul ting Provid er: JOAQUIN cooper [address] [place], [address], 01/24/2024 12:17:09 07/19/20 24 07/19/2024 US, liver [facility] Ce Name: EMILIANO MICHELLE [facility] [employer] [facility] Phys: Minnie GOOD, [place] [address] : 1964 Age: 59 Sex: F Acct: [id number] Loc: G.US PHONE #: Exam Date: 2023 Status : REG CLI FAX #: Rad# [id number] Unit# [id number] Admit Date: 2023 EXAMS: CPT CODE: [id number] LIVER [id number] RIGHT UPPER QUADRA NT ULTRAS OUND, 024: CLINIC AL HISTOR Y:PIZANO and cirrho sis COMPAR BRITTNY: None. FINDIN GS: LIVER: The liver demons trates increa sed, coarse kalli echoge nicity and a nodula r contou r, compat ible with cirrho sis. The liver is enlarg ed measur ing 20 cm cranio caudad . There is no focal hepati c mass. There is a vague subcap sular area of decrea sed echoge nicity within the latera l left hepati c lobe, likely repres enting fatty sparin g. The main portal vein measur es 1.7 cm and demons trates hepato petal flow. BILIAR Y TREE: No biliar y dilata tion. The common duct measur es 6 mm. GALLBL ADDER: There are severa l shadow ing stones within the gallbl adder. No gallbl adder wall thicke sara or perich olecys tic fluid. The patien t did not demons trate a sonogr aphic Ojeda sign. PANCRE : The distal pancre atic body and tail cannot be visual ized due to overly ing bowel gas. The visual ized pancre as is within normal limits . RIGHT KIDNEY : 13.4 cm in length . No hydron ephros is. No mass or shadow ing calcul us. FLUID SURVEY : None. IMPRES AUNG: 1. Hepato megaly and hepati c cirrho sis withou t a suspic ious hepati c mass 2. Dilata tion of the main portal vein with normal direct ional flow 3. Cholel ithias is Electr onical ly Signed by ANIYA OCONNELL MD on 2023 at 1042 Report ed and signed by: ANIYA OCONNELL MD PAGE 1 Signed Report (TERRELL NUED) [facility] Name: EMILIANO MICHELLE [address] [place], [place] [address]a [facility] Phys: Minnie GOOD, Haja [facility] [place] [address] : 1964 Age: 59 Sex: F Acct: [id number] Loc: G.US PHONE #: Exam Date: 2023 Status : REG CLI FAX #: [phone] Rad# [id number] Unit# [id number] Admit Date: 2023 EXAMS: CPT CODE: [id number] LIVER [id number] CC: Tonie Gibson MD; Haja Hartman Dictat ed Date/T mimi: 2023 (1042) Techno logist : CIARRA GREWAL RJessicaTJessica Transc ribed Date/T mimi: 2023 (1042) Transc riptio nist: DR.HAG LORENA collado Signat ure Date/T mimi: 2023 (1042) Printe d Date/T mimi: 2023 (1044) BATCH NO: N/A PAGE 2 Signed Report CC'ed Logic: Orderi ng Provid er: MINNIE ZHANG Attend ing Provid er: MINNIE ZHANG Referr ing Provid er: MINNIE ZHANG Consul ting Provid er: JOAQUIN cooper [address] , [place], [address], 07/21/2024 14:29:51 07/21/20 24 07/19/2024 US, liver No observ ation record ed. [address] (Centralized Scheduling) [address] [place] [address] Shawna Foster, [place], [address], 07/21/2024 09:44:08 08/04/20 24 07/19/2024 US, liver No observ ation record ed. [address] (Centralized Scheduling) [address] [place] [address] [place], [address], 08/04/2024 10:23:12 10/09/20 24 07/19/2024 US, liver No observ ation record ed. [address] [place] [address] (Centralized Scheduling) [address] [place] [address] [place], [address], 10/10/2024 12:19:39 04/06/20 25 04/06/2025 US, liver [facility] Name: EMILIANO MICHELLE [employer] [address] Phys: [place] [address] : 1964 Age: 59 Sex: F Acct: [id number] Loc: G.US PHONE #: [phone] Exam Date: 2024 Status : REG CLI FAX #: Rad# [id number] Unit# [id number] Admit Date: 2024 EXAMS: CPT CODE: [id number] US LIVER [id number] EXAM: US LIVER HISTOR Y: NON ALCOHO LIC CIRRHO SIS. COMPAR BRITTNY: 024. FINDIN GS: There are no abnorm alitie s of the imaged portio ns of the pancre as. The hepati c contou r is nodula r and echote xture is slight ly coarse kalli. In additi on, echoge nicity is increa sed. No focal mass is identi fied. The main portal vein is patent . Shadow ing stones are again noted in the gallbl adder. There is no wall thicke sara or perich olecys tic fluid. The common bile duct is normal measur ing 5 mm in diamet er. The right kidney demons trates normal renal echoge nicity with no focal mass or hydron ephros is and measur es 13.4 cm in the long axis. IMPRES AUNG: Hepati c cirrho sis morpho logy with superi mposed hepati c steato sis. No focal mass. Cholel ithias is. Electr onical ly signed by: Uziel Farmer MD 2024 12:49 PM EDT RP Workst ation: [id number] Electr onical ly Signed by UZIEL FARMER on 2024 at 1247 Report ed and signed by: Monie FARMER CC: Tonie Gibson MD; Haja Hartman Dictat ed Date/T mimi: 2024 (1247) Techno logist : ANIYA HENDRICKS Transc ribed Date/T mimi: 2024 (1247) Transc riptio nist: DR.CAI ASHLEY Electr onic Signat ure Date/T mimi: 2024 (1247) Jayna centeno Date/T mimi: 2024 (1254) BATCH NO: N/A PAGE 1 Signed Report CC'ed Logic: Orderi ng Provid er: MINNIE ZHANG Attend ing Provid er: MINNIE ZHANG Referr ing Provid er: MINNIE ZHANG Consul ting Provid er: JOAQUIN SCHILLING [email or web address], [place], [address], 05/11/2025 09:46:26 Result Notes None recorded. Problems Name Problem SNOMED Code Status Onset Date Resolution Date Notes Provider Name and Address Organization Details Recorded Time Imaging of liver abnormal 286100765 Active 2021 Haja Hartman MD [facility] [address] [place] [address], [address], [place] - [facility] - [place] & [place] 2 06:55:09 Diarrhea 05929065 Active 2021 Haja Hartman MD [facility] [address] [place] [address], [address], [place] [facility] - [place] & [place] 2 13:01:47 Rectal hemorrhage 31918150 Active 2021 Haja Hartman MD [facility] [address] [place] [address], [address], [place] [facility] - [place] & [place] 2 13:01:54 Epigastric pain 74799672 Active 2021 Haja Hartman MD [facility] [address] [place] [address], [address], [place] [facility] - [place] & [place] 2 13:04:48 Hepatomegaly 87152641 Active 2022 Haja Hartman MD [address] [place] [address],[address], [place], [address], [place] & [place] 3 06:36:29 Hepatic fibrosis 73333050 Active 2022 Haja Hartman MD [address] [place] [address],[address] [place], [address], [place] [facility] & [place] 3 12:44:19 Cirrhosis - non-alcoholic 909002070 Active 2022 Haja Hartman MD [address] [place] [address],[address] [place], [address], [place] & [place] 3 14:17:26 Dysphagia 56055875 Active 2022 Haja Hartman MD [address] [place] [address],[place] [address], [place], [address], [place] & [place] 3 13:21:47 Morbid obesity 580301932 Active 2023 Haja Hartman MD [address] [place] [address],[facility], [place], [address], [place] & [place] 4 14:26:50 Metabolic dysfunction-as sociated steatotic liver disease Active 2024 Haja Hartman MD [address] [place] [address],[address] [place] [address], [address], [place] [facility] & [place] 5 09:58:30 Problem Notes None recorded. Procedures Surgical History Date Name Laterality Status Provider Name and Address Organization Details Recorded Time 04/06/20 23 barium swallow completed Aniyah Fisher [place] - [facility] - [place] & [place] 07/05/2023 17:10:42 12/08/19 23 biopsy of liver completed homar anders [place] - [facility] - [place] & [place] 12/14/2022 13:38:42 10/13/20 22 Colonoscopy completed Jose A HAYN[facility] - [facility] & [place] 12/03/2022 12:24:42 12/11/19 20 EGD/Endoscopy completed Jose A HAYNES - [facility] & [place] 03/10/2023 12:16:31 10/19/[address] of abdomen and pelvis completed Jose A Simpson [place] - [facility] - [facility] & [place] 10/13/2022 10:41:35 10/17/20 19 EGD/Endoscopy completed Jose A Simpson [place] - [facility] - [facility] & [place] 10/13/2022 10:41:12 Hysterectomy completed Jose A Simpson [place] - [facility] - [facility] & [place] 10/13/2022 10:40:51 Appendectomy completed Jose A Simpson [place] - [facility] & [place] 10/13/2022 10:40:57 Carpal tunnel surgery completed Jose A Simpson [place] - [facility] & [place] 10/13/2022 12:39:47 Imaging Results None recorded. Procedure Notes None recorded. Medical Equipment None Reported. Allergies No known drug allergies Medications Name Sig Start Date Stop Date Status Note LastModified by Organization Details LastModified Time losartan 50 mg tablet TAKE 1 TABLET BY MOUTH EVERY DAY 01/09 completed Not Available Not Available Not Available cyclobenza imani 10 mg tablet TAKE 1 TABLET BY MOUTH EVERY 8 HOURS NEEDED FOR MUSCLE SPASM 03/14 completed Not Available Not Available Not Available furosemide 40 mg tablet TAKE ONE TABLET BY MOUTH DAILY ON MONDAYS, , AND FRIDAYS ONLY NEEDED active Not Available Not Available No t Available metformin 500 mg tablet Take 1 tablet twice a day by oral route. 07/10 completed Not Available Not Available Not Available Klor-Con 20 mEq tablet,ext ended release Take 1 tablet every day by oral route. 01/09 completed Not Available Not Available Not Available valacyclov ir 1 gram tablet TAKE 1 TABLET BY MOUTH EVERY 8 HOURS. 07/10 completed Not Available Not Available Not Available hydrocodon e 5 mg-acetami nophen 325 mg tablet TAKE 1 TABLET BY MOUTH TWICE A DAY NEEDED FOR PAIN active Not Available Not Available No t Available lisinopril 20 mg tablet TAKE 1 TABLET BY MOUTH ONCE DAILY. 07/10 completed Not Available Not Available Not Available prednisone 20 mg tablet PLEASE SEE ATTACHED FOR DETAILED DIRECTIO NS 10/13 completed Not Available Not Available Not Available sertraline 100 mg tablet TAKE 1 TABLET BY MOUTH EVERY DAY 12/03 completed Not Available Not Available Not Available clobetasol 0.05 % topical cream APPLY TOPICALL Y NEEDED active Not Available Not Available No t Available phentermin e 37.5 mg tablet TAKE 1 TABLET BY MOUTH EVERY DAY *MUST TAKE 30 MINUTES BEFORE BREAKFAS T OR 1-2HOURS AFTER BREAKFAS T* 03/14 completed Not Available Not Available Not Available hydrocodon e 10 mg-acetami nophen 325 mg tablet 07/10 completed Not Available Not Available Not Available pantoprazo le 20 mg tablet,del ayed release TAKE 1 TABLET BY MOUTH ONCE DAILY. 04/04 completed Not taking Not Available Not Available Not Available prednisone 10 mg tablets in a dose pack 03/14 completed Not Available Not Available Not Available oxycodone- acetaminop hen 10 mg-325 mg tablet TAKE 1 TAB ORALLY DAILY NEEDED FOR PAIN 12/03 completed Not Available Not Available Not Available OneTouch Ultra Test strips USE TO TEST 2 TIMES DAILY active Not Available Not Available No t Available metformin 1,000 mg tablet TAKE 1 TABLET BY MOUTH TWICE A DAY 07/10 completed Not Available Not Available Not Available nystatin 100,000 unit/gram topical cream APPLY TO THE AFFECTED AREA(S) BY TOPICAL ROUTE 3 TIMES PER DAY PRN active Not Available Not Available No t Available lidocaine 5 % topical patch PLEASE SEE ATTACHED FOR DETAILED DIRECTIO NS 10/13 completed Not Available Not Available Not Available diltiazem CD 120 mg capsule,ex tended release 24 hr TAKE 1 CAPSULE BY MOUTH EVERY DAY 01/09 completed Not Available Not Available Not Available pravastati n 20 mg tablet TAKE 1 TABLET BY MOUTH EVERY DAY 01/09 completed Not Available Not Available Not Available methylpred nisolone 4 mg tablets in a dose pack TAKE 6 TABLETS ON DAY 1 DIRECTED ON PACKAGE AND DECREASE BY 1 TAB EACH DAY FOR A TOTAL OF 6 DAYS 10/13 completed Not Available Not Available Not Available losartan 100 mg tablet TAKE 1 TABLET BY MOUTH ONCE DAILY 07/10 completed Not Available Not Available Not Available Tylenol Extra Strength 500 mg capsule Take 2 capsules twice a day by oral route as needed. 04/04 completed Not Available Not Available Not Available Cholestyra mine Light 4 gram oral powder TAKE 1 SCOOP EVERY DAY BY ORAL ROUTE. 03/14 completed Not Available Not Available Not Available desvenlafa xine succinate ER 50 mg tablet,ext ended release 24 hr TAKE 1 TABLET BY MOUTH ONCE DAILY. active Not Available Not Available No t Available GaviLyte-G 236 gram-22.74 gram-6.74 gram-5.86 gram oral solution TAKE 1 KIT PER PHYSICIA N INSTRUCT IONS. 04/04 completed Not Available Not Available Not Available potassium chloride ER 20 mEq tablet,ext ended release TAKE 1 TABLET BY MOUTH ONCE DAILY NEEDED active Not Available Not Available No t Available Otezla 30 mg tablet TAKE 1 TABLET BY MOUTH TWICE DAILY. active Not Available Not Available No t Available Otezla Starter 10 mg (4)-20 mg (4)-30 mg(47) tablets in a dose pack TAKE DIRECTED PER PACKAGE 07/10 completed Not Available Not Available Not Available OneTouch Ultra2 Meter USE TO TEST 2 TIMES DAILY active Not Available Not Available No t Available OneTouch Delica Plus Lancet 33 gauge USE TO TEST 2 TIMES DAILY active Not Available Not Available No t Available Ozempic 1 mg/dose (4 mg/3 mL) subcutaneo us pen injector INJECT 1 MG (0.75 ML) UNDER THE SKIN ONCE WEEKLY. 07/10 completed Not Available Not Available Not Available Ozempic 2 mg/dose (8 mg/3 mL) subcutaneo us pen injector INJECT 2 MG UNDER THE SKIN ONCE WEEKLY 04/04 completed Not Available Not Available Not Available Ozempic 0.25 mg or 0.5 mg (2 mg/3 mL) subcutaneo us pen injector INJECT 0.25MG SUBCUTAN EOUSLY EVERY WEEK FOR 2 WEEKS THEN 0.5MG EVERY WEEK THEREAFT ER 01/09 completed Not Available Not Available Not Available Vitals Date Recorded Body height Body mass index (BMI) Body weight Body temperature Heart rate Systolic And Diastolic Provider Name and Address Organization Details Last Updated DateTime 4 172.72 cm 41 kg/m2 349835. 78 g 97.6 [degF] 85 /min 117/70 mm[Hg] Emmy De Lunaklin [facility] & [place] 4 13:52:47 Date Recorded Body height Body mass index (BMI) Body weight Body temperature Oxygen saturation Oxygen saturation in Arterial blood by Pulse oximetry Heart rate Systolic And Diastolic Provider Name and Address Organization Details Last Updated DateTime 5 170.18 cm 46.4 kg/m2 621625. 34 g 97.8 [degF] 100 % 100 % 79 /min 130/80 mm[Hg] Mitzi Harvey [facility] & [place] 5 09:42:31 Date Recorded Body height Body mass index (BMI) Body weight Body temperature Heart rate Respiratory rate Systolic And Diastolic Provider Name and Address Organization Details Last Updated DateTime 3 172.72 cm 44.8 kg/m2 550626. 59 g 97.8 [degF] 75 /min 18 /min 141/79 mm[Hg] Jose A Simpson [facility] & [place] 3 13:47:55 Date Recorded Body height Body mass index (BMI) Body weight Body temperature Heart rate Respiratory rate Systolic And Diastolic Provider Name and Address Organization Details Last Updated DateTime 4 170.18 cm 39.6 kg/m2 851394. 87 g 97.6 [degF] 76 /min 16 /min 126/80 mm[Hg] Yolande Kumar [facility] & [place] 4 12:54:10 Date Recorded Body height Body mass index (BMI) Body weight Systolic And Diastolic Provider Name and Address Organization Details Last Updated DateTime 10/10/2024 170.18 cm 39.5 kg/m2 349654.28 g 126/81 mm[Hg] Mitzi Harvey [facility] & [place] 10/10/2024 14:01:09 Social History Question Answer Notes LastModified by Organizat ion Details LastModified Time Tobacco Smoking Status Current Every Day Smoker Jose A Dhillongieri [facility] & [place] 10/13/2022 10:39:31 Do You Have An Advance Directive? No Information not available 07/07/2024 What Is Your Level Of Caffeine Consumption? Moderate 2 Cans Of Pop A Day [email or web address] Information not available 07/06/2023 What Type Of Diet Are You Following? REGULAR Information not available 07/06/2023 What Was The Date Of Your Most Recent Tobacco Screening? 01/09/2024 Information not available 07/07/2024 How Many Children Do You Have? 2 [email or web address] Information not available 07/06/2023 What Is Your Relationship Status? Information not available 07/06/2023 At What Age Did You Start Smoking Tobacco? 15 [email or web address] Information not available 07/06/2023 How Much Tobacco Do You Smoke? 2 PPD Information not available 10/13/2022 Has Tobacco Cessation Counseling Been Provided? No Information not available 07/06/2023 How Many Years Have You Smoked Tobacco? 45 Information not available 07/07/2024 Sex: Female Functional Status Question Answer Note LastModified by Organizat ion Details LastModified Time Do you use any illicit or recreational drugs? No [email or web address] Information not available 12/14/2022 What is your level of alcohol consumption? None Information not available 07/07/2024 What is your exercise level? None Information not available 10/13/2022 Mental Status Question Answer Note LastModified by Organization D etails LastModified Time Do you feel stressed (tense, restless, nervous, or anxious, or unable to sleep at night)? [id number] Information not available 10/13/2022 Family History Relationship Description Onset Age of this Age Resolved Age Notes LastModified by Organization Details LastModified Time Mother Myocardial infarction [email or web address] Not available 10/13 12:36:23 Mother Hypertensive disorder [email or web address] Not available 2021 12:36:58 Mother Diabetes mellitus [email or web address] Not available 2024 09:37:48 Father Myocardial infarction [email or web address] Not available 10/13 12:36:23 Father Hypertensive disorder [email or web address] Not available 2021 12:36:58 Sister Myocardial infarction [email or web address] Not available 10/13 12:36:23 Sister Hypertensive disorder [email or web address] Not available 2021 12:36:58 Sister Diabetes mellitus [email or web address] Not available 2024 09:37:48 Maternal Grandfather Myocardial infarction [email or web address] Not available 10/13 12:36:23 Maternal Grandfather Hypertensive disorder [email or web address] Not available 2021 12:36:58 Maternal Grandfather Diabetes mellitus [email or web address] Not available 2024 09:37:48 Maternal Grandmother Myocardial infarction [email or web address] Not available 10/13 12:36:23 Maternal Grandmother Hypertensive disorder [email or web address] Not available 2021 12:36:58 Maternal Grandmother Diabetes mellitus [email or web address] Not available 2024 09:37:48 Maternal Aunt Primary malignant neoplasm of skin of breast [email or web address] Not available 2024 09:37:48 Paternal Aunt Primary malignant neoplasm of skin of breast [email or web address] Not available 2024 09:37:48 Medical History Condition Response Coronary Artery Disease N None N Gout N Colon Cancer N Kidney Stones N Hyperthyroidism N Depression Y COPD N Hypothyroidism N Osteoporosis/Osteopenia N Diverticulitis/Diverticulosis N Colon Polyps Y Diabetes Y Anxiety Disorder N Bleeding Disorder N Seizures/Epilepsy N Arthritis Y Tuberculosis N Hyperlipidemia N Cancer N Stroke N Asthma N Sleep Apnea N GERD/Reflux Y Hepatitis N Liver Disease Y Cirrhosis Y Heart Disease N Hypertension Y Kidney Disease N Gynecological HistoryNo gynecological history recorded. Obstetrics History GPAL:G 0 P 0 0 0 0 Past Encounters Encounter ID Performer Location Encounter Start Date Encounter Closed Date Diagnosis/Indication Diagnosis SNOMED-CT Code Diagnosis ICD10 Code Diagnosis Note [id number] Haja Hartman MD [facility] [address] [place] [address],[address] [place] [address] 10/13/2022 12:13:51 10/13/2022 16:06:09 Imaging of liver abnormal 150836037 R93.2 Imaging from 2020 demonstrat ed changes suggestive of fatty liver, patient has had the imaging characteri stics much further back in time. The patient's most recent LFTs however 1 normal. She denies any jaundice, pruritus, bruising or bleeding difficulti es. Check Fibroscan, check LFTs. Diarrhea 63545579 R19.7 New, un investigat ed. With occasional rectal bleeding.R ecommend GI pr,ofile by PCR, fecal fat, stool calprotect inin given the associatio n with rectal bleeding recommend colonoscop y. Rectal hemorrhage 767936 02 K62.5 Epigastric pain 42138715 R10.13 Burning epigastric pain. Will start the patient empiricall y on a proton pump inhibitor while we moved towards endoscopic investigat ion. Patient has history of peptic ulcer disease, polyp today symptoms are discrete and not similar to her prior peptic ulcer symptoms, the possibilit y of recurrent ulcer, dyspepsia must be entertaine d. Plan EGD [id number] [facility] [address] [place] [address],[address] [place] [address] 10/27/2022 08:57:49 11/02/2022 08:05:30 Imaging of liver abnormal 852041222 R93.2 [id number] Haja Hartman MD [facility] Gastro[facility]ology [address] [place] [address],[facility] te [address] [place] [address] 10/29/2022 08:20:07 10/29/2022 09:10:22 Imaging of liver abnormal 596851435 R93.2 [id number] Haja Hartman MD [facility] [address] [place] [address],[address] [address] 12/03/2022 12:04:12 12/03/2022 12:57:40 Diarrhea 66316081 R19.7 the patient presents today in follow-up, workup to this point time has included a GI profile by PCR that was negative, and a stool calprotect in was negative. Patient did have a colonoscop y that demonstrat ed no evidence of colitis. Her fecal fat screen was positive, a 72 hour fecal fat was subsequent ly order which mt mix was never accomplish ed. We will reorder at this time, as well as a pancreatic elastase Epigastric pain 14593404 R10.13 improved, recent EGD demonstrat ed minimal gastric irritation , no ulceration , no evidence of H pylori. Continue current therapy Rectal hemorrhage 549996 02 K62.5 colonoscop y without source of bleeding identified , this has resolved. Hepatomegaly 56510886 R1 6.0 Hepatic fibrosis 7257105 2 K74.00 Fibroscan demonstrat ed advanced fibrosis concerning for cirrhosis, liver biopsy was ordered which mt mix was not accomplish ed. Reorder liver biopsy. [id number] Haja Hartman MD [facility] [address] [place] [address],[facility] te [address] [place] [address] 12/14/2022 13:16:51 12/14/2022 14:19:47 Diarrhea 25934818 R19.7 quantitati ve fecal fat still pending, but pancreatic the last taste in stool normal. Suspect quantitati ve fecal fat will be normal. In the interim begin Questran Light 1 scoop with water every day. Cirrhosis - non-alcoholic 641030988 K74.60 the patient's recent liver biopsy demonstrat es cirrhosis, and evidence of nonalcohol ic steatohepa titis.HCC screening - AFP and ultrasound unremarkab le.Recent EGD without evidence of varices.Re commend regular aerobic activity, and weight reduction. [id number] Haja Hartman MD [facility] [address] [place] [address],[address] [address] 03/15/2023 12:45:40 03/15/2023 13:31:37 Cirrhosis - non-alcoholic 098721174 K74.60 the patient's recent liver biopsy demonstrat es cirrhosis, and evidence of nonalcohol ic steatohepa titis.HCC screening - AFP and ultrasound unremarkab le.Recent EGD without evidence of varices.Re commend regular aerobic activity, and weight reduction , weight is down. also discussed potential medical therapy for weight control, and even bariatric surgery. Diarrhea 95698442 R19.7 Resolved Dysphagia 87172075 R13.1 0 Liquid dysphagia, set patient up for modified barium swallow [id number] Haja Hartman MD [facility] [address] [place] [address],[address] [address] 07/06/2023 13:23:39 07/06/2023 14:23:02 Cirrhosis - non-alcoholic 185155332 K74.60 The patient has had excellent response to Ozempic with weight loss approachin g 25 lb, encourage patient to continue to try to increase her exercise to try to maximize the benefit the weight loss that she is had. Recent LFTs are reviewed and scanned in the chart with transamina ses minimally elevated. Check AFP and ultrasound for HCC screening. Follow-up in 6 months Dysphagia 59405368 R13.1 0 the patient's dysphagia has been evaluated with a modified barium swallow that suggested narrowing at the level of the GE junction. Repeat EGD pending [id number] Haja Hartman MD [facility] [address] [place] [address],[address] [address] 01/11/2024 13:36:55 01/11/2024 14:27:21 Cirrhosis - non-alcoholic 384331456 K74.60 The patient has had excellent response to Ozempic with weight loss approachin g 25 lb, encourage patient to continue to try to increase her exercise to try to maximize the benefit the weight loss that she is had. Recent LFTs are reviewed and scanned in the chart with transamina ses minimally elevated. Check AFP and ultrasound for HCC screening. Follow-up in 6 months Dysphagia 57738821 R13.1 0 the patient's dysphagia has been evaluated with a modified barium swallow that suggested narrowing at the level of the GE junction. Repeat EGD pending Morbid obesity 722501584 E66.01 the patient continues to lose weight with Ozempic, now down proximally 45 lb. Encourage patient to now increase her exercise to maximize the benefit. [id number] Haja Hartman MD [facility] [address] [place] [address],[address] [place] [address] 07/10/2024 12:28:03 07/10/2024 13:34:19 Dysphagia 68340450 R13.10 Oropharyng eal dysphagia, referral to speech therapy to see if there are compensato ry techniques that can be utilized to improve her issues. Has had a formal modified barium swallow last year. Cirrhosis - non-alcoholic 751545024 K74.60 Stable, no signs of decompensa tion. Check labs and right upper quadrant ultrasound for HCC screening, also check a comprehens kobi metabolic panel and coags. Rectal hemorrhage 211853 02 K62.5 New onset rectal bleeding, no documented hemorrhoid al problems in the past, plan colonoscop y for evaluation check CBC, suggest fiber supplement in the short term [id number] Haja Hartman MD [facility] [address] [place] [address],[address] [place] [address] 10/10/2024 13:07:08 10/10/2024 14:20:44 Dysphagia 46667361 R13.10 Oropharyng eal dysphagia, referral to speech therapy Made and scheduled, patient however had to cancel because of family issues. She is going to reschedule Cirrhosis - non-alcoholic 613400463 K74.60 Stable, no signs of decompensa tion. MELD score 6, HCC screening up-to-date , no new complaints . Follow-up 6 months Rectal hemorrhage 325408 02 K62.5 colonoscop y demonstrat ed only internal hemorrhoid s, bleeding Has resolved. recommend continued fiber supplement ation. [id number] Haja Hartman MD [facility] Gastroent erology [address],[facility] [address] [place] [address] 04/04/2025 09:36:08 04/04/2025 10:07:16 Dysphagia [id number] R13.10 Oropharyng eal dysphagia, referral to speech therapy Made and scheduled, patient however had to cancel because of family issues. She declined to reschedule , she did discuss her problems with the speech pathologis t by phone gave her some tips to try and this has improved her swallowing . Cirrhosis - non-alcoholic [id number] K74.60 Stable, no signs of decompensa tion. MELD score 6, HCC screening up-to-date , no new complaints . Follow-up 6 months Metabolic dysfunction-associate d steatotic liver disease [id number] K76.0 The patient since coming off Ozempic has gained almost 40 lb, they are looking into other potential agents, I believe this would be a great choice for this patient slow careful advancemen t of the dose Health Concerns Section Related Observation LastModified by Organization Detai ls LastModified Time None Recorded Concern Status LastModified by Organization Details LastModified Time None Recorded Advance Directives Directive N: Payers Insurance Date Sequence Insurance Name Policy Number Policy Fiore Covered Member ID Fiore Member ID Guarantor Name 06/16/2022 1 UNSPECIFIED REMIT PAYOR Ruth Michelle 04/01/2025 1 [place] Ruth Michelle [id number] Ruth Michelle 07/10/2024 1 [place] [id number] Ruth Michelle [id number] Ruth Michelle 04/02/2025 2 [employer] [place] (MEDICAID HMO[place] Ruth Michelle [id number] Ruth Michelle 09/18/2024 2 UNSPECIFIED REMIT PAYOR Ruth Michelle OBGyn Episode No OBEpisode recorded.
--- NOTE | 2025-06-26 07:00 | CT_ITS ---
FINAL REPORT TECHNIQUE: Thin section axial images were obtained through the lungs using a low-dose technique per lung cancer screening protocol. Reconstruction images were obtained using the axial data. This study was performed with techniques to keep radiation doses as low as reasonably achievable, (ALARA). Individualized dose reduction techniques using automated exposure control or adjustment of mA and/or kV according to the patient's size were employed. CLINICAL HISTORY: Lung cancer screening Current smoker 2ppd x46 years COMPARISON: None FINDINGS: CTDLvol: 2.90 DLP: 101.34 Current smoker 92 pack year history Lungs: There is a 4 mm left upper lobe pulmonary nodule on series 4 image 33. There is a 7 mm nodule in the medial right lower lobe on series 4 image 71. The lungs are otherwise clear. Lymph nodes: No thoracic lymphadenopathy. Mediastinum: Heart size is normal. Pleura/pericardium: No pleural or pericardial effusion. There are prominent coronary artery calcifications. Other: In the upper abdomen, there is a left adrenal nodule. IMPRESSION: Bilateral pulmonary nodules, largest measuring 7 mm. Coronary artery calcifications. Left adrenal nodule. Lung RADS: 3S Modifier S: Coronary artery calcifications. Recommendation: 6-month follow-up chest CT per Lung RADS criteria. Reviewed, Interpreted and Dictated by Saranya Carmona MD Transcribed by Sendy Valente Authenticated and [facility]
== END 2025-06-26 23:59 | disposition home or self-care (01) ==
LOC: RAD 06:51
PROVIDERS: PCP Family Medicine; Visit Provider Family Medicine
DX: I25.10 Atherosclerotic heart disease of native coronary artery without angina pectoris (principal); R91.8 Other nonspecific abnormal finding of lung field; F17.210 Nicotine dependence, cigarettes, uncomplicated; Z12.2 Encounter for screening for malignant neoplasm of respiratory organs
CPT/HCPCS: 71271

== ENCOUNTER 2025-07-21 06:12 | Emergency (ER) | payer MEDICARE, MEDICAID, SELFPAY ==
--- OUTSIDE RECORDS SUMMARY | 2025-07-21 06:21 | XMS_ITS | Clinical Summary ---
Author Organization [facility] S Address [address] [place] [address] Phone Care Team Providers Care Pressurization Mechanic Name Role Phone Mario Gibson MD Primary Care Provider [phone] Allergies No known active allergies Medications No [...] age to complete this topic Care Teams Pressurization Mechanic Relationship Specialty Start Date End Date Mario Gibson MD PCP - General Family Medicine 12/06/13
[2025-07-21 06:24] VITALS: BP 143/103; PULSE 69; RESP 16; TEMP 37; O2SAT 97; BMI 49.3
--- NOTE | 2025-07-21 06:46 | PC.NURSE ---
aCtherine, at bed side.
--- NOTE | 2025-07-21 06:47 | XR_ITS ---
PROCEDURE INFORMATION: Exam: XR Right Foot Exam date and time: 07/21/2025 7:00 AM Age: 60 years old Clinical indication: Pain; Foot; Right; Additional info: Right foot pain TECHNIQUE: Imaging protocol: Radiologic exam of the right foot. Views: 3 or more views. COMPARISON: CR XR ANKLE RT MIN 3V 07/21/2025 7:00 AM FINDINGS: Bones/joints: Degenerative changes in the 1st metatarsal phalangeal joint and IP joint. Degenerative changes in the tarsal bones and tarsometatarsal joints. Lucencies in the proximal aspect of the 5th metatarsal consistent with acute. minimally displaced fractures. Soft tissues: Normal. IMPRESSION: 1. Degenerative changes in the 1st metatarsal phalangeal joint and IP joint. 2. Lucencies in the proximal aspect of the 5th metatarsal consistent with acute. minimally displaced fractures.
--- NOTE | 2025-07-21 06:47 | XR_ITS ---
PROCEDURE INFORMATION: Exam: XR Right Ankle Exam date and time: 07/21/2025 7:00 AM Age: 60 years old Clinical indication: Pain; Ankle; Right; Additional info: Right ankle pain TECHNIQUE: Imaging protocol: Radiologic exam of the right ankle. Views: 3 or more views. COMPARISON: CR XR FOOT RT MIN 3V 07/21/2025 7:00 AM FINDINGS: Bones/joints: There is no evidence of acute fracture.There is no evidence of malalignment or dislocation. Soft tissues: Soft tissue swelling of the ankle IMPRESSION: There is no evidence of acute fracture.There is no evidence of malalignment or dislocation.
--- NOTE | 2025-07-21 06:54 | ED_ITS ---
Discharge Plan Disposition Patient Disposition: Home, Self-Care Condition: Good Prescriptions Prescriptions: New methocarbamol 500 mg tablet 500 mg PO Q8H PRN (Reason: as needed for pain) Qty: 90 0RF No Action ibuprofen 200 mg tablet 200 mg PO Q6H PRN (Reason: .) hydrocodone-acetaminophen 5-325 mg tablet 1 tab PO TID PRN (Reason: pain) Qty: 90 0RF clobetasol 0.05 % cream 1 applic topical BID Qty: 30 3RF desvenlafaxine succinate [Pristiq] 50 mg tablet extended release 24 hr 50 mg PO DAILY Qty: 90 3RF furosemide [Lasix] 40 mg tablet 40 mg PO .prn Qty: 90 0RF Rx Instructions: Decrease to MWF only. potassium chloride 20 mEq tablet extended release 20 meq PO .prn Qty: 90 0RF Otezla 30 mg tablet See Rx Instructions .ROUTE .COMPLEX Qty: 60 10RF Dose Instruction: TAKE 1 TABLET BY MOUTH TWICE A DAY Rx Instructions: TAKE 1 TABLET BY MOUTH TWICE A DAY diltiazem HCl [Cardizem CD] 120 mg Capsule,Extended Release 24hr 120 mg PO DAILY Qty: 30 3RF Referrals Follow up/Referrals: Mario Gibson MD [Primary Care Provider, Family Practice] - See instructions Alicia Arias DPM [Staff Physician, Podiatry] - See instructions Activity Restrictions/Add. Instructions Additional Instructions/Restrictions: Please continue to take your prescribed oxycodone at home. You may also take Tylenol and ibuprofen. I will also prescribe you Robaxin. I am referring you to see podiatry for the foot fractures. They should be calling to schedule an appointment. If you do not hear from them, please call the provided number to schedule an appointment. Please wear hard soled shoe we are providing. Please use crutches as tolerated. Return to the ER with any worsening or concerning symptoms. Thank you for allowing us to care for you. Clinical Impressions Clinical Impression: Fracture of right foot Qualifiers: Encounter type: initial encounter Fracture type: closed Qualified Code(s): S92.901A - Unspecified fracture of right foot, initial encounter for closed fracture Instructions Patient Instructions: Foot Fracture Print Language Print Language: Divehi Discharge ED Provider: Julio Cesar Barahona JR General Adult HPI General Chief complaint: PAIN Stated complaint: pain R foot, can't ambulate Time Seen by Provider: 07/21/25 06:39 Mode of Arrival: Wheelchair Source of Information: Patient Limitations: No Limitations Description of Symptoms (Recalled from ER Triage Doc. by RN): PT presents to the ED for evaluation of L foot. PT brought in via WC, stand by assistance for transfer to bed. PT stated 07/20/2025 it felt as if she was walking on a golf ball on the bottom lateral side. Foot is noted to be swollen. Pt stated her second toe has been swollen for about a month. PT has a recent dx of two nodules on lungs dx at this hospital. History of Present Illness HPI narrative: This is a 60-year-old female patient with history of coronary artery disease, cirrhosis of the liver, history of appendectomy, recently diagnosed with lung nodules, tobacco abuse, depression, diabetes, psoriasis, obesity who is presenting for acute onset right foot pain while walking last night, worse this morning, waking up from sleep. Patient is maximally tender to the arch of the right foot. She complains of difficulty walking secondary to the pain this morning, prompting her to visit the ER today. No other complaints or injuries noted. Patient does have a PCP who she has follow-up with. Onset (ago): day(s) (Last night) Location: lower extremity (Right foot) Radiation: non-radiation Severity: severe Severity scale (1-10): 10 Quality: sharp Consistency: constant Relieving factors: rest Exacerbating factors: movement Associated symptoms: denies other symptoms Treatments prior to arrival: none Related Data Home Medications ?Medication ?Instructions ?Recorded ?Confirmed ibuprofen 200 mg tablet 200 mg PO Q6H PRN . 02/01/23 06/22/25 Previous Rx's ?Medication ?Instructions ?Recorded clobetasol 0.05 % topical cream 1 applic topical BID # 30 grams 05/24/23 diltiazem HCl 120 mg 120 mg PO DAILY #30 caps 10/21 capsule,extended release 24 hr (Cardizem CD) desvenlafaxine succinate 50 mg 50 mg PO DAILY #90 tabs 12/21/24 tablet,extended release 24 hr (Pristiq) furosemide 40 mg tablet (Lasix) 40 mg PO .prn edema #9 0 tabs 03/21/25 potassium chloride 20 mEq 20 meq PO .prn #90 tabs 02/28 02/20 tablet,extended release apremilast 30 mg tablet (Otezla) See Rx Instructions . Route 05/21/25 .COMPLEX #60 tabs hydrocodone 5 mg-acetaminophen 325 1 tab PO TID PRN pa in #90 tabs 07/19/25 mg tablet methocarbamol 500 mg tablet 500 mg PO Q8H PRN as neede d for 07/21/25 pain #90 tabs Allergies Allergy/AdvReac Type Severity Reaction Status Date / Time No Known Allergies Allergy Verified 06/22/25 08:35 [facility] Disclaimer: The information contained in this section may have been updated after the bradley ent was seen, as this information can be updated by other users. Medical History (Updated 07/21/25 @ 08:06 by Julio Cesar Barahona JR, DO) Family history of lung cancer Medication management CAD (coronary artery disease) Cirrhosis of liver Abnormal result of cardiovascular function study Abnormal electrocardiogram [ECG] [EKG] Surgical History History of partial hysterectomy Hx of appendectomy Family History Other Cancer Coronary artery disease Dementia Diabetes Heart attack Hyperlipidemia Hypertension Social History (Updated 06/22/25 @ 08:52 by Rachel Azevedo MA) Smoking Status: Current every day smoker tobacco type: cigarettes packs per day: 2 second hand exposure: No alcohol intake: current alcohol intake frequency: holidays/special occasions only substance use type: denies use current occupational status: disabled Travel in the last 8 weeks?: None household members: spouse and children housing: house current occupational exposures/hazards: No caffeine: No Have you lived/traveled outside US in past 30 days?: No Contact w/someone who lives/traveled outside US past 30 days?: No Exposure to someone with infectious disease in past 14 days?: No Do you have a fever (greater than 100.4 F or 38 C)?: No Have you tested positive for COVID-19?: No Exposed to someone with COVID-19 in past 14 days?: No Do you have a sore throat?: No Do you have a cough?: No Do you have any weakness?: No Do you have any diarrhea?: No Are you experiencing any unusual bleeding?: No Do you have any muscle aches/pain?: No Do you have any abdominal pain?: No Are you experiencing loss of taste or smell?: No Other Medical History Have you received the Flu Vaccine for this season: No Have you received the Pneumonia Vaccine: No ROS Obtained: Yes All systems reviewed & no additional complaints except as documented and Yes Systems reviewed as appropriate & no additional complaints except as documented Constitutional Constitutional: Reports system reviewed and no additional complaints, except as documented and Reports as per HPI Eyes Eyes: Reports system reviewed and no additional complaints, except as documented and Reports as per HPI ENT Ears, Nose, Mouth, and Throat: Reports system reviewed and no additional complaints, except as documented and Reports as per HPI Cardiovascular Cardiovascular: Reports system reviewed and no additional complaints, except as documented and Reports as per HPI Respiratory Respiratory: Reports system reviewed and no additional complaints, except as documented and Reports as per HPI Gastrointestinal Gastrointestingal: Reports system reviewed and no additional complaints, except as documented and as per HPI Genitourinary Female Genitourinary: Reports system reviewed and no additional complaints, except as documented and Reports as per HPI Musculoskeletal Comments: Severe right foot pain, worse to the right arch Neurologic Neurologic: Reports system reviewed and no additional complaints, except as documented and Reports as per HPI Physical Exam General General appearance: alert and in no apparent distress Head Head exam: atraumatic and normocephalic Eye Eye exam: Present PERRL and EOMI ENT ENT exam: Present normal exam Neck Neck exam: Present normal inspection and full ROM Chest Chest inspection: Present normal inspection Respiratory Respiratory exam: Present normal lung sounds bilaterally; Absent respiratory distress Cardiovascular Cardiovascular exam: Present regular rate and normal rhythm Extremities Exam Extremities exam: Present tenderness (Tenderness to palpation to arch of right foot, medial malleolus, lateral malleolus, calcaneus) Neurological Exam Neurological exam: Present alert and oriented X3 Skin Skin exam: Present warm and dry Medical Decision Making Medical Records Medical records reviewed: Yes I reviewed the patient's medical records. Screening: Per USPSTF and CDC recommendations, given the prevalence of disease in our region, it is our hospital?s policy to screen for HIV and viral Hepatitis for all patients aged 18 and over and those with ongoing risk factors. Edwar Inquiry Pt receiving controlled substance: No Vital Signs: 07/21/25 06:24 Temperature 98.6 F Temperature Source Oral Pulse Rate [Right] 69 Respiratory Rate 16 Blood Pressure [Right Arm] 143/103 H Blood Pressure Mean [Right Arm] 116 02 Sat by Pulse Oximetry 97 Lab Data Lab results reviewed: Yes I reviewed the patient's lab results. Orders (Tests/Meds): ED MEDICATIONS Discontinued Medications Generic Name Dose Route Start Last Admin Trade Name Elías PRN Reason Stop Dose Admin Acetaminophen 1,000 mg 07/21/25 06:47 07/21/25 07:18 Acetaminophen 500mg Tab PO 07/21/25 06:48 1,000 mg ONCE ONE Administration Ibuprofen 600 mg 07/21/25 06:47 07/21/25 07:18 Ibuprofen 600 Mg Tablet PO 07/21/25 06:48 600 mg ONCE ONE Administration Methocarbamol 500 mg 07/21/25 06:50 07/21/25 07:17 Methocarbamol 500mg Tablet PO 07/21/25 06:51 500 mg ONCE ONE Administration ORDERS Category Date Time Status Ankle XR -Right minimum 3 Views [XR ankle RT min 3V] Exams 07/21/25 06:47 Completed Stat Foot XR right minimum 3 views [XR foot RT min 3V] Stat Exams 07/21/25 06:47 Completed Medical Decision Narrative: This is a 60-year-old female with complicated medical history including cirrhosis, CAD, history of upper GI bleed, recently diagnosed with lung nodules, and obesity, presenting with acute onset right foot pain, worse over the right arch. Patient has bony tenderness to right foot and ankle. Obtain x-ray imaging. X-rays reviewed and inability reported, significant for acute minimally displaced fractures to right fifth metatarsal. Please see radiology report for further details. Radiology report MPRESSION: 1. Degenerative changes in the 1st metatarsal phalangeal joint and IP joint. 2. Lucencies in the proximal aspect of the 5th metatarsal consistent with acute. minimally displaced fractures. Patient feels better after multimodal pain control here in the ED. We will give crutches and hard soled shoe and give podiatry follow-up. Able to ambulate with hard soled shoe. All questions answered. Return precaution given. Critical Care Critical Care Time Critical Care Time: No
[2025-07-21] MEDS: METHOCARBAMOL 500MG TABLET 500 MG PO (07:17)
[2025-07-21] MEDS: ACETAMINOPHEN 500MG TAB 1000 MG PO (07:18)
[2025-07-21] MEDS: IBUPROFEN 600 MG TABLET PO (07:18)
[2025-07-21 08:09] VITALS: BP 137/58; PULSE 81; RESP 18; TEMP 36.8; O2SAT 97
== END 2025-07-21 08:16 | disposition home or self-care (01) ==
PROVIDERS: Emergency Provider Student in an Organized Health Care Education/Training Program; PCP Family Medicine
DX: S92.351A Displaced fracture of fifth metatarsal bone, right foot, initial encounter for closed fracture (principal); M79.671 Pain in right foot; X58.XXXA Exposure to other specified factors, initial encounter
CPT/HCPCS: 73610; 73630; 99282; 99283

== ENCOUNTER 2025-08-20 11:28 | Outpatient (CLI) | payer MEDICARE, MEDICAID, SELFPAY ==
--- OUTSIDE RECORDS SUMMARY | 2025-08-20 11:32 | XMS_ITS | Clinical Summary ---
Author Organization [facility] S Address [address] [place] [address] Phone Care Team Providers Care Brick Chimney Builder Name Role Phone Mario Gibson MD Primary Care Provider [phone] Allergies No known active allergies Medications No [...] Screening 06/25/2019 Colonoscopy 06/25/2019 06/25/2014 COVID-19 Vaccine (1 - 2023-2 5 season) 2025 Influenza Vaccine (#1) 2025 Hepatitis B Vaccine Aged Out No longe r eligible based on patient's age to complete this topic Meningococcal B Vaccine Aged Out No l onger eligible based on patient's age to complete this topic Care Teams Brick Chimney Builder Relationship Specialty Start Date End Date Mario Gibson MD PCP - General Family Medicine 12/06/13
--- NOTE | 2025-08-20 11:33 | XR_ITS ---
FINAL REPORT CLINICAL HISTORY: Evaulation of right foot fracture FINDINGS: RIGHT FOOT 3 views of the right foot were obtained. There is a well-corticated calcification adjacent to the base of the fifth metatarsal favored to be related to old fracture. No other acute osseous abnormality is seen. There is degenerative joint disease, most pronounced of the mid and hindfoot. Soft tissues are unremarkable. IMPRESSION: No acute bony abnormality of the right foot. Reviewed, Interpreted and Dictated by Saranya Carmona MD Transcribed by Janna King Authenticated and . [facility]
== END 2025-08-20 23:59 | disposition home or self-care (01) ==
LOC: RAD 11:31
PROVIDERS: PCP Family Medicine; Visit Provider Podiatrist
DX: S92.351D Displaced fracture of fifth metatarsal bone, right foot, subsequent encounter for fracture with routine healing (principal); X58.XXXD Exposure to other specified factors, subsequent encounter; M19.071 Primary osteoarthritis, right ankle and foot
CPT/HCPCS: 73630

== ENCOUNTER 2025-09-06 09:43 | Outpatient (CLI) | payer MEDICARE, MEDICAID, SELFPAY ==
--- NOTE | 2025-09-06 09:30 | XR_ITS ---
FINAL REPORT TECHNIQUE: Bone densitometry calculations of the lumbar spine and bilateral hips were obtained. CLINICAL HISTORY: Osteoporosis Screening/Fracture COMPARISON: None FINDINGS: Using L1-4, the bone mineral density of the spine is 0.949 g/cm2, corresponding to T-score of -0.9 and a Z score of 0.6. This is within the range of normal. Using the left hip, the bone mineral density of the femoral neck is 0.983 g/cm2, corresponding to a T-score of 1.2 and a Z-score of 2.5. This is within the range of normal. Using the right hip, the bone mineral density of the femoral neck is 0.697 g/cm?, corresponding to a T-score of -1.4 and a Z-score of 0.0. This is within the range of osteopenia. NOTE: T-score: Standard deviation compared with peak bone mass of young adult mean. *Following the recommendations of the International Society of Bone densitometry, classification of hip BMD is based on the lower of two T-scores; total hip or femoral neck. IMPRESSION: 1. Bone mineral density of the lumbar spine and left femoral neck within the range of normal. 2. Bone mineral density of the right femoral neck within the range of osteopenia. Reviewed, Interpreted and Dictated by Saranya Carmona MD Transcribed by Sahra Saldivar Authenticated and . [facility]
== END 2025-09-06 23:59 | disposition home or self-care (01) ==
LOC: RAD 09:44
PROVIDERS: PCP Nurse Practitioner Family; Visit Provider Nurse Practitioner Family
DX: M85.88 Other specified disorders of bone density and structure, other site (principal); M84.40XA Pathological fracture, unspecified site, initial encounter for fracture; Z91.89 Other specified personal risk factors, not elsewhere classified
CPT/HCPCS: 77080